=== PATIENT | male | born 1950 | race Caucasian/White ===

== ENCOUNTER 2016-07-11 05:14 | Inpatient (IN) | payer OTHER ==
[2016-07-05 10:48] LABS: INR 4.2; PROTIME 44.1 Seconds (9.3-11.4)
[2016-07-11] VITALS (9 sets, daily range): BP systolic 114–150; BP diastolic 65–96
[~2016-07-11] VITALS: Ht 175.3 cm; Wt 126.6 kg
--- NOTE | ~2016-07-11 | O ---
[facility] [place] [address] OPERATIVE REPORT Name: CHUCKIE CONTRERAS Room #: 426-P [facility] IN .R.#: [id number] Admission: 07/11/16 Attend Phys: Dell Pearce MD Discharge: Date of : 48 Report #: [id number] THIS REPORT FOR: //name// CC: Dell Paul DATE OF SERVICE: 07/11/2016 PREOPERATIVE DIAGNOSES: 1. Left hindfoot osteoarthritis. 2. Left foot flat foot. POSTOPERATIVE DIAGNOSES: 1. Left hindfoot osteoarthritis. 2. Left foot flat foot. PROCEDURE: Left foot triple arthrodesis. SURGEON: Dell Paerce M.D. ANESTHESIA: General. ESTIMATED BLOOD LOSS: Minimal. TOURNIQUET TIME: 90 minutes. DESCRIPTION OF PROCEDURE: The patient brought to the operating room where he is placed under general anesthesia. Once under adequate general anesthesia, his left lower extremity was prepped and draped in sterile manner. The extremity was elevated, exsanguinated, tourniquet placed to 300 mmHg. A lateral incision based over the sinus tarsi was then made to dissect down through the soft tissue to the extensor digitorum brevis and the fat pad overlying the sinus tarsi. This was then elevated off of the joint and subsequent exposure of the calcaneocuboid and subtalar joints was achieved. These were then subsequently prepared utilizing osteotomes, curettes and a erwin to good bleeding subchondral bone. A dorsal incision approximately 3 cm in length was made over the talonavicular joint, this was dissected down through soft tissue to the talonavicular joint, which was then exposed with a 15 blade and subsequently prepared in a similar manner as the subtalar and calcaneocuboid joints. Once prepared, a demineralized bone matrix allograft was placed into each of the joints and subsequent fixation across the subtalar joint was achieved with two 7.3 mm cannulated screws for fixation. Excellent fixation across this was achieved in excellent position. Two 4.5 mm cannulated screws were placed across the calcaneocuboid joint and three were placed across the talonavicular joint utilizing fluoroscopy for guidance. Once complete, excellent fixation and alignment was achieved, the wounds were irrigated copiously and closed with 2-[address] [address] OPERATIVE REPORT Name: DIANECHUCKIE L Room #: 426-P [facility] IN [facility].#: [id number] Admission: 07/11/16 Attend Phys: Dell Pearce MD Discharge: Date of : 48 Report #: [id number] Vicryl in deep and subcutaneous tissues and ania were used for the skin. The wounds were dressed with Xeroform, 4 x 4s and sterile soft compressive dressing and a short leg cast was then placed. Tourniquet was let down at 90 minutes. Toes were pink and warm with good capillary refill. There were no complications from the procedure. The patient tolerated the procedure well and went to recovery room without incident. <ELECTRONICALLY SIGNED> By: Dlel Pearce MD 07/13/16 0831 1101 1122 Dell Pearce MD /nt
--- NOTE | ~2016-07-11 | H ---
[facility] [address] [address] HISTORY AND PHYSICAL Name: CHUCKIE CONTRERAS Helga Room #: 426-P ADM IN M.R.#: [id number] Admission: 07/11/16 Attend Phys: Dell Pearce MD Discharge: Date of : 48 Report #: [id number] THIS REPORT FOR: //name// For History and Physical, please see office documentation/handwritten note in the patient's medical record. <ELECTRONICALLY SIGNED> By: Dell Pearce MD 07/14/16 0742 1533 Dell Pearce MD /
--- NOTE | ~2016-07-11 | HC ---
[facility] [place] [address] CONSULTATION Name: CHUCKIE CONTRERAS Room #: 426-P ADM IN M.R.#: [id number] Admission: 07/11/16 Attend Phys: Dell Pearce MD Discharge: Date of : 48 Report #: [id number] THIS REPORT FOR: //name// CC: Dell Modien Humberto DATE OF SERVICE: 07/14/2016 The patient was seen for consultation on 07/14/2016. REQUESTING PHYSICIAN: Dr. Eddy. REASON FOR CONSULTATION: Medical management. HISTORY OF PRESENT ILLNESS: The patient is a 66-year-old man who was admitted to the hospital for further evaluation and treatment on left flatfoot and the patient developed bilateral septic arthritis, and he underwent procedure for this as well. The patient is currently treated with antibiotics. He is recovering well. He tolerates physical therapy. He is currently afebrile, and has no complaints. His pain is well controlled. The patient was diagnosed with diabetes mellitus type 2 about 10 years ago. He takes metformin and glipizide at home, and does not take insulin. He denies chronic complications of diabetes. Although his creatinine has been elevated for quite some time, he is unaware of this. The patient states that his blood sugars are well controlled at home, reports glucose levels between 90 and 120 most of the time. While here, his blood sugars have been in the 120s. The patient cannot recall his last hemoglobin A1c. The patient also has history of hypertension. He denies history of coronary artery disease or strokes. His blood pressure has been mostly well controlled while he is here. Today, his blood pressure was borderline low, so lisinopril was held. Currently, the patient feels well. As noted, his pain is well controlled. He feels well. He denies shortness of breath, chest pain, or other symptoms. PAST MEDICAL HISTORY: 1. Diabetes mellitus type 2, diagnosed about 10 years ago. 2. Chronic kidney disease stage 3. 3. Chronic back pain status post back surgery. 4. Morbid obesity. 5. Hypertension. 6. GERD. [facility] [address] [place] [address] CONSULTATION Name: CHUCKIE CONTRERAS Helga Room #: 426-P [facility] IN [facility].#: [id number] Admission: 07/11/16 Attend Phys: Dell Pearce MD Discharge: Date of : 48 Report #: [id number] 7. DVT and PE, history, on chronic anticoagulation with Coumadin. 8. History of ____. 9. Dyslipidemia. CURRENT MEDICATIONS: Reviewed and documented in the patient's chart. FAMILY HISTORY: Reviewed and ____ the patient's current condition. SOCIAL HISTORY: The patient lives with his . He smokes cigarettes. He does not drink alcohol. PHYSICAL EXAMINATION: GENERAL: The patient is a middle-aged man who is in no apparent distress. He is alert and oriented x 3. VITAL SIGNS: Blood pressure currently is 94/48, heart rate is 102, respiration is 18, temperature is 98.4. HEENT: Pupils are equal. Eye movements are normal. Sclerae are anicteric. NECK: Supple. The patient has no thyromegaly. He has no JVD or carotid bruits. RESPIRATORY: Chest moves symmetrically with breathing. LUNGS: Clear to auscultation bilaterally. CARDIOVASCULAR: The patient has regular rhythm and rate. He has no murmurs, gallops, or rubs. GASTROINTESTINAL: Abdomen is soft, nondistended, and nontender. Bowel sounds are present. MUSCULOSKELETAL: Left leg is in cast. Range of motion cannot be assessed due to recent surgery at knee joints. He has no edema, cyanosis, or clubbing. NEUROLOGIC: The patient is alert and oriented x 3. His examination is nonfocal. SKIN: The patient has no skin lesions. Skin is dry and warm. LABORATORY DATA: Basic metabolic profile was essentially normal, except with creatinine of 1.7, which has been chronically elevated for at least 2 years, per our records. Glucose is 262. GFR is 40. On CBC, white count is normal. Hemoglobin is 12.2, hematocrit is 37.8, and platelets 230. ASSESSMENT AND PLAN: A 66-year-old man status post orthopedic surgery as detailed above. As noted, the patient had bilateral arthroscopic surgery at the mid joint for septic joint. The patient is doing well, and currently he is afebrile. He tolerated physical therapy well. 1. Diabetes mellitus type 2. The patient has hyperglycemia while he is here. Overall glycemic control is unclear, so we are checking hemoglobin A1c. Given the patient's history of chronic kidney disease and low creatinine clearance, we [address] [address] CONSULTATION Name: CHUCKIE CONTRERAS Helga Room #: 426-P ADM IN M.R.#: [id number] Admission: 07/11/16 Attend Phys: Dell Pearce MD Discharge: Date of : 48 Report #: [id number] will stop metformin, which is relatively contraindicated. The patient will be continued on Januvia and glipizide. He is already on sliding scale insulin, which will be continued for now. We will add Levemir 10 units at night, which will be adjusted depending on the glycemic control. 2. Hypertension. Currently, blood pressure is borderline low. Lisinopril was held today. We will reduce dose from 40 mg once a day to 20 mg once a day, and we will monitor. 3. Chronic kidney disease stage 3. Creatinine is 1.7, that is at baseline. This will be monitored. 4. Deep vein thrombosis prophylaxis. The patient has history of DVT and PE, so he was resumed on Coumadin. Current INR is 1.6. He is on Coumadin 10 mg. INR will be followed, and Coumadin will be adjusted accordingly. Subcutaneous Lovenox will be discontinued once INR is therapeutic. 5. Morbid obesity. We will continue to follow the patient during the hospitalization, and we will provide further recommendations. Once again we appreciate the opportunity of participating in the care of your patient. <ELECTRONICALLY SIGNED> By: Ashlee Carballo MD 07/15/16 1349 1706 0018 Ashlee Carballo MD /nt
--- NOTE | ~2016-07-11 | EKG ---
[address] [place] [employer] [place] [address] ELECTROCARDIOGRAM REPORT Name: CHUCKIE CONTRERAS Room #: PRE IN [facility]#: [id number] Admission: Attend Phys: Dell Pearce MD Discharge: Date of : 48 Report #: [id number] THIS REPORT FOR: //name// [facility] Test Date: 2016-07-05 Test Time: 10:31:45 Pat Name: CHUCKIE CONTRERAS Department: Room: Gender: M [employer]door [employer] Director: kaur burgos : 1950 Requested By: Dell Pearce Order Number: [id number] MD: Hai Moran Measurements Intervals [place] Rate: 95 P: 51 NV: 160 QRS: 2 QRSD: 100 T: 26 QT: 335 QTc: 421 Interpretive Statements Sinus rhythm Low voltage, precordial leads Compared to ECG 11/25/2015 09:39:55 No significant changes Electronically Signed On 07-05-2016 14:58:59 KEY ACCOUNT COORDINATOR by Hai Moran [email or web address] <ELECTRONICALLY SIGNED> By: Hai Moran MD 07/05/16 1458 30 30 Hai Moran MD /ASAEL
--- NOTE | ~2016-07-11 | O ---
[facility] [place] [address] [address] [place] [address] OPERATIVE REPORT Name: CHUCKIE CONTRERAS Helga Room #: 426-P [facility] IN .R.#: [id number] Admission: 07/11/16 Attend Phys: Dell Pearce MD Discharge: 07/15/16 Date of : 48 Report #: [id number] THIS REPORT FOR: //name// CC: Dell Paul DATE OF SERVICE: 07/14/2016 SERVICE: Orthopedics. POSTOPERATIVE DIAGNOSES: 1. Left knee septic arthritis. 2. Painful acute right knee effusion. 3. Bilateral knee osteoarthritis. 4. Diabetes mellitus. 5. Status post left ankle, hindfoot triple arthrodesis. COMPLICATIONS: None. DRAINS: None. SPECIMENS: 1. Left knee aspirate sent for cytology and cultures. 2. Right knee aspirate sent for cytology and cultures. FINDINGS: 1. Cloudy burns-colored fluid obtained from the left knee. 2. Yellowish cloudy fluid obtained from the right knee with an overall healthier appearance. 3. Six liters irrigated through both knees. NAME OF THE PROCEDURE: 1. Left knee arthroscopy with irrigation and debridement. 2. Right knee percutaneous irrigation. 3. Left ankle cast change under anesthesia. HISTORY AND INDICATIONS: The patient is a 66-year-old male with extensive list of medical comorbidities including diabetes and pulmonary disease who is 2 days status post left hindfoot triple arthrodesis at this facility. He was admitted postoperatively and did well the first postoperative day. That evening, he began developing swelling in the knees. On the second postoperative day, he began developing significant pain and worsening effusions and by the evening of the second postoperative day he had severe left knee and significant right knee pain as well. Clinically, the left knee was highly concerning for septic arthritis on physical examination with an immobile left knee secondary to severe pain, significant erythema and tenderness to palpation and a very large [facility] [address] [place] [address] OPERATIVE REPORT Name: CHUCKIE CONTRERAS Room #: 426-P [facility] IN [facility].#: [id number] Admission: 07/11/16 Attend Phys: Dell Pearce MD Discharge: 07/15/16 Date of : 48 Report #: [id number] effusion. The fluid was aspirated from the knee and sent for studies which were negative for crystals and demonstrated 18,000 white blood cells and 94% polymorphonuclear cells which are suggestive of infection in regards to the PMNs. He also had a low-grade temperature, was mildly tachycardic and had an increase in his respiratory rate secondary to the knee symptoms. His exam worsened in terms of tenderness throughout the night, although the right knee was less painful with range of motion. The left knee remained concerning for significant septic arthritis. I was concerned with his medical comorbidities that he would not tolerate a condition of bacteremia or perhaps sepsis and was in favor of a more aggressive approach to prevent florid infectious condition in the knees. Therefore, based on the physical examination available and laboratory findings, I recommended arthroscopic surgical irrigation and debridement of the left knee with evaluation of the right knee for possible similar procedure. I was specifically concerned with the right knee that this was an arthritic effusion that was at risk of seating or was also on an earlier stage of septic joint. Risks, benefits, alternatives and indications for surgery were discussed with him in detail and he agreed and wished to proceed as he was concerned with severity of his pain as well. Risks include but are not limited to pain, bleeding, infection, injury to nerves or blood vessels, persistent pain despite surgical intervention, failure to eradicate the infection and need for further surgery as well as complications related to anesthesia. We also discussed that culture studies may turntable man negative for an identified species. PROCEDURE IN DETAIL: After bilateral lower extremities were identified as operative extremities, the patient was then taken to the operating room where general endotracheal anesthesia was induced without complication with the anesthesiologist utilizing Glidescope and rapid sequence intubation. Antibiotics were held until the specimens were obtained. Bilateral lower extremities were left out and were prepped and draped in a standard sterile fashion and timeout procedure was performed. Because the right knee was less severe than the left knee, we maintained 2 separate surgical meléndez within the operative theater to avoid cross contamination and the right knee procedures were performed first to avoid introduction of any pathology from the left knee to the right knee should the right knee still be aseptic. Under sterile conditions, the right knee was aspirated via a lateral parapatellar approach and 30 mL of yellow cloudy fluid was obtained and was sent for cytology in a purple top tube and aerobic and anaerobic and gram stain studies as well. Then, a similar technique was used to aspirate the left knee and this fluid was burns and cloudy in appearance and did not have notable significant amount of blood present. At this point, with the difference in the clinical exam as well as the fluid analysis, I felt that a more aggressive approach in terms of surgical arthroscopy and debridement would be less advantageous in the right knee as we would like for the patient to be able to weightbear as tolerated on the right knee to mobilize. Therefore, percutaneous technique with approximately 2.5 mm [facility] [address] [place] [address] OPERATIVE REPORT Name: CHUCKIE CONTRERAS Room #: 426-P [facility] IN [place]#: [id number] Admission: 07/11/16 Attend Phys: Dell Pearce MD Discharge: 07/15/16 Date of : 48 Report #: [id number] cannula was utilized to place a proximal medial parapatellar and distal lateral portal in the knee and a total of 6 L were irrigated throughout the knee during the procedure. Regarding the left knee, a tourniquet was applied to the thigh but was not inflated during the procedure and an anteromedial portal was established in a standard technique and then the scope was introduced into the knee. There was a significant amount of fluid return and an anterolateral working portal was established in the outside-in technique utilizing spinal needle localization. There was noted to be significant osteoarthritis of the knee consistent with the preoperative x-rays. There was intense erythematous proliferative synovitis throughout the knee which was very red and inflamed and apparent. There was also quite a bit of cloudy material that was circulating through the knee within the synovial fluid. A shaver was introduced and a thorough debridement was performed with care taken to avoid excessive synovectomy as I was trying to avoid a dramatic hemarthrosis. The cloudy fluid was all irrigated out of the knee and clear fluid was obtained through the irrigant. A total of 6 L were irrigated through the left knee as well. While maintaining the separate instruments and surgical meléndez, both knee portal sites were closed with a 3-0 nylon suture and then a sterile dressing with an VANCE wrap was applied. The left foot, which was evaluated at the beginning of the case after the cast was taken down after the timeout, was noted to have healthy-appearing wounds without any signs of infection. There was dark pink skin on the dorsum of the midfoot that was concerning for perhaps cellulitis beginning of the case, but by the end of the case it completely resolved and was presumably cast related. The wound was cleaned with ChloraPrep and then a sterile dressing was applied and a well-padded short leg splint was then applied to the left lower extremity as well. The patient was awakened from anesthesia and taken to recovery room in stable condition. There were no complications and all counts were recorded as correct. <ELECTRONICALLY SIGNED> By: Amari Eddy MD 07/18/16 1135 0657 0957 Amari Eddy MD /nt
[~2016-07-11 05:14] MED LIST: ANORO ELLIPTA1 EACH IH; ASPIR 8181 MG PO; CALCIUM 600 +1 EAC1 PO; CENTRUM SILVER1 EAC4 PO; COLACE100 MG PO; COUMADIN 10MG T10 M1 PO; COUMADIN 5 MG TA5 M1; COUMADIN7.5 MG PO; FLEXERIL PO; GLIPIZIDE 10 MG10 MG PO; GLUCOPHAGE1000 MG PO; HYDROCODONE-APA1 TA1 PO; JANUVIA100 MG PO; LISINOPRIL PO; LISINOPRIL20 MG PO; METFORMIN HCL500 MG PO; MIRAPEX0.5 MG PO; MOBIC7.5 MG PO; NEXIUM40 MG PO; NORCO 10-325 T1 EACH PO; OMEGA-31000 M1 PO; PERCOCET 5-3251 EACH PO; RANITIDINE HCL300 MG PO; ROPINIROLE HCL5 MG PO; SUPER B COMPLE150 MG PO; TYLENOL325 MG PO; VITAMIN E400 UNI4 PO; VITAMINC500 PO; ZANTAC 150MG T150 MG; ZOCOR20 MG PO
[2016-07-11 07:17] LABS: PROTIME 10.3 Seconds (9.3-11.4)
[2016-07-12 04:00] VITALS: BP 131/65
[2016-07-12 05:38] LABS: HEMATOCRIT 40.2 % (42.0-52.0); HEMOGLOBIN 12.9 gm/dL (14.0-18.0)
[2016-07-12 05:57] LABS: CALCIUM 8.5 mg/dL (8.5-10.1); CREATININE 1.5 mg/dL (0.6-1.3); MAGNESIUM 1.7 mg/dL (1.8-2.4); POTASSIUM 4.7 mmol/L (3.5-5.1)
[2016-07-12 07:32] VITALS: BP 132/67
[2016-07-12 16:30] VITALS: BP 123/44
[2016-07-12 20:30] VITALS: BP 155/47
[2016-07-13 04:30] VITALS: BP 123/77
[2016-07-13 08:28] VITALS: BP 138/111
[2016-07-13 16:58] VITALS: BP 125/64
[2016-07-13 19:51] LABS: TOTAL VOLUME 5
[2016-07-13 20:00] VITALS: BP 94/48
[2016-07-13 23:07] LABS: BF MACROPHAGE 5%
[2016-07-13 23:08] LABS: BF LINING CELLS 0%
[2016-07-13 23:09] LABS: BF NUCLEATED CELLS 17990/mm3; BF RBC 3000/uL
[2016-07-13 23:11] LABS: CLARITY Hazy (Clear); COLOR Yellow (())
[2016-07-14 00:26] LABS: HEMATOCRIT 37.8 % (42.0-52.0); HEMOGLOBIN 12.2 gm/dL (14.0-18.0); MCH 28.6 pg (26.0-34.0); MCHC 32.4 % (28.0-37.0); MCV 88.4 fL (80.0-100.0); PLATELET COUNT 230 thou/uL (150-400); RBC 4.28 mil/uL (4.50-6.00); RDW 15.2 % (10.5-14.5); WBC 8.5 thou/uL (4.0-11.0)
[2016-07-14 00:31] LABS: CALCIUM 8.4 mg/dL (8.5-10.1); CREATININE 1.7 mg/dL (0.6-1.3); POTASSIUM 4.8 mmol/L (3.5-5.1)
[2016-07-14 00:38] LABS: MANUAL DIFF YES
[2016-07-14 01:44] LABS: ABSOLUTE NEUTROPHILS 5.4 thou/uL (1.4-8.2); ANISOCYTOSIS SLIGHT; LARGE PLATELETS RARE; TOTAL CELL COUNT 100
[2016-07-14 07:12] LABS: BF MACROPHAGE 8 % (Not Estab.); BF NEUTROPHILS 90 % (0-24); BF NUCLEATED CELLS 9872 /mm3 (0-499); BF RBC 1000 /uL (Not Estab.); CLARITY CD (Clear); COLOR CL (())
[2016-07-14 07:12] LABS: BF MACROPHAGE 2 % (Not Estab.); BF NEUTROPHILS 95 % (0-24); BF NUCLEATED CELLS 17347 /mm3 (0-499); BF RBC 4000 /uL (Not Estab.); CLARITY CD (Clear); COLOR CL (())
[2016-07-14 08:44] LABS: TOTAL VOLUME 5
[2016-07-14 08:44] LABS: TOTAL VOLUME 5
[2016-07-14 09:25] LABS: INR 1.6; PROTIME 16.6 Seconds (9.3-11.4)
[2016-07-14 17:03] VITALS: BP 98/45
[2016-07-14 22:00] VITALS: BP 98/49
[2016-07-15 01:15] VITALS: BP 135/61
[2016-07-15 02:10] LABS: GLYCOHEMOGLOBIN (HGB A1C) 7.2 % (4.8-5.6)
[2016-07-15 04:09] VITALS: BP 119/62
[2016-07-15 06:29] LABS: HEMATOCRIT 34.2 % (42.0-52.0); HEMOGLOBIN 11.1 gm/dL (14.0-18.0); MANUAL DIFF YES; MCH 28.5 pg (26.0-34.0); MCHC 32.5 % (28.0-37.0); MCV 87.6 fL (80.0-100.0); PLATELET COUNT 243 thou/uL (150-400); RDW 14.7 % (10.5-14.5); WBC 9.9 thou/uL (4.0-11.0)
[2016-07-15 06:37] LABS: INR 1.9; PROTIME 19.4 Seconds (9.3-11.4)
[2016-07-15 06:42] LABS: CALCIUM 8.2 mg/dL (8.5-10.1); CREATININE 1.8 mg/dL (0.6-1.3); POTASSIUM 5.1 mmol/L (3.5-5.1)
[2016-07-15 07:40] VITALS: BP 105/54
[2016-07-15 08:15] LABS: ABSOLUTE NEUTROPHILS 7.1 thou/uL (1.4-8.2); ANISOCYTOSIS 1+; TOTAL CELL COUNT 100
[2016-07-15 09:25] VITALS: BP 105/54
[2016-07-15] MEDS ORDERED: LORTAB 7.5-3251 EACH PO (09:39)
[2016-07-15] MEDS ORDERED: HUMALOG100 UNIT/1 SUBQ (12:03)
== END 2016-07-15 13:10 | DRG 493 ==
LOC: 4E 05:14 → TBA 05:14 → 4E 12:32 → PRE 13:14 → 4E 07-15 13:10
PROVIDERS: Internal Medicine Endocrinology, Diabetes & Metabolism; Orthopaedic Surgery Foot and Ankle Surgery; Orthopaedic Surgery Sports Medicine
PROC: 0SGJ0KZ Fusion of Left Tarsal Joint with Nonautologous Tissue Substitute, Open Approach (ICD-10-PCS; principal; 2016-07-11)
PROC: 0SBG0ZZ Excision of Left Ankle Joint, Open Approach (ICD-10-PCS; 2016-07-14)
DX: M21.42 Flat foot [pes planus] (acquired), left foot (principal); M00.9 Pyogenic arthritis, unspecified; Z68.41 Body mass index [BMI] 40.0-44.9, adult; M19.072 Primary osteoarthritis, left ankle and foot; G25.81 Restless legs syndrome; E11.22 Type 2 diabetes mellitus with diabetic chronic kidney disease; I12.9 Hypertensive chronic kidney disease with stage 1 through stage 4 chronic kidney disease, or unspecified chronic kidney disease; N18.3 Chronic kidney disease, stage 3 (moderate); M48.06 Spinal stenosis, lumbar region; K21.9 Gastro-esophageal reflux disease without esophagitis; E78.5 Hyperlipidemia, unspecified; E11.65 Type 2 diabetes mellitus with hyperglycemia; E66.01 Morbid (severe) obesity due to excess calories; M25.461 Effusion, right knee; Z86.718 Personal history of other venous thrombosis and embolism; Z86.711 Personal history of pulmonary embolism; Z85.51 Personal history of malignant neoplasm of bladder; Z88.8 Allergy status to other drugs, medicaments and biological substances; Z28.21 Immunization not carried out because of patient refusal
CPT/HCPCS: 10783; 50010; 50101; 50386; 50405; 50612; 50679; 51014; 51038; 52120; 53023; 53347; 54170; 55430; 56524; 56527; 57091; 62110; 62900; 64031; 70005

== ENCOUNTER → 2016-10-07 | Outpatient (CLI) | payer OTHER ==
[~2016-10-07] MED LIST changes: +HUMALOG100 UNIT/1 SUBQ; +LORTAB 7.5-3251 EACH PO
== END ==
LOC: ULTRA 08:31
DX: N20.0 Calculus of kidney (principal); R10.9 Unspecified abdominal pain

== ENCOUNTER → 2016-10-18 | Outpatient (CLI) | payer OTHER | LOC: NUC 07:55 | DX: R10.9 Unspecified abdominal pain (principal) ==

== ENCOUNTER → 2017-02-15 | Outpatient (CLI) | payer OTHER ==
[~2017-02-15] VITALS: Ht 172.7 cm; Wt 127.0 kg
[~2017-02-15] MED LIST changes: +TOPROL XL25 MG
--- NOTE | ~2017-02-15 | CATHLAB ---
[facility] [place] [employer] [place] [address] INVASIVE PROCEDURE REPORT Name: CHUCKIE CONTRERAS Room #: REG [facility]#: [id number] Admission: 02/15/17 Attend Phys: Сергей Mariee MD Discharge: Date of : 48 Date of Service: 02/15/17 1701 Report #: [id number] THIS REPORT FOR: //name// APPROVED REPORT Patient Details Patient Status: Out-Patient Room #: The patient is a 66 year-old male Event Personnel Сергей Mariee Associate Drafter, Baldomero Georges El-Ghussein, Yasmeen RN Monitor, José Luis Laura RN Procedures Performed Left Heart Cath w/or w/o Coronaries [id number] [facility] Indication Dyspnea, Unstable angina Risk Factors Hypercholesterolemia, Hypertension, Tobacco History () Procedure Narrative The Right Groin^ was infiltrated with 1% Lidocaine subcutaneous anesthesia. A PINNACLE 6FR Sheath #[id number] sheath was inserted into the RFA^. Coronary angiography was performed using coronary diagnostic catheters. The right coronary system was accessed and visualized with a JR4 catheter. The left coronary system was accessed and visualized with a JL5 catheter. The left ventricle was accessed and visualized with a PIGTAIL catheter. Left ventricular/Aortic Valve gradient assessed via catheter pullback. Closure device was deployed with a 6 Fr MYNXGRIP 6/7F #[id number]. The patient tolerated the procedure well and there were no complications associated with the procedure. There was no hematoma. Intraoperative Conscious Sedation Sedation start time: 8:30 Case end Time: 8:57 Fentanyl 25 mcg Versed 1 mg Fluoro Time: 3.80 minutes Dose: DAP 51730.91 cGycm2 1367 mGy Contrast Type and Amount: Visipaque 120 ml Coronary Angiography [address] [address] INVASIVE PROCEDURE REPORT Name: CHUCKIE CONTRERAS Room #: REG [facility]#: [id number] Admission: 02/15/17 Attend Phys: Сергей Mariee MD Discharge: Date of : 48 Date of Service: 02/15/17 1701 Report #: [id number] The patient's coronary anatomy is co- dominant. Diagnostic Cath Left Main Large caliber vessel with mild disease at the ostium. LAD Moderate size caliber vessel, traveling down the anterior wall and wrapping around the apex. There may be some minimal luminal irregularities within the mid segment. Diagonal 1 No flow-limiting lesions. Diagonal 2 No flow-limiting lesions. Circumflex Codominant vessel with no flow-limiting lesions. OM1 No flow-limiting lesions. OM2 No flow-limiting lesions. OM3 No flow-limiting lesions. Right Coronary Supplies a PDA, no flow limiting lesions. Left Ventriculography Left Ventriculography was not performed. An LVEDP was measured and no evidence for a gradient across the LVOT. Conclusion 1. Minimal plaquing as described above. 2. Recommend medical therapy. Recommendations Aggressive Medical Therapy <ELECTRONICALLY SIGNED> By: Сергей Mariee MD 02/15/171700 00 00 Сергей Mariee MD /INF
[2017-02-15 07:20] VITALS: BP 114/60
[2017-02-15 07:49] LABS: HEMATOCRIT 40.3 % (42.0-52.0); HEMOGLOBIN 13.4 gm/dL (14.0-18.0); MCH 28.9 pg (26.0-34.0); MCHC 33.3 g/dL (28.0-37.0); RBC 4.63 mil/uL (4.50-6.00); WBC 9.3 thou/uL (4.0-11.0)
[2017-02-15 08:03] LABS: CALCIUM 8.6 mg/dL (8.5-10.1); CREATININE 1.5 mg/dL (0.7-1.3); POTASSIUM 4.5 mmol/L (3.5-5.1)
== END | disposition home or self-care (01) ==
LOC: CATH 06:32
PROVIDERS: Internal Medicine Cardiovascular Disease
DX: I25.10 Atherosclerotic heart disease of native coronary artery without angina pectoris (principal); I10 Essential (primary) hypertension; E78.00 Pure hypercholesterolemia, unspecified; E13.9 Other specified diabetes mellitus without complications; J44.9 Chronic obstructive pulmonary disease, unspecified; I25.2 Old myocardial infarction; I73.89 Other specified peripheral vascular diseases; K21.9 Gastro-esophageal reflux disease without esophagitis; M19.90 Unspecified osteoarthritis, unspecified site; Z85.51 Personal history of malignant neoplasm of bladder; Z98.890 Other specified postprocedural states; Z72.0 Tobacco use; Z79.82 Long term (current) use of aspirin; Z79.4 Long term (current) use of insulin; Z79.899 Other long term (current) drug therapy

== ENCOUNTER 2017-03-31 22:59 | Inpatient (IN) | payer OTHER ==
[~2017-03-31] VITALS: Ht 172.7 cm; Wt 126.1 kg
--- NOTE | ~2017-03-31 | HC ---
[facility] [place] [address] CONSULTATION Name: CHUCKIE CONTRERAS Room #: 402-P ADM IN M.R.#: [id number] Admission: 04/01/17 Attend Phys: Rufus Burch DO Discharge: Date of : 48 Report #: [id number] THIS REPORT FOR: //name// CC: Rufus Paul REASON FOR CONSULTATION: I was asked to evaluate concerning bilateral knee arthritis. HISTORY OF PRESENT ILLNESS: The patient was a 66-year-old who was admitted on 04/01/2017 with increased right knee pain and swelling. He does have an underlying history of degenerative arthritis. Last year, he underwent fusion of the left ankle. Postoperatively, he had bilateral knee arthritis that required drainage and surgical I and D. No crystals were seen. No infection was identified at that time. This was in 07/2016. He returns now with increased pain in the right knee. Subsequently, he has developed discomfort in the left knee with associated swelling. No fever, chills or sweats. He is on Coumadin. The right knee had bloody fluid aspirated. It did have elevated white blood cell count, but was in accordance with the amount of blood that was present. No steroid injection was performed. Subsequently, he developed increased pain and swelling in his left knee. Aspiration again performed today showed 19,000 cells, 75% neutrophils. No crystals were seen. Gram stain is pending. His sedimentation rate was 22. X-rays revealed degenerative arthritis changes. ALLERGIES: ADHESIVES TAPE, OTHERWISE NO KNOWN ALLERGIES. MEDICATIONS: No recent antibiotics. No corticosteroids. The patient was on Coumadin prior to admission. PAST MEDICAL HISTORY, FAMILY HISTORY, SOCIAL HISTORY: Unchanged from his history and physical, which was reviewed in detail. REVIEW OF SYSTEMS: No cough or sputum production. No nausea, vomiting or diarrhea. PHYSICAL EXAMINATION: VITAL SIGNS: Afebrile, hemodynamically stable. GENERAL: Alert and cooperative. Moderately obese. HEENT: Unremarkable. CHEST: Clear. HEART: Regular. ABDOMEN: Soft and nontender. EXTREMITIES: Bilateral knee effusions, 1+ on the right and 1+ on the left. No associated warmth or erythema. Reasonable range of motion. Postoperative changes involving the left ankle. The patient was able to ambulate reasonably well. No other areas of arthritis were identified. [address] [address] CONSULTATION Name: CHUCKIE CONTRERAS SELENA Room #: [address] [place] [address] IN M.R.#: [id number] Admission: 04/01/17 Attend Phys: Rufus Burch DO Discharge: Date of : 48 Report #: [id number] LABORATORY STUDIES: Body fluid analysis as noted. Sodium 133, potassium 5.5, bicarbonate 27, creatinine 1.6. Hemoglobin 12.4, WBC 9.2, platelet count 292,000. INR 1. Blood cultures and the aspirate cultures are pending. IMPRESSION: A 66-year-old with bilateral knee arthritis. This suggests noninfectious arthropathy. Degenerative arthritis would be most likely. We will also check autoimmune parameters. Multiple aspirations have failed to identify any crystals. We would observe off antibiotics at this point in time. I would consider oral corticosteroids versus waiting for final culture results and considering steroid injection. <ELECTRONICALLY SIGNED> By: Anand June MD 04/05/17 1304 1629 01 nAand June MD /nt
[2017-03-31 23:19] VITALS: BP 125/62
[2017-04-01 03:13] LABS: ABSOLUTE NEUTROPHILS 8.9 thou/uL (1.4-8.2); BASOPHILS 0.4 % (0.0-2.0); HEMATOCRIT 41.8 % (42.0-52.0); HEMOGLOBIN 13.7 gm/dL (14.0-18.0); MCH 28.7 pg (26.0-34.0); MCHC 32.7 g/dL (28.0-37.0); MCV 87.6 fL (80.0-100.0); MONOCYTES 10.2 % (1.0-8.0); PLATELET COUNT 296 thou/uL (150-400); POLYS 76.4 % (36.0-66.0); RBC 4.77 mil/uL (4.50-6.00); RDW 15.8 % (10.5-14.5); WBC 11.6 thou/uL (4.0-11.0)
[2017-04-01 03:15] LABS: MANUAL DIFF NO
[2017-04-01 03:21] LABS: CALCIUM 8.7 mg/dL (8.5-10.1); CREATININE 1.6 mg/dL (0.7-1.3); POTASSIUM 4.5 mmol/L (3.5-5.1)
[2017-04-01 03:51] LABS: CLARITY BLOODY; COLOR RED; MANUAL DIFF YES; TOTAL VOLUME 7 mL
[2017-04-01 04:06] LABS: BF NUCLEATED CELLS 37152; BF RBC 504868
[2017-04-01 04:41] LABS: BF CRYSTALS No Crystals seen
[2017-04-01 05:04] LABS: BF NEUTROPHILS 81
[2017-04-01 06:27] VITALS: BP 124/95
[2017-04-01 06:50] VITALS: BP 127/82
[2017-04-01 08:00] VITALS: BP 128/61
[2017-04-01 16:00] VITALS: BP 135/65
[2017-04-01 16:23] LABS: PROTIME 76.9 Seconds (9.3-11.4)
[2017-04-01 16:25] LABS: INR 7.8
[2017-04-01 19:03] VITALS: BP 115/62
[2017-04-02 03:19] VITALS: BP 121/55
[2017-04-02 04:33] LABS: HEMATOCRIT 38.6 % (42.0-52.0); HEMOGLOBIN 12.9 gm/dL (14.0-18.0); MCH 29.3 pg (26.0-34.0); MCHC 33.5 g/dL (28.0-37.0); MCV 87.6 fL (80.0-100.0); PLATELET COUNT 272 thou/uL (150-400); RDW 15.9 % (10.5-14.5); WBC 9.9 thou/uL (4.0-11.0)
[2017-04-02 04:36] LABS: MANUAL DIFF YES
[2017-04-02 04:43] LABS: CALCIUM 8.5 mg/dL (8.5-10.1); CREATININE 1.4 mg/dL (0.7-1.3); POTASSIUM 4.5 mmol/L (3.5-5.1)
[2017-04-02 04:44] LABS: PROTIME 46.2 Seconds (9.3-11.4)
[2017-04-02 04:53] LABS: INR 4.6
[2017-04-02 06:22] LABS: ABSOLUTE NEUTROPHILS 6.1 thou/uL (1.4-8.2); ANISOCYTOSIS SLIGHT; TOTAL CELL COUNT 100
[2017-04-02 08:00] VITALS: BP 130/73
[2017-04-02 16:00] VITALS: BP 118/56
[2017-04-02 19:14] VITALS: BP 114/62
[2017-04-03 06:19] LABS: HEMATOCRIT 37.1 % (42.0-52.0); HEMOGLOBIN 12.2 gm/dL (14.0-18.0); MCH 29.1 pg (26.0-34.0); MCHC 32.9 g/dL (28.0-37.0); MCV 88.2 fL (80.0-100.0); PLATELET COUNT 271 thou/uL (150-400); RBC 4.21 mil/uL (4.50-6.00); RDW 15.4 % (10.5-14.5); WBC 9.2 thou/uL (4.0-11.0)
[2017-04-03 06:30] LABS: CALCIUM 8.5 mg/dL (8.5-10.1); CREATININE 1.5 mg/dL (0.7-1.3); POTASSIUM 4.6 mmol/L (3.5-5.1)
[2017-04-03 06:32] LABS: PROTIME 14.1 Seconds (9.3-11.4)
[2017-04-03 06:37] LABS: MANUAL DIFF YES
[2017-04-03 06:49] LABS: INR 1.4
[2017-04-03 08:00] VITALS: BP 105/56
[2017-04-03 08:15] LABS: ABSOLUTE NEUTROPHILS 6.2 thou/uL (1.4-8.2); ANISOCYTOSIS SLIGHT; TOTAL CELL COUNT 100
[2017-04-03 20:00] VITALS: BP 112/57
[2017-04-04 04:07] VITALS: BP 112/52
[2017-04-04 06:32] LABS: PROTIME 10.6 Seconds (9.3-11.4)
[2017-04-04 08:52] VITALS: BP 112/47
[2017-04-04 09:43] LABS: HEMATOCRIT 37.9 % (42.0-52.0); HEMOGLOBIN 12.4 gm/dL (14.0-18.0); MCHC 32.8 g/dL (28.0-37.0); MCV 88.6 fL (80.0-100.0); RBC 4.28 mil/uL (4.50-6.00); RDW 15.5 % (10.5-14.5); WBC 9.2 thou/uL (4.0-11.0)
[2017-04-04 09:47] LABS: CALCIUM 8.5 mg/dL (8.5-10.1); CREATININE 1.6 mg/dL (0.7-1.3); POTASSIUM 5.5 mmol/L (3.5-5.1)
[2017-04-04 09:59] LABS: BF CRYSTALS No Crystals seen
[2017-04-04 09:59] LABS: CLARITY CLOUDY; COLOR YELLOW; MANUAL DIFF YES; TOTAL VOLUME 30 mL
[2017-04-04 10:48] LABS: BF NUCLEATED CELLS 19186; BF RBC 8514
[2017-04-04 13:09] LABS: BF NEUTROPHILS 75
[2017-04-04 15:30] VITALS: BP 110/54
[2017-04-04 22:04] VITALS: BP 105/51
[2017-04-05 04:14] VITALS: BP 116/51
[2017-04-05 07:20] VITALS: BP 106/47
[2017-04-05 09:44] LABS: HEMATOCRIT 36.7 % (42.0-52.0); HEMOGLOBIN 11.9 gm/dL (14.0-18.0); MCH 28.8 pg (26.0-34.0); MCHC 32.5 g/dL (28.0-37.0); MCV 88.8 fL (80.0-100.0); RBC 4.13 mil/uL (4.50-6.00); RDW 15.2 % (10.5-14.5); WBC 7.1 thou/uL (4.0-11.0)
[2017-04-05 09:54] LABS: CALCIUM 9.1 mg/dL (8.5-10.1); CREATININE 1.6 mg/dL (0.7-1.3); POTASSIUM 5.8 mmol/L (3.5-5.1)
[2017-04-05 13:37] VITALS: BP 106/47
[2017-04-05] MEDS ORDERED: COUMADIN7.5 MG PO (14:35)
[2017-04-05] MEDS ORDERED: PERCOCET 10-321 EACH PO (14:37)
[2017-04-05 15:06] VITALS: BP 106/47
== END 2017-04-05 15:28 | disposition home health service (06) | DRG 554 ==
LOC: ER 22:59 → 4N 04-01 04:59 → EROBS 04-01 04:59 → 4N 04-01 06:53 → ENTRNSPT 04-05 15:15 → EDTRNSPTSTS 04-05 15:21 → 4N 04-05 15:28
PROVIDERS: Emergency Medicine; Internal Medicine; Internal Medicine Endocrinology, Diabetes & Metabolism; Orthopaedic Surgery Sports Medicine; Specialist
PROC: 0S9D3ZX Drainage of Left Knee Joint, Percutaneous Approach, Diagnostic (ICD-10-PCS; principal; 2017-04-04)
DX: M17.0 Bilateral primary osteoarthritis of knee (principal); M25.0 Hemarthrosis; M02.30 Reiter's disease, unspecified site; E78.00 Pure hypercholesterolemia, unspecified; K21.9 Gastro-esophageal reflux disease without esophagitis; E11.51 Type 2 diabetes mellitus with diabetic peripheral angiopathy without gangrene; F17.210 Nicotine dependence, cigarettes, uncomplicated; M25.461 Effusion, right knee; G25.81 Restless legs syndrome; E78.5 Hyperlipidemia, unspecified; I12.9 Hypertensive chronic kidney disease with stage 1 through stage 4 chronic kidney disease, or unspecified chronic kidney disease; E11.22 Type 2 diabetes mellitus with diabetic chronic kidney disease; N18.3 Chronic kidney disease, stage 3 (moderate); Z79.4 Long term (current) use of insulin; Z86.711 Personal history of pulmonary embolism; Z86.718 Personal history of other venous thrombosis and embolism; Z82.49 Family history of ischemic heart disease and other diseases of the circulatory system; Z83.3 Family history of diabetes mellitus; Z82.5 Family history of asthma and other chronic lower respiratory diseases; Z91.09 Other allergy status, other than to drugs and biological substances; Z85.51 Personal history of malignant neoplasm of bladder
CPT/HCPCS: 10091

== ENCOUNTER 2017-06-23 01:18 | Inpatient (IN) | payer OTHER ==
[2017-06-23] VITALS (7 sets, daily range): BP systolic 97–134; BP diastolic 46–77
[~2017-06-23] VITALS: Ht 175.3 cm; Wt 122.9 kg
--- NOTE | ~2017-06-23 | EKG ---
[address] [place] [address] ELECTROCARDIOGRAM REPORT Name: CHUCKIE CONTRERAS Room #: 359-P ADM IN M.R.#: [id number] Admission: 06/23/17 Attend Phys: Rufus Burch DO Discharge: Date of : 48 Report #: [id number] THIS REPORT FOR: //name// [facility] ED Test Date: 2017-06-23 Test Time: 01:56:00 Pat Name: CHUCKIE CONTRERAS Department: Room: 359 Gender: M Coding Specialist Home Health: BUD : 1950 Requested By: Seun Ceballos Order Number: [id number] MD: Mario Alberto Diaz Measurements Intervals [place]man Rate: 105 P: 38 HI: 151 QRS: -20 QRSD: 103 T: 29 QT: 322 QTc: 426 Interpretive Statements Sinus tachycardia Borderline left axis deviation Low voltage, precordial leads Baseline wander in lead(s) V4 Compared to ECG 12/31/2016 15:30:54 No significant change was found Electronically Signed On 06-23-2017 9:18:15 PASTE UP ARTIST APPRENTICE by Mario Alberto Daiz [email or web address] <ELECTRONICALLY SIGNED> By: Mario Alberto Diaz MD, FACC 06/23/17 0918 0156 0156 Mario Alberto Diaz MD, [facility] /EPI
[~2017-06-23 01:18] MED LIST changes: +MOBIC15 MG PO; +NORCO 5-325 TA1 EACH PO; +PERCOCET 10-321 EACH PO; +VALIUM5 MG PO
[2017-06-23 01:59] LABS: HEMATOCRIT 39.2 % (42.0-52.0); HEMOGLOBIN 12.8 gm/dL (14.0-18.0); MCH 28.1 pg (26.0-34.0); MCHC 32.8 g/dL (28.0-37.0); MCV 85.6 fL (80.0-100.0); RBC 4.58 mil/uL (4.50-6.00); RDW 15.4 % (10.5-14.5); WBC 13.9 thou/uL (4.0-11.0)
[2017-06-23 02:03] LABS: ANION GAP 14 mmol/L (7-16); BUN 33 mg/dL (7-18); CALCIUM 8.3 mg/dL (8.5-10.1); CHLORIDE 103 mmol/L (98-107); CO2 21 mmol/L (21-32); CREATININE 2.1 mg/dL (0.7-1.3); GLUCOSE 120 mg/dL (74-106); POTASSIUM 4.3 mmol/L (3.5-5.1); SODIUM 138 mmol/L (136-145)
[2017-06-23 02:11] LABS: TROPONIN-I < 0.04 ng/mL (<0.06)
[2017-06-23 02:28] LABS: BE(vivo) -4.5 mmol/L (-2 to +3); HCO3 19.4 mmol/L (22.0-26.0); PCO2 32.5 mmHg (35.0-45.0); PO2 57.8 mmHg (80.0-100.0); pH 7.394 (7.360-7.450); sO2 90.3 % (92.0-98.0)
[2017-06-23 04:58] LABS: INR 2.4; PROTIME 24.5 Seconds (9.3-11.4)
[2017-06-24 03:10] LABS: HEMATOCRIT 38.4 % (42.0-52.0); HEMOGLOBIN 12.3 gm/dL (14.0-18.0); MCH 27.7 pg (26.0-34.0); MCV 86.6 fL (80.0-100.0); RBC 4.44 mil/uL (4.50-6.00); RDW 15.3 % (10.5-14.5); WBC 12.3 thou/uL (4.0-11.0)
[2017-06-24 03:26] LABS: CALCIUM 8.2 mg/dL (8.5-10.1); CREATININE 1.9 mg/dL (0.7-1.3); POTASSIUM 4.2 mmol/L (3.5-5.1)
[2017-06-24 03:57] VITALS: BP 114/58
[2017-06-24 08:00] VITALS: BP 108/56
[2017-06-24 12:00] VITALS: BP 111/49
[2017-06-24 16:00] VITALS: BP 105/51
[2017-06-24 20:10] VITALS: BP 115/49
[2017-06-25 05:05] VITALS: BP 116/45
[2017-06-25 07:35] LABS: HEMATOCRIT 39.1 % (42.0-52.0); HEMOGLOBIN 12.9 gm/dL (14.0-18.0); MCHC 32.9 g/dL (28.0-37.0); MCV 85.1 fL (80.0-100.0); RBC 4.59 mil/uL (4.50-6.00); RDW 15.7 % (10.5-14.5); WBC 13.3 thou/uL (4.0-11.0)
[2017-06-25 07:37] VITALS: BP 114/59
[2017-06-25 07:44] LABS: CALCIUM 8.6 mg/dL (8.5-10.1); CREATININE 1.4 mg/dL (0.7-1.3); POTASSIUM 4.6 mmol/L (3.5-5.1)
[2017-06-25 07:47] LABS: INR 1.2
[2017-06-25 11:29] VITALS: BP 104/66
[2017-06-25 15:29] VITALS: BP 112/57
[2017-06-25 19:07] VITALS: BP 129/52
[2017-06-26 03:25] VITALS: BP 129/51
[2017-06-26 04:29] LABS: INR 1.4; PROTIME 14.1 Seconds (9.3-11.4)
[2017-06-26 08:25] VITALS: BP 113/53
[2017-06-26] MEDS ORDERED: LEVAQUIN 500 M500 M2 PO (09:33)
[2017-06-26] MEDS ORDERED: PREDNISONE 10 M10 MG PO (09:34)
[2017-06-26 12:02] VITALS: BP 113/53
[2017-06-27 22:07] LABS: ADENOVIRUS Negative (Negative); INFLUENZA A Positive (Negative); INFLUENZA B Negative (Negative); METAPNEUMOVIRUS Negative (Negative); PARAINFLUENZA 1 Negative (Negative); PARAINFLUENZA 2 Negative (Negative); PARAINFLUENZA 3 Negative (Negative); RHINOVIRUS Negative (Negative); RSV A Negative (Negative); RSV B Negative (Negative)
[2017-06-29 00:07] LABS: ADENOVIRUS Negative (Negative); INFLUENZA A Negative (Negative); INFLUENZA B Negative (Negative); METAPNEUMOVIRUS Negative (Negative); PARAINFLUENZA 1 Negative (Negative); PARAINFLUENZA 2 Negative (Negative); PARAINFLUENZA 3 Negative (Negative); RHINOVIRUS Negative (Negative); RSV A Negative (Negative); RSV B Negative (Negative)
[2017-08-18] MEDS ORDERED: PRAMIPEXOLE DI0.5 MG PO (08:38)
[2017-08-18] MEDS ORDERED: PRINIVIL40 MG PO (08:40)
[2017-08-18] MEDS ORDERED: MOBIC7.5 MG PO (08:40)
[2017-08-18] MEDS ORDERED: TOPROL XL50 MG PO (08:41)
[2017-08-18] MEDS ORDERED: ENOXAPARIN40 MG/0.1 SUBQ (08:45)
[2017-08-18] MEDS ORDERED: COUMADIN 1MG TAB1 M1 PO (08:46)
[2017-08-18] MEDS ORDERED: VITAMIN E400 UNIT PO (08:47)
[2017-08-18] MEDS ORDERED: CALCIUM 600 +1 EAC1 PO (08:47)
[2017-08-18] MEDS ORDERED: VITAMINC500 PO (08:47)
[2017-08-18] MEDS ORDERED: SUPER B COMPLE150 MG PO (08:47)
[2017-08-18] MEDS ORDERED: FISH OIL 1,2001 EAC3 PO (08:48)
[2017-08-18] MEDS ORDERED: PERCOCET PO (08:51)
== END 2017-06-26 12:39 | disposition home or self-care (01) | DRG 871 ==
LOC: ER 01:18 → EROBS 02:31 → 3W 02:31
PROVIDERS: Emergency Medicine; Family Medicine; Internal Medicine Pulmonary Disease; Nurse Practitioner Family
DX: A41.9 Sepsis, unspecified organism (principal); J18.9 Pneumonia, unspecified organism; J96.21 Acute and chronic respiratory failure with hypoxia; N17.9 Acute kidney failure, unspecified; J44.1 Chronic obstructive pulmonary disease with (acute) exacerbation; J44.0 Chronic obstructive pulmonary disease with (acute) lower respiratory infection; I12.0 Hypertensive chronic kidney disease with stage 5 chronic kidney disease or end stage renal disease; E78.00 Pure hypercholesterolemia, unspecified; K21.9 Gastro-esophageal reflux disease without esophagitis; M19.90 Unspecified osteoarthritis, unspecified site; E11.51 Type 2 diabetes mellitus with diabetic peripheral angiopathy without gangrene; E11.22 Type 2 diabetes mellitus with diabetic chronic kidney disease; G25.81 Restless legs syndrome; D72.829 Elevated white blood cell count, unspecified; G47.33 Obstructive sleep apnea (adult) (pediatric); F17.210 Nicotine dependence, cigarettes, uncomplicated; N18.9 Chronic kidney disease, unspecified; Z86.718 Personal history of other venous thrombosis and embolism; Z79.82 Long term (current) use of aspirin; Z79.899 Other long term (current) drug therapy; Z85.51 Personal history of malignant neoplasm of bladder; Z88.8 Allergy status to other drugs, medicaments and biological substances; Z83.3 Family history of diabetes mellitus; Z82.49 Family history of ischemic heart disease and other diseases of the circulatory system; Z83.6 Family history of other diseases of the respiratory system; Z86.711 Personal history of pulmonary embolism; Z79.01 Long term (current) use of anticoagulants
CPT/HCPCS: 10879

== ENCOUNTER 2017-07-26 11:28 | Emergency (ER) | payer OTHER ==
[~2017-07-26] VITALS: Ht 175.3 cm; Wt 127.0 kg
[~2017-07-26 11:28] MED LIST changes: +LEVAQUIN 500 M500 M2 PO; +PREDNISONE 10 M10 MG PO
[2017-07-26] MEDS ORDERED: HYDROCODONE-AP1 EAC6 PO (12:46)
[2017-07-26 13:07] VITALS: BP 122/74
[2017-08-18] MEDS ORDERED: PRAMIPEXOLE DI0.5 MG PO (08:38)
[2017-08-18] MEDS ORDERED: MOBIC7.5 MG PO (08:40)
[2017-08-18] MEDS ORDERED: PRINIVIL40 MG PO (08:40)
[2017-08-18] MEDS ORDERED: TOPROL XL50 MG PO (08:41)
[2017-08-18] MEDS ORDERED: ENOXAPARIN40 MG/0.1 SUBQ (08:45)
[2017-08-18] MEDS ORDERED: COUMADIN 1MG TAB1 M1 PO (08:46)
[2017-08-18] MEDS ORDERED: CALCIUM 600 +1 EAC1 PO (08:47)
[2017-08-18] MEDS ORDERED: VITAMIN E400 UNIT PO (08:47)
[2017-08-18] MEDS ORDERED: SUPER B COMPLE150 MG PO (08:47)
[2017-08-18] MEDS ORDERED: VITAMINC500 PO (08:47)
[2017-08-18] MEDS ORDERED: FISH OIL 1,2001 EAC3 PO (08:48)
[2017-08-18] MEDS ORDERED: PERCOCET PO (08:51)
== END 2017-07-26 13:12 | disposition home or self-care (01) ==
LOC: ER 11:28
DX: M25.462 Effusion, left knee (principal); M19.90 Unspecified osteoarthritis, unspecified site; M25.552 Pain in left hip; I10 Essential (primary) hypertension; E11.9 Type 2 diabetes mellitus without complications; E78.00 Pure hypercholesterolemia, unspecified; Z86.14 Personal history of Methicillin resistant Staphylococcus aureus infection; Z87.898 Personal history of other specified conditions; Z85.51 Personal history of malignant neoplasm of bladder; Z91.048 Other nonmedicinal substance allergy status; Z87.891 Personal history of nicotine dependence

== ENCOUNTER 2017-08-23 05:19 | Observation (INO) | payer OTHER ==
[~2017-08-23] VITALS: Ht 175.3 cm; Wt 124.7 kg
--- NOTE | ~2017-08-23 | HC ---
[facility] [place] [address] CONSULTATION Name: CHUCKIE CONTRERAS Room #: 401-I [facility] Lucius Herman#: [id number] Admission: 08/23/17 Attend Phys: Dell Pearce MD Discharge: 08/28/17 Date of : 48 Report #: [id number] THIS REPORT FOR: //name// CC: Dell Paul DATE OF SERVICE: 08/24/2017 HISTORY OF PRESENT ILLNESS: The patient is a 67-year-old male, who had a prior left foot triple arthrodesis on 07/19/2017. He said that he went home and did very well at a wheelchair level. He was advanced to weightbearing. He apparently tripped and was readmitted with a nonunion. He has now undergone left foot revision triple arthrodesis with hardware removal on 07/23/2017. He was casted and is nonweightbearing. We are seeing him in rehabilitation medicine consultation. PAST MEDICAL HISTORY: Includes hypertension, hyperlipidemia, history of MRSA, history of bladder cancer, COPD, obstructive sleep apnea, and exogenous obesity. MEDICATIONS: Please see the full medication listing. ALLERGIES: ADHESIVE. FAMILY HISTORY: COPD, diabetes, and hypertension. HABITS: A 50-year history of smoking, quit greater than a year ago. No history of alcohol abuse. SOCIAL HISTORY: Lives with his son. Ramp into the house. He has a wheelchair, knee scooter, and walker. He has been using the wheelchair and getting around in his house at a wheelchair level prior with his prior surgery. REVIEW OF SYSTEMS: Did not offer any current complaints of chest pain, shortness of breath, or abdominal discomfort. Some left leg discomfort as expected, but no other focal complaints. PHYSICAL EXAMINATION: GENERAL: He is a pleasant, overweight 67-year-old white male, in no obvious distress. Alert and oriented. VITAL SIGNS: Last recorded temperature is 98.5, pulse 91, respirations 16, and blood pressure 172/90. HEENT: Appeared to be benign. NEUROLOGIC: Cranial nerves are grossly intact. Nasal prong O2 is in place. He has functional range of motion of both upper extremities without obvious focal weakness. DTRs are trace to 1. He does have significant exogenous obesity. Functional range of motion of the right lower extremity without focal weakness. [address] [address] CONSULTATION Name: CHUCKIE CONTRERAS Room #: 401-I [facility] Lucius Herman#: [id number] Admission: 08/23/17 Attend Phys: Dell Pearce MD Discharge: 08/28/17 Date of : 49 Report #: [id number] No distal extremity edema. Tone is intact. Left lower extremity reveals the large cast in place. Toes appear neurovascularly intact. This is a short-leg cast. Functionally, he was only standby assistance with transfers and physical therapy. ASSESSMENT: A 67-year-old white male with the following problem list: 1. 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 2. Chronic obstructive pulmonary disease. 3. Diabetes mellitus. 4. Obesity. 5. History of methicillin-resistant Staphylococcus aureus. 6. Obstructive sleep apnea. 7. Hyperlipidemia. 8. Tobacco abuse. PLAN: Discussed with the patient's physical therapist. He did very well with transfers and appears to be doing well at a wheelchair level. The patient desires to return directly back to his home at a wheelchair level, nonweightbearing and this appears to be a good plan as discussed with physical therapy. Do not anticipate that the patient will need an acute inpatient rehabilitation stay and the plan would be for him to return directly home tomorrow at a wheelchair level. Thank you for asking us to assist in this patient's care. We will follow from the periphery if warranted, but again would anticipate that he will be going directly home. <ELECTRONICALLY SIGNED> By: Baldomero Bruno MD 09/26/17 1030 1026 1754 Baldomero Bruno MD /nt
--- NOTE | ~2017-08-23 | O ---
[facility] [place] [address] OPERATIVE REPORT Name: CHUCKIE CONTRERAS Room #: 401-I [facility] Batsheva#: [id number] Admission: 08/23/17 Attend Phys: Dell Pearce MD Discharge: Date of : 49 Report #: [id number] THIS REPORT FOR: //name// CC: Dell Paul DATE OF SERVICE: 08/23/2017 PREOPERATIVE DIAGNOSES: 1. Left foot triple arthrodesis nonunion. 2. Left foot retained hardware. POSTOPERATIVE DIAGNOSES: 1. Left foot triple arthrodesis nonunion. 2. Left foot retained hardware. PROCEDURE: 1. Left foot revision triple arthrodesis. 2. Left foot hardware removal. SURGEON: Dell Pearce M.D. FISHER: Rita Zurita. ANESTHESIA: General. ESTIMATED BLOOD LOSS: Minimal. DRAINS: No drains. TOURNIQUET TIME: 120 minutes. DESCRIPTION OF PROCEDURE: The patient brought to the operating room where he was placed under general anesthesia. Once under adequate general anesthesia, his left lower extremity was then prepped and draped in a sterile manner. The extremity was elevated, exsanguinated, tourniquet placed to 300 mmHg. A lateral incision on the patient's previous scar was then made. This was extended proximally and distally [address] Exposure of the lateral hindfoot was achieved elevating the extensor digitorum off of the calcaneocuboid joint and exposing the two 4.5 mm cannulated screws that were there. These were then subsequently removed with the 4.5 mm cannulated screwdriver. The patient's previous dorsal incision was then utilized as well and in between the anterior tibial tendon and the extensor hallucis tendon exposure was made of the dorsum of the talus. Once exposed, the 7.3 mm cannulated screws were removed from the talus with the cannulated screwdriver. Utilizing fluoroscopy for guidance, the three screws for the talonavicular joint were then removed as well with the [address] [place] [address] OPERATIVE REPORT Name: CHUCKIE CONTRERAS SELENA Room #: 401-I [facility] [place]#: [id number] Admission: 08/23/17 Attend Phys: Dell Pearce MD Discharge: Date of : 48 Report #: [id number] mm cannulated screwdriver. Once removed, each of the joints of the talonavicular, the calcaneocuboid and the subtalar joint were then prepared in a similar fashion as to the first surgery, i.e. any soft tissue intervening was removed from the joints. Good bleeding subchondral bone was achieved. The joints were fenestrated with K-wires and then subsequently demineralized bone matrix allograft as well as Infuse bone morphogenic protein was placed into each of the joints. Subsequent fixation across the subtalar joint with three 7.3 mm cannulated screws was then achieved. Excellent fixation and alignment was achieved as verified under fluoroscopy. Fixation across the talonavicular and the calcaneocuboid joint was then achieved as well utilizing the 4.5 mm cannulated screws. Three screws were placed across the talonavicular joint and 3 screws across the calcaneocuboid joint. Excellent fixation was achieved with good alignment. The wounds were irrigated copiously and closed with 2-0 Vicryl in the deep and subcutaneous tissues. [place] were used for the skin. The wounds were dressed with Xeroform, 4 x 4s, and a sterile soft compressive dressing with a short leg cast was placed. Tourniquet was let down at approximately 120 minutes. Toes were pink and warm with good capillary refill. There were no complications from the procedure. The patient tolerated the procedure well and went to the recovery room without incident. <ELECTRONICALLY SIGNED> By: Dell Pearce MD 08/24/17 0806 0958 1015 Dell Pearce MD /nt
[~2017-08-23 05:19] MED LIST changes: +COUMADIN 1MG TAB1 M1 PO; +ENOXAPARIN40 MG/0.1 SUBQ; +FISH OIL 1,2001 EAC3 PO; +HYDROCODONE-AP1 EAC6 PO; +PERCOCET PO; +PRAMIPEXOLE DI0.5 MG PO; +PRINIVIL40 MG PO; +TOPROL XL50 MG PO; +VITAMIN E400 UNIT PO
[2017-08-23 07:00] VITALS: BP 140/69
[2017-08-23 11:54] VITALS: BP 142/76
[2017-08-23 12:31] LABS: CALCIUM 9.3 mg/dL (8.5-10.1); CREATININE 1.3 mg/dL (0.7-1.3); POTASSIUM 4.5 mmol/L (3.5-5.1)
[2017-08-23 14:18] VITALS: BP 158/71
[2017-08-23 15:22] VITALS: BP 158/80
[2017-08-23 20:00] VITALS: BP 128/62
[2017-08-24 04:00] VITALS: BP 139/59
[2017-08-24 04:48] LABS: HEMATOCRIT 33.6 % (42.0-52.0); HEMOGLOBIN 11.1 gm/dL (14.0-18.0); MCHC 33.1 g/dL (28.0-37.0); MCV 87.6 fL (80.0-100.0); PLATELET COUNT 334 thou/uL (150-400); RBC 3.83 mil/uL (4.50-6.00); RDW 15.4 % (10.5-14.5); WBC 10.1 thou/uL (4.0-11.0)
[2017-08-24 04:57] LABS: CALCIUM 8.7 mg/dL (8.5-10.1); CREATININE 1.5 mg/dL (0.7-1.3); MAGNESIUM 1.8 mg/dL (1.8-2.4); POTASSIUM 4.1 mmol/L (3.5-5.1)
[2017-08-24 06:49] LABS: ABSOLUTE NEUTROPHILS 7.5 thou/uL (1.4-8.2)
[2017-08-24 07:07] VITALS: BP 172/90
[2017-08-24 16:19] VITALS: BP 158/37
[2017-08-24 20:00] VITALS: BP 153/68
[2017-08-25 04:00] VITALS: BP 154/62
[2017-08-25 07:08] VITALS: BP 153/61
[2017-08-25 12:40] LABS: INR 1.1; PROTIME 11.6 Seconds (9.3-11.4)
[2017-08-25 15:35] VITALS: BP 147/65
[2017-08-25 18:05] LABS: SOURCE KNEE JOINT
[2017-08-25 18:16] LABS: BF CRYSTALS No Crystals seen
[2017-08-25 20:00] VITALS: BP 117/49
[2017-08-26 04:00] VITALS: BP 130/58
[2017-08-26 09:37] VITALS: BP 99/69
[2017-08-26 16:55] VITALS: BP 127/58
[2017-08-26 19:13] VITALS: BP 130/54
[2017-08-27 04:10] VITALS: BP 138/57
[2017-08-27 09:08] VITALS: BP 123/66
[2017-08-27 16:00] VITALS: BP 131/63
[2017-08-27 20:33] VITALS: BP 128/53
[2017-08-28 05:09] VITALS: BP 149/62
[2017-08-28 07:00] VITALS: BP 132/58
[2017-08-28 15:19] VITALS: BP 132/58
[2017-08-28 15:24] VITALS: BP 132/58
== END 2017-08-28 16:45 | disposition home or self-care (01) ==
LOC: 4N 05:19 → TBA 05:19 → 4N 11:56 → PRE 13:45 → 4N 08-25 08:20 → ENTRNSPT 08-28 16:11 → 4N 08-28 16:45
PROVIDERS: Hospitalist; Nurse Practitioner; Orthopaedic Surgery Foot and Ankle Surgery; Student in an Organized Health Care Education/Training Program
DX: M96.0 Pseudarthrosis after fusion or arthrodesis (principal); T84.89XA Other specified complication of internal orthopedic prosthetic devices, implants and grafts, initial encounter; M17.11 Unilateral primary osteoarthritis, right knee; I10 Essential (primary) hypertension; E78.5 Hyperlipidemia, unspecified; J44.9 Chronic obstructive pulmonary disease, unspecified; G47.33 Obstructive sleep apnea (adult) (pediatric); E66.09 Other obesity due to excess calories; E11.51 Type 2 diabetes mellitus with diabetic peripheral angiopathy without gangrene; G25.81 Restless legs syndrome; K59.00 Constipation, unspecified; Z68.41 Body mass index [BMI] 40.0-44.9, adult; Z86.14 Personal history of Methicillin resistant Staphylococcus aureus infection; Z85.51 Personal history of malignant neoplasm of bladder; Z87.891 Personal history of nicotine dependence; Z99.89 Dependence on other enabling machines and devices; Y83.8 Other surgical procedures as the cause of abnormal reaction of the patient, or of later complication, without mention of misadventure at the time of the procedure; Y92.89 Other specified places as the place of occurrence of the external cause; Z79.4 Long term (current) use of insulin

== ENCOUNTER 2018-04-22 09:36 | Emergency (ER) | payer OTHER ==
[~2018-04-22] VITALS: Ht 175.3 cm; Wt 131.5 kg
[2018-04-22] MEDS ORDERED: NORCO 5-325 TA1 EACH PO (11:20)
[2018-04-22 12:15] VITALS: BP 167/91
== END 2018-04-22 15:25 | disposition home or self-care (01) ==
LOC: ER 09:36
DX: M25.532 Pain in left wrist (principal); E11.9 Type 2 diabetes mellitus without complications; I10 Essential (primary) hypertension; E78.00 Pure hypercholesterolemia, unspecified; K21.9 Gastro-esophageal reflux disease without esophagitis; M19.90 Unspecified osteoarthritis, unspecified site; Z85.51 Personal history of malignant neoplasm of bladder; J44.9 Chronic obstructive pulmonary disease, unspecified; G47.30 Sleep apnea, unspecified; Z87.891 Personal history of nicotine dependence

== ENCOUNTER 2018-04-25 08:52 | Emergency (ER) | payer OTHER ==
[~2018-04-25] VITALS: Ht 175.3 cm; Wt 131.5 kg
[2018-04-25 09:38] LABS: ABSOLUTE NEUTROPHILS 5.6 thou/uL (1.4-8.2); BASOPHILS 0.3 % (0.0-2.0); EOSINOPHILS 2.1 % (0.0-3.0); HEMATOCRIT 33.3 % (42.0-52.0); LYMPHOCYTES 14.5 % (24.0-44.0); MCHC 32.9 g/dL (28.0-37.0); MCV 84.9 fL (80.0-100.0); MONOCYTES 11.8 % (1.0-8.0); PLATELET COUNT 282 thou/uL (150-400); POLYS 71.3 % (36.0-66.0); RBC 3.92 mil/uL (4.50-6.00); RDW 15.4 % (10.5-14.5); WBC 7.8 thou/uL (4.0-11.0)
[2018-04-25 09:45] LABS: CALCIUM 9.1 mg/dL (8.5-10.1); CREATININE 2.2 mg/dL (0.7-1.3); POTASSIUM 4.4 mmol/L (3.5-5.1)
[2018-04-25 09:47] LABS: INR 2.9; PROTIME 29.2 Seconds (9.3-11.4)
[2018-04-25] MEDS ORDERED: KEFLEX500 M1 PO (11:01)
[2018-04-25 11:04] VITALS: BP 118/73
== END 2018-04-25 11:00 | disposition home or self-care (01) ==
LOC: ER 08:52
PROVIDERS: Student in an Organized Health Care Education/Training Program
DX: L03.114 Cellulitis of left upper limb (principal); R50.9 Fever, unspecified; J02.9 Acute pharyngitis, unspecified; E11.9 Type 2 diabetes mellitus without complications; I10 Essential (primary) hypertension; E78.00 Pure hypercholesterolemia, unspecified; K21.9 Gastro-esophageal reflux disease without esophagitis; M19.90 Unspecified osteoarthritis, unspecified site; I73.9 Peripheral vascular disease, unspecified; G25.81 Restless legs syndrome; J44.9 Chronic obstructive pulmonary disease, unspecified; G47.30 Sleep apnea, unspecified; Z87.891 Personal history of nicotine dependence; Z86.14 Personal history of Methicillin resistant Staphylococcus aureus infection; Z85.51 Personal history of malignant neoplasm of bladder; Z86.718 Personal history of other venous thrombosis and embolism; Z88.8 Allergy status to other drugs, medicaments and biological substances

== ENCOUNTER → 2018-05-10 | Outpatient (CLI) | payer OTHER ==
[~2018-05-10] MED LIST changes: +KEFLEX500 M1 PO
== END ==
LOC: MRI 09:18
DX: I67.82 Cerebral ischemia (principal); G45.9 Transient cerebral ischemic attack, unspecified

== ENCOUNTER → 2018-05-16 | Outpatient (CLI) | payer OTHER | LOC: MRI 09:28 | DX: J44.9 Chronic obstructive pulmonary disease, unspecified (principal); M50.33 Other cervical disc degeneration, cervicothoracic region; M50.223 Other cervical disc displacement at C6-C7 level; M12.88 Other specific arthropathies, not elsewhere classified, other specified site; M48.02 Spinal stenosis, cervical region; Z87.891 Personal history of nicotine dependence ==

== ENCOUNTER 2018-06-21 10:53 | Emergency (ER) | payer OTHER ==
[~2018-06-21] VITALS: Ht 175.3 cm; Wt 127.0 kg
[2018-06-21 11:52] LABS: HEMATOCRIT 37.9 % (42.0-52.0); HEMOGLOBIN 12.1 gm/dL (14.0-18.0); MCH 26.2 pg (26.0-34.0); MCHC 31.9 g/dL (28.0-37.0); PLATELET COUNT 280 thou/uL (150-400); RBC 4.62 mil/uL (4.50-6.00); WBC 10.1 thou/uL (4.0-11.0)
[2018-06-21 11:59] LABS: CREATININE 1.4 mg/dL (0.7-1.3); POTASSIUM 4.1 mmol/L (3.5-5.1)
[2018-06-21 12:03] LABS: URIC ACID* 5.7 mg/dL (2.6-7.2)
[2018-06-21 12:07] LABS: PROTIME 68.5 Seconds (9.3-11.4)
[2018-06-21 12:11] LABS: INR 6.7
[2018-06-21 12:24] LABS: ANISOCYTOSIS SLIGHT
[2018-06-21] MEDS ORDERED: COLCHICINE0.6 MG PO (14:28)
[2018-06-21] MEDS ORDERED: PREDNISONE 20 M20 MG PO (14:28)
[2018-06-21] MEDS ORDERED: NORCO 5-325 TA1 EACH PO (14:28)
[2018-06-21 15:00] VITALS: BP 130/64
== END 2018-06-21 15:15 | disposition home or self-care (01) ==
LOC: ER 10:53
PROVIDERS: Physician Assistant
DX: M10.041 Idiopathic gout, right hand (principal); R79.1 Abnormal coagulation profile; E11.9 Type 2 diabetes mellitus without complications; I10 Essential (primary) hypertension; E78.00 Pure hypercholesterolemia, unspecified; K21.9 Gastro-esophageal reflux disease without esophagitis; M19.90 Unspecified osteoarthritis, unspecified site; I73.9 Peripheral vascular disease, unspecified; G25.81 Restless legs syndrome; J44.9 Chronic obstructive pulmonary disease, unspecified; G47.30 Sleep apnea, unspecified; Z87.891 Personal history of nicotine dependence; Z98.890 Other specified postprocedural states; Z91.048 Other nonmedicinal substance allergy status; Z85.51 Personal history of malignant neoplasm of bladder

== ENCOUNTER 2018-07-18 05:30 | Inpatient (IN) | payer OTHER ==
[2018-07-04 11:36] LABS: HEMOGLOBIN 12.2 gm/dL (14.0-18.0); MCH 26.4 pg (26.0-34.0); MCV 82.4 fL (80.0-100.0); RBC 4.61 mil/uL (4.50-6.00); RDW 16.2 % (10.5-14.5); WBC 9.6 thou/uL (4.0-11.0)
[2018-07-04 11:51] LABS: ALBUMIN 3.3 g/dL (3.4-5.0); CALCIUM 8.8 mg/dL (8.5-10.1); CREATININE 1.4 mg/dL (0.7-1.3); POTASSIUM 4.9 mmol/L (3.5-5.1)
[2018-07-04 11:53] LABS: INR 4.1; PROTIME 42.2 Seconds (9.3-11.4)
[2018-07-04 12:24] LABS: URINE CLARITY CLEAR; URINE COLOR YELLOW; URINE PROTEIN (DIPSTICK) NEGATIVE (Negative)
[2018-07-04 12:25] LABS: URINE BILIRUBIN NEGATIVE (Negative); URINE BLOOD NEGATIVE (Negative); URINE GLUCOSE-RANDOM* NEGATIVE (Negative); URINE KETONES NEGATIVE (Negative); URINE LEUKOCYTES-REFLEX NEGATIVE (Negative); URINE NITRITE-REFLEX NEGATIVE (Negative); URINE UROBILINOGEN 0.2 E.U./dl (0.2-1.0)
[2018-07-04 23:09] LABS: GLYCOHEMOGLOBIN (HGB A1C) 7.2 % (4.8-5.6)
[~2018-07-18] VITALS: Ht 170.2 cm; Wt 128.8 kg
[~2018-07-18 05:30] MED LIST changes: +COLCHICINE0.6 MG PO; +PREDNISONE 20 M20 MG PO; +SUPER B COMPLE1 EAC2 PO
[2018-07-18 11:28] VITALS: BP 105/55
[2018-07-18 11:38] LABS: PROTIME 10.7 Seconds (9.3-11.4)
[2018-07-18 16:58] VITALS: BP 141/65
--- NOTE | 2018-07-18 18:15 | NUR ---
ASSESMENT COMPLETED. VSS. A/O. DENIES PAIN. NO NOTED SOA. NO NV. O2 IN PLACE. LEFT KNEE DRESSING CDI. ICE PACK IN PLACE. WILL CONT. TO MONITOR.
--- NOTE | 2018-07-18 19:04 | O ---
[facility] [place] [address] OPERATIVE REPORT Name: CHUCKIE CONTRERAS Room #: 428-P [facility] IN M.R.#: [id number] Admission: 07/18/18 Attend Phys: Todd Mai MD Discharge: Date of : 49 Report #: [id number] THIS REPORT FOR: //name// CC: Todd Paul DATE OF SERVICE: 07/18/2018 PREOPERATIVE DIAGNOSIS: Right knee osteoarthritis. POSTOPERATIVE DIAGNOSIS: Right knee osteoarthritis. PROCEDURE: Right total knee arthroplasty with Navio robotic research lab assistant. SURGEON: Todd Mai MD. AXMINSTER RUG SETTER: Cass Mayfield PA-C ANESTHESIA: LMA with an adductor canal block. INDICATION FOR AXMINSTER RUG SETTER: Throughout the case, extensive retraction and manipulation of knee was required. This was afforded to me by my research lab assistant. IMPLANTS: Slater and Nephew size 6 Legion cobalt chrome posterior stabilized femur, size 6 tibia, size 9 polyethylene and size 35 patella. TOURNIQUET TIME: 72 minutes. ESTIMATED BLOOD LOSS: 25 mL. COMPLICATIONS: None. SPECIMENS: None. CONDITION UPON LEAVING THE OPERATING ROOM: Stable. INDICATIONS FOR PROCEDURE: The patient is a 68-year-old gentleman with severe right knee osteoarthritis. He had failed conservative measures for this and after discussion with him, he elected for right total knee arthroplasty. DESCRIPTION OF PROCEDURE: Risks, benefits, alternatives, complications were discussed in detail with the patient including but not limited to risk of anesthesia, risk of damage to nerves, arteries, blood vessels, risk for infection, bleeding, risk for continued knee pain and need for reoperation. Informed consent was obtained from the patient. Right knee was appropriately marked in the preoperative holding area. IV Ancef was given for preoperative [facility] [address] [place] [address] OPERATIVE REPORT Name: CHUCKIE CONTRERAS Room #: 428-P [facility] IN M.R.#: [id number] Admission: 07/18/18 Attend Phys: Todd Mai MD Discharge: Date of : 49 Report #: [id number]. Adductor canal block was placed by anesthesia. He was brought to the operating room and placed in supine position on the OR table. LMA anesthesia was induced without complication. Tourniquet was placed on the right thigh. Right lower extremity was prepped and draped in normal sterile fashion. Timeout was performed properly identifying the patient and procedure as well as the instrumentation and implants. All in the operating room were in agreement. Right lower extremity was exsanguinated, tourniquet was inflated. Tourniquet time was 72 minutes. Standard midline approach to knee was made with 10 blade through the skin. Dissection was taken down sharply to the fascia and deep flaps were developed medially and laterally. Fresh 10 blade was used to make a medial parapatellar arthrotomy and the knee was inspected. There was severe tricompartmental osteoarthritic change. Reference pins were placed in the femur and the tibia and the knee was visually mapped using the [employer]ential [employer] robotic system. Intraoperative plan was made. We sized the size 6 femur and a size 6 tibia. After the intraoperative plan, the distal femoral cut was made with the Navio robotic bur. The 4-in-1 cutting block for a size 6 femur was then placed on the femur and the anterior, posterior and chamfer cuts were made. Attention was turned to the tibia. The menisci removed with Bovie cautery. The tibial resection was then made. The tibial resection guide was pinned in place using Essential Testing robotic system for placement of the resection guide. After this, flexion and extension gaps were checked and found to be tight medially in flexion and extension. Medial osteophytes were removed and a limited medial release was performed using the pie crust technique. This balanced the knee well. The tibia was sized, found to be a size 6. A size 6 tibial trial was pinned and punched. A size 6 femoral trial was placed, box cut was made, post was placed and this was trialed with size 9 polyethylene. Knee was taken through range of motion, found to be stable, found to have good balance in flexion and extension with a mm of laxity both medially and laterally throughout range of motion of both manually as well as digitally. A 9 mm was taken off the posterior surface of the patella and a size 35 patellar trial was placed. Knee was taken through range of motion, found to have good patellar tracking. After this, trial components were removed. Bony ends were thoroughly irrigated with normal saline. Final size 6 tibia, size 6 Legion cobalt chrome posterior stabilized femur and a size 35 patella were cemented in place using standard cementation techniques. While the cement cured, a periarticular injection consisting of morphine, ropivacaine, epinephrine and Toradol was placed in the knee joint capsule. After the cement cured, the tourniquet was deflated. Hemostasis was obtained with Bovie cautery. A final size 9 polyethylene was placed. A gram of vancomycin was placed deep in the joint. The fascia was closed with 0 Vicryl, skin was closed with 2-0 Vicryl, 3-0 Monocryl. Dermabond and a KRISTA dressing was applied. The patient tolerated this procedure well and went to recovery room under care of anesthesia postoperatively. <ELECTRONICALLY SIGNED> By: Todd Mai MD 07/18/18 1904 1449 1519 Todd Mai MD /rocio
[2018-07-18 19:56] VITALS: BP 130/65
--- NOTE | 2018-07-19 02:46 | NUR ---
PT C/O PAIN ON HIS R KNEE,MANAGED WITH SCHEDULED PAIN MED.PT ON 2L/NC.PT USES CPAP AT HS.URINAL AT BEDSIDE.PT ABLE TO MAKE HIS NEEDS KNOWN.CALL LIGHT WITHIN REACH.
[2018-07-19 03:30] VITALS: BP 131/55
[2018-07-19 06:12] LABS: HEMOGLOBIN 10.3 gm/dL (14.0-18.0); MCH 26.3 pg (26.0-34.0); MCHC 31.3 g/dL (28.0-37.0); PLATELET COUNT 257 thou/uL (150-400); RBC 3.93 mil/uL (4.50-6.00); RDW 17.3 % (10.5-14.5); WBC 6.9 thou/uL (4.0-11.0)
[2018-07-19 06:32] LABS: CALCIUM 8.3 mg/dL (8.5-10.1); CREATININE 1.9 mg/dL (0.7-1.3); MAGNESIUM 1.5 mg/dL (1.8-2.4); POTASSIUM 4.1 mmol/L (3.5-5.1)
[2018-07-19 08:07] VITALS: BP 127/55
[2018-07-19 08:30] LABS: INR 1.1
[2018-07-19 08:37] LABS: ABSOLUTE NEUTROPHILS 5.1 thou/uL (1.4-8.2); PLATELET ESTIMATE NORMAL
[2018-07-19 12:25] VITALS: BP 137/53
--- NOTE | 2018-07-19 12:26 | NUR ---
PT ADMITTED RELATED TO RIGHT TKR. CM REVIEWED CHART AND SPOKE WITH CARE TEAM. CM MET WITH PT AT BEDSIDE THIS DAY. PT IS A&O X4. CM ROLE INTRODUCED. PT INDICATED HE LIVES IN A HOUSE WITH HIS SON WITH A RAMP TO ENTER AND NO STEPS THAT HE USES INSIDE. PT INDICATED HE HAS A FWW, CANE, WHEELCHAIR, AND CRUTCHES FOR HOME USE. PT INDICATED HE HAS A CPAP THROUGH [facility]. PT INDICATED HE HAS DONE OP PT AT [facility] IN THE PAST AND THAT HE ANTICIPATES USING THEM AGAIN UPON DC. CM TO FOLLOW INDICATED WITH DC PLANNING.
--- NOTE | 2018-07-19 16:09 | NUR ---
ASSUMED CARE AT 0700, SHIFT ASSESSMENT DONE, MEDS GIVEN, VSS. REPORTED PAIN, PRN PAIN MEDS GIVEN PER eMAR. KRISTA DRESSING RIGHT KNEE C/D/I. WORKED WITH PHYSICAL THERAPHY. ORDERS RECEIVED TO TRANSFER PATIENT DOWN TO [facility]ENIOR SUITES ROOM 224. REPORT GIVEN TO NURSE CAZARES. WILL CONTINUE TO ASSESS AND ASSIST WITH ADLs NEEDED.
--- NOTE | 2018-07-19 17:37 | NUR ---
RECEIVED PT FROM . PT VERY SHAKY AND HEART RATE 132, REGULAR. ALL OTHER VITALS ARE STABLE. PT STATES THE SHAKINESS IS NEW THIS HOSPITAL VISIT. DENIES DIZZINESS/LIGHTHEADEDNESS. REPORTS PAIN IN KNEE 03/12. PAIN MEDICATION GIVEN. WILL CONTINUE TO MONITOR PT AT THIS TIME.
--- NOTE | 2018-07-19 18:10 | NUR ---
PT CONTINUES TO BE SHAKY. HEART RATE 134 MANUAL RADIAL. PHYSICIAN PAGED.
[2018-07-19 18:11] VITALS: BP 152/74
[2018-07-19 20:57] VITALS: BP 152/74
[2018-07-19 21:13] VITALS: BP 129/67
--- NOTE | 2018-07-20 00:29 | NUR ---
Assumed pt care at 1915,A/OX4. Pt's HR at beginning of shift in the 130's and Metoprolol 5mg IV already ordered,medication administered and HR 111,BP 129/57 pain at 11/09. Medicated with pain med per EMAR with relief reported. KRISTA dsg on Right knee C/D/I,extremity swollen and warm to touch,ice pack applied and elevated on a pillow.Pt voiding yellow urine per urinal. Resting quietly eyes closed no distress noted CPAP in place. Will continue to monitor pt.
[2018-07-20 06:53] LABS: HEMATOCRIT 29.8 % (42.0-52.0); HEMOGLOBIN 9.8 gm/dL (14.0-18.0); MCH 27.1 pg (26.0-34.0); MCHC 32.8 g/dL (28.0-37.0); MCV 82.8 fL (80.0-100.0); PLATELET COUNT 210 thou/uL (150-400); WBC 5.6 thou/uL (4.0-11.0)
[2018-07-20 07:02] LABS: CALCIUM 8.2 mg/dL (8.5-10.1); CREATININE 1.9 mg/dL (0.7-1.3); INR 1.3; POTASSIUM 4.5 mmol/L (3.5-5.1); PROTIME 13.8 Seconds (9.3-11.4)
[2018-07-20 08:20] VITALS: BP 136/64
[2018-07-20 08:46] LABS: ABSOLUTE NEUTROPHILS 3.3 thou/uL (1.4-8.2); ANISOCYTOSIS 1+; METAMYELOCYTES 1 %
--- NOTE | 2018-07-20 08:50 | EKG ---
[address] [place] [address] ELECTROCARDIOGRAM REPORT Name: CHUCKIE CONTRERAS Room #: 220-P ADM IN M.R.#: [id number] Admission: 07/18/18 Attend Phys: Todd Mai MD Discharge: Date of : 48 Report #: [id number] THIS REPORT FOR: //name// [facility] Test Date: 2018-07-19 Test Time: 18:41:42 Pat Name: CHUCKIE CONTRERAS Department: Room: 220 P Gender: M Machine Stuffer Automatic: Nicolás JORDAN : 1950 Requested By: Walt Wong Order Number: [id number] MD: Mario Alberto Diaz Measurements Intervals Hay Rate: 121 P: 62 NJ: 153 QRS: -2 QRSD: 99 T: 22 QT: 316 QTc: 449 Interpretive Statements Sinus tachycardia Low voltage, precordial leads Compared to ECG 06/23/2017 01:56:00 No significant changes Electronically Signed On 07-20-2018 8:50:27 LINER INSTALLER by Mario Alberto Diaz [email or web address] <ELECTRONICALLY SIGNED> By: Mario Alberto Diaz MD, [facility] 07/20/18 0850 40 40 Mario Alberto Diaz MD, [facility] /EPI
--- NOTE | 2018-07-20 12:34 | NUR ---
SW reviewed chart and spoke with nursing and attending physician. [facility] from and is progressing towards goals for discharge. Discharge home is anticipated over the weekend. Pt will do outpatient therapy at [facility]. HERLINDA is following to assist as needed with discharge planning.
--- NOTE | 2018-07-20 16:37 | NUR ---
ASSUMED CARE OF PATIENT AT 0715, PATIENT ALERT AND ORIENTED X 4. PATIENT UP WITH ASSIST X 1 WITH WALKER. PATIENT C/O PAIN WITH RIGHT KNEE, RIGHT TKR POST OP DAY 2, PATIENT HAS KRISTA DRESSING IN PLACE, WITH KNEE HIGH REYNA HOSE BILATERAL IN PLACE, PATIENT REFUSED SCD'S. PATIENT HAS RIGHT HAND IV IN PLACE, FLUSHED WITH NS AND REMAINS PATENT. PATIENT HAS WORKED WITH PT X 2 TODAY. PATIENT HAS HAD OXYCODONE 1 TABLET X 2 TODAY, SO FAR. PATIENT HAS SLIGHTLY ELEVATED HEART RATE 110, METOPROLOL ORDERED LAST NIGHT DUE TO ELEVATED HEART RATE, RECEIVED 50 MG THIS AM. BLOOD SUGAR MONITORING ORDERED. PATIENT HAS O2 AT 2 LITERS/NC IN PLACE, DUE TO SATS AT 90% AND SATS DROP WITH ACTIVITY PER PHYSICAL THERAPY. WILL CONTINUE TO MONITOR.
[2018-07-20 17:34] VITALS: BP 158/114
[2018-07-20 19:00] VITALS: BP 102/55
--- NOTE | 2018-07-21 03:30 | NUR ---
PATIENT ALERT AND ORIENTED X4. COOPERATIVE AND PLEASANT. CPAP AT NOC. 02SATS DROPPED DURING THE NIGHT, RT REFIT CPAP AND 02SAT WAS 92-94% WITH HR OF 75-78. BEGAN SHIFT WITH TEMP OF 100.0, DOWN TO 98.5. VOIDING PER URINAL. DENIES PAIN. BS MONITORED PER ORDER. RESTING QUIETLY AT TIME OF NOTE. WILL MONITOR.
[2018-07-21 07:55] LABS: HEMATOCRIT 29.7 % (42.0-52.0); HEMOGLOBIN 9.7 gm/dL (14.0-18.0); MCHC 32.6 g/dL (28.0-37.0); MCV 82.9 fL (80.0-100.0); RBC 3.58 mil/uL (4.50-6.00); RDW 17.3 % (10.5-14.5); WBC 6.8 thou/uL (4.0-11.0)
[2018-07-21 08:00] VITALS: BP 126/57
--- NOTE | 2018-07-21 15:09 | NUR ---
AAOX4. CALM, COOPERATIVE. SURGICAL WOUND RT KNEECAP WELL APPROXIMATED, KRISTA IN PLACE, BUT LOCALIZED ERYTHEMA PERSISTS. PREMEDICATED TWICE TO WORK WITH PT. BECOMES SOB WITH THAT EXERTION. FREQUENT CHECKS; WILL CONTINUE TO MONITOR.
[2018-07-21 19:20] VITALS: BP 105/45
--- NOTE | 2018-07-22 03:09 | NUR ---
PATIENT ALERT AND ORIENTED X4. VOIDING PER URINAL. NO BM AT TIME OF NOTE. PATIENT WAS MEDICATED FOR A HEADACHE BEFORE THIS NURSE STARTED THIS SHIFT AND HAS REPORTED THAT HIS HEADACHE HAS GONE. BS MONITORED PER ORDER. 4LNC. CPAP AT NIGHT. NO TEMP (98.4) 93% 02SAT 77HR. RESTING QUIETLY W/O C/O PAIN. PATIENT ACCIDENTALLY PULLED OUT IV IN HIS RIGHT HAND. NO NEW IV STARTED. WILL MONITOR.
[2018-07-22 06:41] LABS: HEMATOCRIT 28.5 % (42.0-52.0); HEMOGLOBIN 9.3 gm/dL (14.0-18.0); MCHC 32.5 g/dL (28.0-37.0); MCV 83.2 fL (80.0-100.0); PLATELET COUNT 215 thou/uL (150-400); RBC 3.43 mil/uL (4.50-6.00); RDW 17.3 % (10.5-14.5)
[2018-07-22 06:52] LABS: INR 1.5; PROTIME 15.4 Seconds (9.3-11.4)
[2018-07-22 08:17] LABS: ABSOLUTE NEUTROPHILS 4.1 thou/uL (1.4-8.2)
[2018-07-22 08:18] LABS: ANISOCYTOSIS 1+; BURR CELLS OCCASIONAL; OVALOCYTES OCCASIONAL
--- NOTE | 2018-07-22 16:17 | NUR ---
ASSUMED CARE AT 0700, SHIFT ASSESSMENT DONE, MEDS GIVEN, VSS. REPORTED PAIN, PRN PAIN MEDS GIVEN. WALKED WITH PHYSICAL THERAPHY. STILL REMAINS SHORT OF AIR AND HAS A HARD TIME WITH LONGER DISTANCE WALK. HAD A BM TODAY THIS AFTERNOON. WILL CONTINUE TO ASSESS AND ASSIST WITH ADLs NEEDED.
--- NOTE | 2018-07-23 04:29 | NUR ---
PATIENT ALERT AND ORIENTED X4. C/O PAIN TO RIGHT KNEE AND MEDICATED WITH GOOD RESULTS. CPAP WORN AT NIGHT AND THEN SWITCHED OVER TO NC. TEMP AT SHIFT CHANGE WAS 99.3 DOWN TO 98.4 AFTER TYLENOL. DRESSING TO RIGHT KNEE DRY AND INTACT - PATIENT LIKES TO USE ICE PACK FOR COMFORT. BS MONITORED PER ORDER. VOIDING KIP URINE PER URINAL. WILL MONITOR.
[2018-07-23 06:54] LABS: INR 1.8; PROTIME 18.3 Seconds (9.3-11.4)
[2018-07-23 12:41] VITALS: BP 120/59
--- NOTE | 2018-07-23 12:42 | NUR ---
DISCHARGE NOTE: HERLINDA reviewed chart and spoke with nursing and attending physician. Pt is medically stable for discharge home today. Pt will need roller walker and possible home O@. Rest/exercise oximetry is pending. HERLINDA met with pt at bedside to discuss discharge plan. Pt is aware and agreeable with plan. Pt states he will do outpatient therapy at [facility]. Pt has his cpap through [facility] and would prefer to use [facility] for home O2 if needed. Pt's new roller walker at bedside, which was provided by [facility]. SW gave script for walker to [facility] liaison. Pt's family will provide transportation home. Awaiting results of rest/ex oximetry for possible need for home O2. Contact info for [facility] and [facility] placed in pt's discharge summary. HERLINDA is following to finalize discharge.
--- NOTE | 2018-07-23 14:47 | NUR ---
PATIENT NEEDS HOME OXYGEN, DP SENT REFERRAL TO [facility] [place]. DP WILL CALL [facility] [place] TO ENSURE DELIVERY OF FAX. PATIENT WILL NEED PORTABLE OXYGEN TANK BROUGHT TO PATIENT'S ROOM (BY [facility]).
[2018-07-23] MEDS ORDERED: NEURONTIN 300300 M1 PO (14:56)
[2018-07-23] MEDS ORDERED: ENOXAPARIN40 MG/0.1 SUBQ (14:56)
[2018-07-23] MEDS ORDERED: HOME OXYGEN (15:17)
== END 2018-07-23 17:56 | disposition home or self-care (01) | DRG 469 ==
LOC: 4E 05:30 → TBA 05:30 → PRE 05:37 → 4E 16:36 → ENTRNSPT 07-19 16:18 → SICU 07-19 17:19
PROVIDERS: Hospitalist; Nurse Practitioner; Nurse Practitioner Family; ADMIT Orthopaedic Surgery
DX: M17.11 Unilateral primary osteoarthritis, right knee (principal); J96.01 Acute respiratory failure with hypoxia; E43 Unspecified severe protein-calorie malnutrition; I10 Essential (primary) hypertension; K59.00 Constipation, unspecified; G47.33 Obstructive sleep apnea (adult) (pediatric); E11.51 Type 2 diabetes mellitus with diabetic peripheral angiopathy without gangrene; J44.9 Chronic obstructive pulmonary disease, unspecified; R00.0 Tachycardia, unspecified; E78.5 Hyperlipidemia, unspecified; G25.81 Restless legs syndrome; Z79.82 Long term (current) use of aspirin; Z79.899 Other long term (current) drug therapy; Z85.51 Personal history of malignant neoplasm of bladder; Z86.711 Personal history of pulmonary embolism; Z83.3 Family history of diabetes mellitus; Z83.6 Family history of other diseases of the respiratory system; Z82.49 Family history of ischemic heart disease and other diseases of the circulatory system; Z87.891 Personal history of nicotine dependence
CPT/HCPCS: 10783; 15002; 50010; 50101; 50415; 50954; 51130; 51225; 53000; 53078; 53364; 54118; 56527; 56528; 57095; 57103; 57109; 57110; 57113; 57127; 62110; 62900; 70005

== ENCOUNTER → 2018-09-06 | Outpatient (CLI) | payer OTHER ==
[~2018-09-06] MED LIST changes: +HOME OXYGEN; +NEURONTIN 300300 M1 PO
== END ==
LOC: RAD 09:17
DX: R06.00 Dyspnea, unspecified (principal); E11.9 Type 2 diabetes mellitus without complications; I10 Essential (primary) hypertension; E78.5 Hyperlipidemia, unspecified; M19.90 Unspecified osteoarthritis, unspecified site; J44.9 Chronic obstructive pulmonary disease, unspecified

== ENCOUNTER 2019-01-28 05:27 | Inpatient (IN) | payer OTHER ==
[2019-01-21 08:25] LABS: HEMATOCRIT 37.1 % (42.0-52.0); MCH 25.8 pg (26.0-34.0); MCHC 32.3 g/dL (28.0-37.0); MCV 79.9 fL (80.0-100.0); RBC 4.65 mil/uL (4.50-6.00); RDW 17.5 % (10.5-14.5); WBC 6.9 thou/uL (4.0-11.0)
[2019-01-21 08:37] LABS: INR 1.4; PROTIME 14.8 Seconds (9.3-11.4)
[2019-01-21 08:38] LABS: CALCIUM 9.1 mg/dL (8.5-10.1); CREATININE 1.7 mg/dL (0.7-1.3); POTASSIUM 4.5 mmol/L (3.5-5.1)
[2019-01-21 09:16] LABS: URINE BILIRUBIN NEGATIVE (Negative); URINE BLOOD NEGATIVE (Negative); URINE CLARITY CLEAR; URINE COLOR YELLOW; URINE GLUCOSE-RANDOM* NEGATIVE (Negative); URINE KETONES NEGATIVE (Negative); URINE LEUKOCYTES-REFLEX NEGATIVE (Negative); URINE NITRITE-REFLEX NEGATIVE (Negative); URINE PROTEIN (DIPSTICK) 1+ (Negative); URINE UROBILINOGEN 0.2 E.U./dl (0.2-1.0)
[2019-01-21 09:27] LABS: BACTERIA-REFLEX 1-9 Few /HPF (None Seen); CRYSTALS None Seen /LPF (None Seen); HYALINE CASTS 0-3 Few /LPF (None Seen); SQUAMOUS 4-10 Moderate /LPF (0-3); URINE RBC 0-2 Rare /HPF (0-2); URINE WBC-REFLEX 0-5 Rare /HPF (0-5)
[~2019-01-28] VITALS: Ht 175.3 cm; Wt 137.2 kg
[2019-01-28] VITALS (8 sets, daily range): BP systolic 131–161; BP diastolic 53–77
--- NOTE | ~2019-01-28 | O ---
[facility] [place] [address] OPERATIVE REPORT Name: CHUCKIE CONTRERAS Room #: 150-5 ADM IN M.R.#: [id number] Admission: 01/28/19 ������������������ Attend Phys: Todd Mai MD Discharge: ������������������ Date of : 48 Report #: [id number] THIS REPORT FOR: //name// CC: Todd Paul DATE OF SERVICE: 01/28/2019 PREOPERATIVE DIAGNOSIS: Left knee osteoarthritis. POSTOPERATIVE DIAGNOSIS: Left knee osteoarthritis. PROCEDURE: Left total knee arthroplasty using Navio robotic assistance. SURGEON: Todd Mai MD. BROWNFIELD REDEVELOPMENT SPECIALIST: Marlys Hamm. ANESTHESIA: LMA with an adductor canal block. IMPLANTS: [employer] size 5 Legion cobalt chrome posterior stabilized femur, a size 6 tibia, size 11 polyethylene and size 35 patella. TOURNIQUET TIME: 66 minutes. ESTIMATED BLOOD LOSS: 25 mL. COMPLICATIONS: None. SPECIMENS: None. CONDITION UPON LEAVING THE OPERATING ROOM: Stable. INDICATIONS FOR PROCEDURE: The patient is a 68-year-old gentleman with severe left knee osteoarthritis. He had failed conservative measures for this and after discussion with him, he elected for left total knee arthroplasty. DESCRIPTION OF PROCEDURE: Risks, benefits, alternatives and complications were discussed in detail with the patient including but not limited to risk of anesthesia, risk of damage to nerves, arteries, blood vessels, risk for infection, bleeding, risk for continued knee pain and need for reoperation. Informed consent was obtained from the patient. Left knee was appropriately marked in the preoperative holding area. IV Ancef was given for preoperative antibiotics. Adductor canal block was placed by anesthesia. He was brought to the operating room and placed in supine position on operating room table. LMA anesthesia was induced without complication. Tourniquet was placed on the left [address] [address] OPERATIVE REPORT Name: CHUCKIE CONTRERAS Room #: 150-5 [facility] IN M.R.#: [id number] Admission: 01/28/19 ������������������ Attend Phys: Todd Mai MD Discharge: ������������������ Date of : 48 Report #: [id number] thigh. Left lower extremity was prepped and draped in normal sterile fashion. Timeout was performed properly identifying the patient and procedure as well as the instrumentation and implants. All in the operating room were in agreement. Left lower extremity was exsanguinated, tourniquet was inflated. Tourniquet time was 66 minutes. Standard midline approach to knee was made with 10 blade through the skin. Dissection was taken down sharply to the fascia. Deep flaps were developed medially and laterally. A fresh 10-blade was used to make a medial parapatellar arthrotomy and the knee was inspected. There were severe osteoarthritic changes in the knee. ACL and PCL were removed sharply. Reference pins were placed in the femur and the tibia and the knee was digitally mapped using the [employer] robotic system. We sized a size 5 femur, size 5 tibia, and an 11 spacer. After acceptance of the intraoperative plan, the distal femoral cut was made with a Navio bur. The size 5 cutting block was then placed and the anterior, posterior and chamfer cuts were made. Attention was then turned to the tibia. The menisci removed with Bovie cautery. Tibial resection guide was pinned in place using the Navio system for placement and the tibial resection was made. Flexion and extension gaps were checked and found to have good balance in flexion and extension. Tibia was then sized, found to be a size 6. A size 6 tibial trial and was placed, pinned and punched and a size 5 femoral trial was placed and the box cut was made. This was then trialed with a size 11 polyethylene. Knee was taken through range of motion, found to be stable, found to have a millimeter to millimeter and a half laxity medially and laterally throughout range of motion both digitally as well as manually. A 9 mm was taken off the posterior surface of the patella and a size 35 patellar trial button was placed. Knee was taken through range of motion, found to be stable, found to have good patellar tracking. After this, trial components were removed. Bony ends were thoroughly irrigated with normal saline. A final size 6 tibia, size 5 Legion cobalt chrome posterior stabilized femur and a size 35 patella were cemented in place using standard cementation techniques. While the cement cured, a periarticular injection consisting of morphine, ropivacaine, epinephrine and Toradol was placed around the knee joint capsule. After the cement cured, the tourniquet was deflated. Hemostasis was obtained with Bovie cautery. A final size 11 polyethylene was placed. A gram of vancomycin was placed deep in the joint. The fascia was closed with 0 Vicryl, skin was closed with 2-0 Vicryl and 3-0 Monocryl. Dermabond and a KRISTA dressing was applied. The patient tolerated this procedure well and went to the recovery room under care of Anesthesia postoperatively. ��������������������������������������������� ���������������������������������������� By: ��������������������������������������������� 1655 [id number] Todd Mai MD /rocio
[~2019-01-28 05:27] MED LIST changes: +ACETAMINOPHEN325 M1 PO; +AUGMENTIN 875-1 EACH PO; +METOPROLOL SUCC50 MG PO; +NORCO 5-325 TA1 EAC1 PO
[2019-01-28 11:47] LABS: PROTIME 10.1 Seconds (9.3-11.4)
--- NOTE | 2019-01-28 19:34 | NUR ---
PT ARRIVED TO ROOM FROM PACU S/P LEFT TOTAL KNEE AT 18:00. POSTOP VITALS IN PROGRESS, VSS ON 3 L NC. PT DOES NOT NORMALLY WEAR O2 AT HOME, BUT USES CPAP AT NIGHT. PT SON TO BRING HOME CPAP TONIGHT. C/O LEFT KNEE PAIN 6/10, PO PAIN MEDS GIVEN ORDERED. TOLERATING CLEARS DIET, WILL ADVANCE ORDERED. NO N/V. ADMISSION ASSESSMENT COMPLETED. END OF SHIFT.
[2019-01-29 04:50] VITALS: BP 134/73
--- NOTE | 2019-01-29 05:21 | NUR ---
A/O, calm amd cooperative; vss; patient used CPAP until about 2am and changed it to nasal cannula. wound dressing dry and intact.
[2019-01-29 06:07] LABS: HEMATOCRIT 35.1 % (42.0-52.0); HEMOGLOBIN 11.2 gm/dL (14.0-18.0); MCH 26.4 pg (26.0-34.0); MCHC 31.9 g/dL (28.0-37.0); MCV 82.8 fL (80.0-100.0); RBC 4.25 mil/uL (4.50-6.00); RDW 17.6 % (10.5-14.5); WBC 10.1 thou/uL (4.0-11.0)
[2019-01-29 08:00] VITALS: BP 118/65
--- NOTE | 2019-01-29 17:32 | NUR ---
PT ADMITTED RELATED TO L TKA. CM REVIEWED CHART AND SPOKE WITH CARE TEAM. CM MET WITH PT AT BEDSIDE THIS DAY. PT IS A&O X4. CM ROLE INTRODUCED. PT INDICATED HE LIVES IN A HOUSE WITH HIS SON, ADOPTED SON, GRANDSON, AND GDTR. PT INDICATED HE HAS A RAMP TO ENTER AND LIVES ON THE LOWER LEVEL WITH NO STEPS. 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 PT INDICATED HE HAS A FWW, CANE, WC, COMMODE, SWIVEL BOARD, CPAP AND O2 THROUGH [facility]. PT INDICATED HE PLANS TO DO OP PT AT [facility]. PT PLANS TO RETURN HOME ONCE MEDICALLY STABLE. CM TO FOLLOW INDICATED WITH DC PLANNING.
--- NOTE | 2019-01-29 18:32 | NUR ---
PT'S BLOOD SUGAR THIS AM AT 447, PT WAS A&OX4 THUOGH PT WAS HAVING DOUBLE VISION. PT STATED HE HAD NOT HAD ANTIGLYCEMIC SINCE 01/25 AND JUST RESTARTED LAST NOC/ DR. GUERRA CALLED FOR HIMS CONSULT. DR. BERMUDEZ CONSULTED AND PLACED NEW ORDERS. PT'S BLOOD SUGAR FOR DINNER WAS 210 INPROVING SEE FLOW. DRSG TO L KNEE C/D/I WITH KRISTA DRSG INTACT. ICE BAG APPLIED. WILL CONT POC.
[2019-01-29 19:46] VITALS: BP 100/57
[2019-01-30 03:40] VITALS: BP 111/54
--- NOTE | 2019-01-30 04:55 | NUR ---
ASSUMED CARE OF PT @1900 PT ASSESED AT START OF SHIFT. PT A&OX4 AT THIS SHIFT. WITH C/O LFT KNEE PAIN. KRISTA DRESSING IN LEFT KNEE INTACT, ICE PACK IN PLACE AND PAIN MEDS GIVEN FOR MANAGEMENT SEE EMAR. POC DONE AND WILL CONTINUE TO MONITOR TILL EOS
[2019-01-30 05:42] LABS: HEMATOCRIT 31.2 % (42.0-52.0); HEMOGLOBIN 10.1 gm/dL (14.0-18.0); MCH 26.8 pg (26.0-34.0); MCHC 32.3 g/dL (28.0-37.0); MCV 82.8 fL (80.0-100.0); RBC 3.77 mil/uL (4.50-6.00); RDW 17.7 % (10.5-14.5); WBC 7.9 thou/uL (4.0-11.0)
[2019-01-30 07:59] VITALS: BP 126/59
--- NOTE | 2019-01-30 11:50 | NUR ---
PT A&OX4, IV INTACT IN R FA. AMBULATES WITH STAND BY ASSIST/ WALKER AND GAIT BELT. KRISTA DRSG TO L KNEE C/D/I. BLOOD SUGARS BEING MONITORED. BED /CHAIR FISH HOUSEKEEPER LIGHT W/I REACH. WILL CONT TO MONITOR.
[2019-01-30] MEDS ORDERED: NEURONTIN 300300 M1 PO (13:42)
[2019-01-30 16:24] VITALS: BP 114/63
[2019-01-30 21:16] VITALS: BP 122/60
--- NOTE | 2019-01-31 04:32 | NUR ---
ASSUMED CARE OF PT @1900 PT A7OX4 AT THIS SHIFT. KRISTA DRESSING ON LFT KNEE INTACT. C/O LFT KNEE PAIN. PAIN MEDS GIVEN FOR MANAGEMENT SEE EMAR. BLOOD SUGAR MONITORED AND POC DONE. USES CPAP AT NIGHT AND URINAL AT BEDSIDE. WILL CONTINUE TO MONITOR TILL EOS.
[2019-01-31 06:24] LABS: HEMATOCRIT 30.8 % (42.0-52.0); MCH 26.6 pg (26.0-34.0); MCHC 32.3 g/dL (28.0-37.0); MCV 82.2 fL (80.0-100.0); RBC 3.75 mil/uL (4.50-6.00); RDW 17.5 % (10.5-14.5); WBC 8.9 thou/uL (4.0-11.0)
[2019-01-31 07:14] VITALS: BP 91/44
--- NOTE | 2019-01-31 10:04 | NUR ---
Assumed pt care at 7am.Pt in bed for breakfast.Assessment completed.vss. Insulin given ac breakfast.Pt tolerated meds and meal.Pt was soa with ambulation sound wet.Dr Polanco rounded on pt and order noted.Lasix ivp will be given prior to pt dc home later today.Pt up in chair at present with o2 at 4lnc.Will continue to monitor.
[2019-01-31 12:15] VITALS: BP 91/44
--- NOTE | 2019-01-31 17:31 | NUR ---
CARE TEAM INDICATED PT IS MEDICALLY STABLE TO DC HOME THIS DAY. PT HAS ALL RECOMMENDED DME. PT IS ESTABLISHED WITH OP THERAPY. NO OTHER CM INTERVENTION INDICATED. CASE CLOSED.
== END 2019-01-31 14:40 | disposition home or self-care (01) | DRG 470 ==
LOC: PRE 05:27 → TBA 05:56 → 4E 05:56 → PRE 07:40 → 4E 17:28 → ENTRNSPT 01-31 14:27 → 4E 01-31 14:40
PROVIDERS: ADMIT Orthopaedic Surgery
PROC: 0SRD0J9 Replacement of Left Knee Joint with Synthetic Substitute, Cemented, Open Approach (ICD-10-PCS; principal; 2019-01-28)
PROC: 8E0Y0CZ Robotic Assisted Procedure of Lower Extremity, Open Approach (ICD-10-PCS; principal; 2019-01-28)
DX: M17.12 Unilateral primary osteoarthritis, left knee (principal); Z68.41 Body mass index [BMI] 40.0-44.9, adult; E11.9 Type 2 diabetes mellitus without complications; E66.9 Obesity, unspecified; J44.9 Chronic obstructive pulmonary disease, unspecified; Z79.82 Long term (current) use of aspirin; Z79.899 Other long term (current) drug therapy; Z83.6 Family history of other diseases of the respiratory system; Z83.3 Family history of diabetes mellitus; Z82.49 Family history of ischemic heart disease and other diseases of the circulatory system; Z85.51 Personal history of malignant neoplasm of bladder; M10.9 Gout, unspecified; E78.5 Hyperlipidemia, unspecified; Z91.09 Other allergy status, other than to drugs and biological substances
CPT/HCPCS: 10783; 50010; 50101; 50415; 50954; 51130; 51225; 51771; 53000; 53364; 54118; 56524; 56527; 56528; 57095; 57103; 57110; 57127; 57180; 62110; 62900; 70005

== ENCOUNTER → 2019-02-26 | Outpatient (CLI) | payer OTHER | LOC: ULTRA 12:36 | DX: M79.89 Other specified soft tissue disorders (principal); M79.662 Pain in left lower leg; Z96.652 Presence of left artificial knee joint ==

== ENCOUNTER 2019-06-04 13:04 | Inpatient (IN) | payer OTHER ==
[~2019-06-04] VITALS: Ht 175.3 cm; Wt 131.5 kg
--- NOTE | ~2019-06-04 | O ---
[facility] [place] [address] OPERATIVE REPORT Name: CHUCKIE CONTRERAS Room #: 463-P ADM IN M.R.#: [id number] Admission: 06/04/19 Attend Phys: Amrik Sy MD Discharge: Date of : 48 Report #: [id number] THIS REPORT FOR: //name// CC: Amrik Paul MD DATE OF SERVICE: 06/05/2019 PREOPERATIVE DIAGNOSIS: Posterior neck mass/abscess. POSTOPERATIVE DIAGNOSIS: Left posterior neck mass. PROCEDURES PERFORMED: Excision left posterior neck mass. ANESTHESIA: General. SURGEON: Amrik Sy MD COMPLICATIONS: None. ESTIMATED BLOOD LOSS: 10 mL. INDICATIONS: The patient has a nodular mass in the posterior part of the neck. His son had MRSA. There is a necrotic tissue. There is necrotic skin over this mass, which measures about 2.5 cm diameter. It is not adhesed to the fascia. The patient had a nodule on the left chin, which he expressed and it has decreased in size. It is about a cm. I thought about removing that. Initially, I thought about the drainage of the posterior neck mass, but it did not feel very fluctuant and the patient was going to have to go back on an anticoagulant. His CPAP strap runs across this area that I thought the better approach would be to go ahead and remove the entire area and close it rather than leave an open wound. The left chin area has decreased in size and ____ its own. I do not see any necrotic skin in this area. FINDINGS: The mass was excised and opened off the field and it contained a cm necrotic tissue, but not any fluid. Culture was swabbed from this area and sent anyway. Specimen sent to pathology. PROCEDURE NOTE: With the patient in the lateral position with the left side down, the posterior neck was prepped and draped in sterile fashion. The lesion was slightly to the right of the midline. After prepping with Betadine, timeout was performed. Local anesthetic of 0.5% Marcaine with ____ was used to anesthetize the skin and subcutaneous tissue. An ellipse was drawn around this. The entire mass was excised. The deeper tissue was cauterized. Hemostasis was obtained with cautery. The mass was taken off the field and then incised into [address] [address] OPERATIVE REPORT Name: CHUCKIE CONTRERAS [place] Room #: 463-P [facility] IN .R.#: [id number] Admission: 06/04/19 Attend Phys: Amrik Sy MD Discharge: Date of : 48 Report #: [id number] and did not contain any cavity. There is a subcutaneous necrosis of tissue, but no purulent fluid found. Culture was performed of this area and the specimen will be sent to pathology. The surgical site was irrigated. Hemostasis obtained. The deeper subcutaneous tissue was closed with 3-0 Vicryl in interrupted fashion. Skin was closed with 4-0 nylon and 3-0 nylon in interrupted fashion. Antibiotic ointment, 4 x 4 tape was applied. The patient was awakened and taken to recovery room. By: [id number] Amrik Sy MD /nt
[2019-06-04] MEDS ORDERED: COUMADIN 5 MG TA5 M1 PO (14:18)
[2019-06-04 15:45] VITALS: BP 135/68
[2019-06-04 17:12] LABS: HEMATOCRIT 35.7 % (42.0-52.0); HEMOGLOBIN 11.3 gm/dL (14.0-18.0); MCHC 31.7 g/dL (28.0-37.0); RBC 4.35 mil/uL (4.50-6.00); RDW 17.1 % (10.5-14.5); WBC 7.2 thou/uL (4.0-11.0)
[2019-06-04 17:31] LABS: CALCIUM 8.7 mg/dL (8.5-10.1); CREATININE 1.3 mg/dL (0.7-1.3); INR 1.8; POTASSIUM 4.8 mmol/L (3.5-5.1); PROTIME 18.8 Seconds (9.3-11.4)
--- NOTE | 2019-06-04 19:45 | NUR ---
A/O, calm and pleasant; compains pain in head, pain medicattion given and worked, stating that the pain is caused by absess in neck. Consent for tomorrow's surgery signed. vss. lab reviewed.
[2019-06-04 19:49] VITALS: BP 128/73
--- NOTE | 2019-06-05 04:02 | NUR ---
Pt. rested quietly at intervals during the night when checked on during frequent rounds. He did c/o pain to his head and po pain med given (see emar) with relief voiced.
[2019-06-05 08:00] VITALS: BP 138/73
[2019-06-05 10:17] LABS: INR 1.3; PROTIME 13.6 Seconds (9.3-11.4)
--- NOTE | 2019-06-05 12:00 | NUR ---
PT ADMITTED RELATED TO NECK ABCESS. CM REVIEWED CHART AND SPOKE WITH CARE TEAM. CM MET WITH PT AT BEDSIDE THIS DAY. PT IS A&O X4. CM ROLE INTRODUCED. PT INDICATED HE LIVES IN A HOUSE WITH HIS SON AND GRANDSON WITH A RAMP TO ENTER AND NO STEPS HE USES INSIDE. 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 PT INDICATED HE HAD HH AND OP THERAPY IN THE PAST AND THAT HE WOULD BE RECEPTIVE TO SERVICES IF HE NEEDS THEM UPON DC. HE INDICATED THAT HIS SON IS A FORMER [employer] MED TECH SO HE CAN ASSIST HIM WITH WOUND CARE. PT INDICATED HE PLANS TO RETURN HOME ONCE MEDICALLY STABLE. PT IS TO HAVE AN I&D THIS DAY. CM TO FOLLOW INDICATED WITH DC PLANNING.
[2019-06-05 15:00] VITALS: BP 116/57
--- NOTE | 2019-06-05 16:47 | NUR ---
Assumed pt care this am, ordered early breakfast as per the warehouse worker 2nd shift since pt is having the I and D done today. kept NPO til now as per OR they are projecting they will take the pt around 6 pm as per line up. VS have been stable, POC followed, no signs or verbalizations of distress have been noted.
--- NOTE | 2019-06-06 03:41 | NUR ---
PT WAS OUT FOR ABCESS EXCISON WHEN NURSE ARRIVED.PT RETURNED AT 2235 AND BED SIDE REPORT GIVEN.PT A/O X4.PT C/O OF HUNGER AND SANDWICH PACKS GIVEN.PT REFUSED ANY PAIN AND N/V.PT MEDICATION CONTINUED ORDERED.WILL CONTINUE TO MONITOR
[2019-06-06 04:01] VITALS: BP 112/47
[2019-06-06 07:31] VITALS: BP 106/46
--- NOTE | 2019-06-06 10:26 | NUR ---
Nutrition: Assessed d/t BMI > 40 (42.8 kg/m2), high risk class III obesity. Here for neck abscess and s/p excision of neck abscess on 06/05 w/ findings of central necrosis. Hx: DM, HTN, COPD, anemia, PVD. Per EMR, pt gained +22# in 6 mo between 06/2018 - 12/2017, since losing 12# in the last 5 mo for a healthy 7.3% wt change. He weighed 302# per 12/31/18, now down to 290#. Regularly takes his DM meds. RD discussed importance of balanced food groups, encouraging fruits/vegetables w/ lean protein at meals. BG well controlled yesterday, high of only 124 mg/dl (but pt also not eating for surgery). He declined further nutrition ed needs, but allowed vitamin K education for warfarin interaction as he was on warfarin prior to surgery. Low nutrition risk otherwise.
--- NOTE | 2019-06-06 11:57 | NUR ---
Assumed pt care at 7am.Pt in bed resting without any c/o.Assessment completed. Vss.Blood sugar at breakfast was 122.Insulin given as ordered with breakfast. Bp and hr was low.med held till noon.Will recheck and give med if bp elevated. Dr June and Yossi here and order noted.Will replace neck drsg later today.No verbal c/o.Will continue to monitor.
[2019-06-06 15:10] VITALS: BP 135/56
[2019-06-06 15:59] LABS: HEMATOCRIT 35.6 % (42.0-52.0); HEMOGLOBIN 11.2 gm/dL (14.0-18.0); MCH 26.1 pg (26.0-34.0); MCHC 31.5 g/dL (28.0-37.0); MCV 82.9 fL (80.0-100.0); RBC 4.3 mil/uL (4.50-6.00); RDW 17.1 % (10.5-14.5); WBC 6.3 thou/uL (4.0-11.0)
[2019-06-06 16:08] LABS: CALCIUM 9.1 mg/dL (8.5-10.1); CREATININE 2.2 mg/dL (0.7-1.3)
--- NOTE | 2019-06-06 16:45 | NUR ---
PT HAD I&D YESTERDAY. AWAITING ID RECS. CM TO FOLLOW INDICATED WITH DC PLANNING.
[2019-06-06 19:30] VITALS: BP 140/66
--- NOTE | 2019-06-07 01:45 | NUR ---
PT IS A/O X4.PT DENIED PAIN ,NAUSEA AND VOMITING.PT IS ACCUCHECK ACHS.PT IV ANTIBIOTICS SWITCHED TO ORAL.PT IS AWAITING RESULTS OF CULTURES FOR REEVALUATION AND POSSIBLE D/C TOMORROW.PT USES CPAP AT NIGHT AND RA DURING THE DAY.CONTINUE TO MONITOR
[2019-06-07 08:06] VITALS: BP 108/46
--- NOTE | 2019-06-07 15:16 | NUR ---
PATIENT WITH NEED FOR ZYVOX. CALLED [facility] ON FILE THEY RAN SCRIPT WITH INSURANCE. $12.23 COPAY BUT HIS PHARMACY DOES NOT HAVE IN STOCK. CANNOT GET UNTIL MONDAY.
[2019-06-07 15:56] VITALS: BP 143/75
--- NOTE | 2019-06-07 16:08 | HC ---
[facility] [place] [address] CONSULTATION Name: CHUCKIE CONTRERAS Room #: 463-P ADM IN M.R.#: [id number] Admission: 06/04/19 Attend Phys: Amrik Sy MD Discharge: Date of : 48 Report #: [id number] THIS REPORT FOR: //name// CC: Amrki Paul DATE OF SERVICE: 06/06/2019 INFECTIOUS DISEASE CONSULTATION REASON FOR CONSULTATION: I was asked to evaluate concerning neck soft tissue abscess. HISTORY OF PRESENT ILLNESS: The patient is a 69-year-old anticoagulated with underlying diabetes and obesity. Developed a tender, swollen area to his left face, then followed by his posterior neck. The facial lesion drained on its own, the neck did not. Has a moderate amount of tenderness to it. Was given doxycycline without benefit. Taken to surgery yesterday evening for debridement. Cultures are pending. His son had MRSA soft tissue abscess several weeks ago. The patient has had previous MRSA soft tissue infection involving his hand. No fever, chills or sweats. No nausea, vomiting or diarrhea. Otherwise, feels well. Denies any cardiopulmonary or GI or symptoms. REVIEW OF SYSTEMS: A 10-point review of system was negative other than what has been described above. ALLERGIES: ADHESIVE TAPE. MEDICATIONS: Included aspirin, Anoro Ellipta inhaler, vitamin E, vitamin B complex, calcium, vitamin D, vitamin C, fish oil, Glucophage, metoprolol, Coumadin, simvastatin, Januvia, Glucotrol, pramipexole, Prinivil, now on vancomycin. PAST MEDICAL HISTORY: Diabetes, hypertension, hyperlipidemia, gastroesophageal reflux, MRSA soft tissue infection of his hand, bladder cancer, oral surgery with full mouth extraction, right hip fracture fixation, restless leg syndrome, lumbar laminectomy, left foot arthrodesis, right total knee arthroplasty, COPD, obstructive sleep apnea, cholecystectomy. FAMILY HISTORY: Diabetes, COPD, hypertension. SOCIAL HISTORY: Past smoker, no significant alcohol intake. PHYSICAL EXAMINATION: [facility] [address] [place] [address] CONSULTATION Name: CHUCKIE CONTRERAS [place] Room #: [address] [place] [address] IN M.R.#: [id number] Admission: 06/04/19 Attend Phys: Amrik Sy MD Discharge: Date of : 48 Report #: [id number] VITAL SIGNS: He is afebrile and hemodynamically stable. GENERAL: Alert and cooperative and pleasant, in no acute distress. NECK: Posterior neck incision dressed with serosanguineous drainage. No other skin lesions noted. No adenopathy. EYES: Without scleral icterus. MOUTH: Without mucositis. LUNGS: Clear. HEART: Regular. ABDOMEN: Soft, obese, and nontender with no hepatosplenomegaly or mass. EXTREMITIES: Without clubbing, cyanosis or edema. LABORATORY STUDIES: Reviewed. Hemoglobin 11, WBC 7, creatinine 1.3. Cultures pending. Path pending. IMPRESSION: 1. A 69-year-old with soft tissue abscess, posterior neck, suspecting methicillin-resistant Staphylococcus aureus. 2. Diabetes. 3. Anticoagulated. 4. Obesity. 5. Obstructive sleep apnea. RECOMMENDATIONS: We will continue with Zyvox, pending final culture results. Outpatient care when Surgery Service feels reasonable. <ELECTRONICALLY SIGNED> By: Anand June MD 06/07/19 1608 [id number] 1252 Anand June MD /nt
--- NOTE | 2019-06-07 20:15 | NUR ---
Assumed pt care this am, pt is up at marlene and has had no difficulty through out the day. Wound dressing change done, POC followed no signs or verbalizations of distress have been noted. Blood sugar checks done with appropriate medication given as per the emar. Son was at the bedside this pm, awaiting dc. Endorsed to the night nurse.
[2019-06-07 20:30] VITALS: BP 146/79
--- NOTE | 2019-06-08 04:05 | NUR ---
ASSUMED CARE AROUND 191. AXOX4. POSTERIOR NECT DRESSING CDI. VSS. NO S/S ACUTE DISTRESS NOTED OR REPORTED AT THIS TIME. WILL CONT TO MONITOR FOR ANY CHANGES IN CONDITION.
[2019-06-08 05:58] LABS: CALCIUM 8.9 mg/dL (8.5-10.1); CREATININE 1.5 mg/dL (0.7-1.3); MAGNESIUM 1.7 mg/dL (1.8-2.4); POTASSIUM 4.4 mmol/L (3.5-5.1)
[2019-06-08 08:06] VITALS: BP 116/58
[2019-06-08] MEDS ORDERED: LINEZOLID600 MG PO (11:58)
[2019-06-08 12:08] VITALS: BP 116/58
--- NOTE | 2019-06-08 12:35 | NUR ---
Assumed pt care this am, dressing at the nape of the neck clean dry and intacty, dressing change done this am. No signs or verbalizations of distress have been noted. VS stable. POC followed, medictions and diet is well tolerated. DC intructions given to the pt and the son. Pt is now dc and was taken home by the son.
--- NOTE | 2019-06-08 16:06 | PATH ---
[facility] [address] [place] [address] PATHOLOGY RPT PROCEDURE Name: LUIS FERNANDO CONTRERAS Room #: 463-P DIS IN M.R.#: [id number] Admission: 06/04/19 Date of : 48 Discharge: 06/08/19 Report #: [id number] Path Case #: [id number] [facility] Accession Number: [id number] . 01 Material submitted: . neck - POSTERIOR NECK MASS. Modifiers: posterior . 01 Clinical history: . Neck abscess . 02 Diagnosis: Posterior neck mass, excision: - Marked acute inflammation associated with abscess formation. - Squamous epithelium showing reactive changes. (IUV:taco; 06/07/2019) QMS 06/08/2019 1510 Local . 02 Electronically signed: . Faith Dominguez MD, Pathologist NPI- [id number] . 01 Gross description: . The specimen is received in formalin, labeled "Luis Fernando Contreras, posterior neck mass" and consists of a previously cut skin ellipse measuring 4.9 x 2.3 x 1.8 cm. Present on the surface is an ulcerated abscess lesion measuring 1.0 x 1.0 cm. Sectioning reveals the abscess extends to a depth of approximately 1 cm. Crutcher Helper sections are submitted in A1-A2. (SDY; 06/06/2019) SYU/SYU 06/06/2019 1725 Local . 02 Pathologist provided ICD-10: L72.0 . 02 CPT . 565947 Specimen Comment: A courtesy copy of this report has been sent to [phone] Specimen Comment: Report sent to Performed at: [address], [place] [id number] MD Dmitry Glass MD Phone: [phone] Performed at: [address] [id number] MD Faith Dominguez MD Phone: [phone]
== END 2019-06-08 12:46 | disposition home or self-care (01) | DRG 570 ==
LOC: 4W 13:04
PROVIDERS: Internal Medicine; ADMIT Surgery
PROC: 0JB50ZZ Excision of Left Neck Subcutaneous Tissue and Fascia, Open Approach (ICD-10-PCS; principal; 2019-06-05)
PROC: 5A09457 Assistance with Respiratory Ventilation, 24-96 Consecutive Hours, Continuous Positive Airway Pressure (ICD-10-PCS; 2019-06-06)
DX: L02.11 Cutaneous abscess of neck (principal); J96.21 Acute and chronic respiratory failure with hypoxia; J96.22 Acute and chronic respiratory failure with hypercapnia; N17.9 Acute kidney failure, unspecified; Z68.41 Body mass index [BMI] 40.0-44.9, adult; G25.81 Restless legs syndrome; E66.01 Morbid (severe) obesity due to excess calories; E78.00 Pure hypercholesterolemia, unspecified; M19.90 Unspecified osteoarthritis, unspecified site; K21.9 Gastro-esophageal reflux disease without esophagitis; E11.51 Type 2 diabetes mellitus with diabetic peripheral angiopathy without gangrene; Z96.651 Presence of right artificial knee joint; J44.9 Chronic obstructive pulmonary disease, unspecified; G47.33 Obstructive sleep apnea (adult) (pediatric); D63.8 Anemia in other chronic diseases classified elsewhere; B95.62 Methicillin resistant Staphylococcus aureus infection as the cause of diseases classified elsewhere; Z79.01 Long term (current) use of anticoagulants; Z88.8 Allergy status to other drugs, medicaments and biological substances; Z86.14 Personal history of Methicillin resistant Staphylococcus aureus infection; Z85.51 Personal history of malignant neoplasm of bladder; Z86.711 Personal history of pulmonary embolism; Z86.718 Personal history of other venous thrombosis and embolism; Z90.49 Acquired absence of other specified parts of digestive tract; Z83.6 Family history of other diseases of the respiratory system; Z82.49 Family history of ischemic heart disease and other diseases of the circulatory system; Z83.3 Family history of diabetes mellitus; Z87.891 Personal history of nicotine dependence; Z79.82 Long term (current) use of aspirin; Z79.899 Other long term (current) drug therapy
CPT/HCPCS: 10047; 50010; 50101; 50386; 50403; 50445; 56524; 56526; 56527; 62110; 62900; 70005

== ENCOUNTER → 2019-08-19 | Outpatient (CLI) | payer OTHER ==
[~2019-08-19] MED LIST changes: +COUMADIN 5 MG TA5 M1 PO; +LINEZOLID600 MG PO
== END ==
LOC: CAT 07:51
DX: Z12.2 Encounter for screening for malignant neoplasm of respiratory organs (principal); I70.0 Atherosclerosis of aorta; J43.9 Emphysema, unspecified; Z87.891 Personal history of nicotine dependence

== ENCOUNTER → 2020-01-09 | Outpatient (CLI) | payer OTHER | LOC: RAD 09:55 | PROVIDERS: ATTEND Neuromusculoskeletal Medicine & OMM | DX: M47.816 Spondylosis without myelopathy or radiculopathy, lumbar region (principal); M54.5 Low back pain; M41.56 Other secondary scoliosis, lumbar region; M48.05 Spinal stenosis, thoracolumbar region; G95.19 Other vascular myelopathies; M48.061 Spinal stenosis, lumbar region without neurogenic claudication; E11.22 Type 2 diabetes mellitus with diabetic chronic kidney disease; I12.9 Hypertensive chronic kidney disease with stage 1 through stage 4 chronic kidney disease, or unspecified chronic kidney disease; N18.3 Chronic kidney disease, stage 3 (moderate); E11.29 Type 2 diabetes mellitus with other diabetic kidney complication; E78.00 Pure hypercholesterolemia, unspecified; R80.9 Proteinuria, unspecified; Z79.4 Long term (current) use of insulin ==

== ENCOUNTER → 2020-01-28 | Outpatient (CLI) | payer OTHER | LOC: MRI 09:13 | PROVIDERS: ATTEND Neuromusculoskeletal Medicine & OMM | DX: M51.17 Intervertebral disc disorders with radiculopathy, lumbosacral region (principal); M48.07 Spinal stenosis, lumbosacral region; M47.27 Other spondylosis with radiculopathy, lumbosacral region ==

== ENCOUNTER → 2020-02-12 | Outpatient (CLI) | payer OTHER | LOC: RAD 07:58 | DX: M47.816 Spondylosis without myelopathy or radiculopathy, lumbar region (principal); M41.86 Other forms of scoliosis, lumbar region ==

== ENCOUNTER → 2020-03-03 | Outpatient (CLI) | payer OTHER ==
[~2020-03-03] VITALS: Ht 175.3 cm; Wt 142.9 kg
[~2020-03-03] MED LIST changes: +LISINOPRIL10 MG PO
--- NOTE | ~2020-03-03 | HPC ---
[facility] [place] [address] PAIN MANAGEMENT CONSULTATION Name: CHUCKIE CONTRERAS Room #: REG JOHNNIE Batsheva#: [id number] Admission: 03/03/20 Attend Phys: Rufus Merino DO Discharge: Date of : 48 Report #: [id number] THIS REPORT FOR: cc: Estuardo Paul,Rufus Medeiros DO ~ CC: Osei Paul DATE OF SERVICE: 03/03/2020 CHIEF COMPLAINT: Low back pain, bilateral buttock and posterolateral thigh pain. HISTORY OF PRESENT ILLNESS: As you know, the patient is a class 3, morbidly obese male who reports acute onset of low back pain, bilateral lower extremity pain that began 12/2019. The patient states no history of injury or trauma that may have led to symptom development. He indicates that he has difficulty walking greater than 50 feet before he has to sit down or rest. He sought initially conservative treatment with rxne-toh-pveiacl medications, rest, relaxation. He then contacted his primary care physician who provided a referral to Orthopedic Surgery to discuss treatment options. The patient was seen by Dr. Patel at the visit of 02/12/2020 where he was diagnosed with severe neural foraminal and central canal stenosis. They discussed surgical options at that time, but determined that possibly trying conservative treatment in the form of epidurals would be beneficial. The patient was subsequently referred to our clinic. The patient reports today his pain is continuous. Describes the pain as cramping and aching. Places current pain score at 8/10. Daily average at 8/10, worst pain has been is 10/10. The patient states the pain is exacerbated with "sitting for long periods of time." The patient states his pain is improved with lying down in bed. He has been referred to our service to discuss interventional treatments, specifically to address lumbar radiculopathy secondary to severe central canal stenosis and neural foraminal stenosis. PAST MEDICAL HISTORY: 1. Diabetes mellitus type 2. 2. Chronic obstructive pulmonary disease. 3. Degenerative joint disease of the bilateral lower extremities. 4. Chronic edema. 5. Hypercholesterolemia. 6. Hypertension. 7. Morbid obesity. 8. Obstructive sleep apnea. [address] [address] PAIN MANAGEMENT CONSULTATION Name: CHUCKIE CONTRERAS SELENA Room #: REG [facility] Batsheva#: [id number] Admission: 03/03/20 Attend Phys: Rufus Merino DO Discharge: Date of : 48 Report #: [id number] 9. Restless leg syndrome. 10. Rheumatoid arthritis. 11. Spinal stenosis of lumbar spine. PAST SURGICAL HISTORY: 1. Bladder surgery. 2. Cholecystectomy. 3. Foot surgery. 4. Repeat foot surgery. 5. Hip surgery. 6. Knee surgery. 7. Lumbar laminectomy. 8. Neck surgery. 9. Total knee arthroplasty. 10. Replacement of total knee arthroplasty. SOCIAL HISTORY: The patient is a reformed smoker. He smoked 1 pack a day and did that for 50 years, he quit in 06/2017. He denies IV or illicit drug use. Denies any chronic alcohol use. He reports himself as retired. He is not receiving workmen's compensation nor is he trying to obtain discrete benefits. He is not in litigation in regards to pain. He is unaccompanied at today's visit. REVIEW OF SYSTEMS: Positive for weight gain, fatigue and weakness, wearing corrective eyewear, shortness of breath with walking or lying flat, non-insulin dependent diabetes, chronic low back pain, bilateral lower extremity pain. All other review of systems negative per 12-point review of systems other than those listed in history of present illness. Pain impact score 9/70 indicating mild interference of daily activities secondary to pain. ALLERGIES: ADHESIVE TAPES. CURRENT MEDICATIONS: Lisinopril 10 mg once a day, metoprolol 50 mg once a day, metformin 1000 mg twice a day, Tylenol regular strength 325 mg every 6 hours p.r.n. pain. Home oxygen 2 liters at night, omega-3 fish oil 1 tab per day, ascorbic acid 500 mg per day, vitamin B complex 1 tab per day, vitamin E 400 units per day, pramipexole 0.5 mg once a day, Anoro Ellipta 62.5/25 mcg inhaled 2 puffs as needed, glipizide 10 mg per day, aspirin 81 mg per day, Januvia 100 mg once a day, simvastatin 20 mg once a day. IMAGING: MRI lumbar spine obtained 01/28/2020 shows diffuse disk bulge at L1-L2, mild thecal sac effacement, moderate to severe facet arthrosis with thickening of ligamentum flavum, mild neural foraminal stenosis. L2-L3 prominent posterior disk bulge with osteophyte ridging, severe bilateral facet [facility] [address] [place] [address] PAIN MANAGEMENT CONSULTATION Name: CHUCKIE CONTRERAS Room #: REG JOHNNIE Herman#: [id number] Admission: 03/03/20 Attend Phys: Rufus Merino DO Discharge: Date of : 48 Report #: [id number] arthrosis, severe central canal stenosis. L3-L4 broad-based posterior disk bulge with osteophytic ridging, thickening of ligamentum flavum, severe bilateral facet arthrosis, severe central canal stenosis. L4-L5 synovial cyst arising from the left facet joint measuring 11 x 9 x 6 mm, impingement upon the descending left L5 nerve root. Severe subarticular stenosis. Severe central canal stenosis, moderate right neural foraminal stenosis and severe left neural foraminal stenosis. L5-S1 diffuse disk bulge, mild thecal sac stenosis, severe bilateral facet arthropathy, right neural foraminal stenosis. PQRS: The patient has arthritic changes of the lumbar spine, bilateral hips and bilateral knees, status post surgeries. He reports rheumatoid arthritis. Pain intensity is 8/10. He is a fall risk, but has not had a fall in last 3 months. He utilizes a cane for ambulation. He is not on blood thinners, but is treated for hypertension. He is not on chronic opioids. He has a low opioid addiction potential based on our assessment tool. Pain impact is 9/70, mild interference of daily activities secondary to pain. PHYSICAL EXAMINATION: VITAL SIGNS: Blood pressure 118/74, pulse is 60, respiratory rate 20 and unlabored. The patient is 96% on room air. Height 5 feet 9 inches tall, weight 315 pounds, BMI calculated 46.5. GENERAL: Well-developed, well-nourished, well-hydrated, class 3+, morbidly obese male, appears stated age. He is in no acute distress, awake, alert and oriented x 3, pain is rated today at 8/10. HEENT: Normocephalic, atraumatic. Pupils equal, round and reactive. NEUROLOGIC: Speech is fluent. The patient deemed a good historian. He is wearing a mask in compliance with COVID-19 restrictions. LUNGS: Decreased breath sounds bilaterally, prolonged expiratory phase. No wheezes, rhonchi or rales noted. CARDIOVASCULAR: Regular. No appreciable gallop, no rub. ABDOMEN: Soft. Severely obese, normoactive bowel sounds. EXTREMITIES: Show no clubbing, no cyanosis. Mild nonpitting lower extremity edema. MUSCULOSKELETAL: The patient is able to ambulate, but is unsteady in gait. He can perform heel and toe walk, but again unstable. Reflexes appear equal and symmetrical at patella and Achilles. Lower extremity strength is 5/5. Decreased tactile sensation on the plantar surface of the foot. Seated straight leg raising negative. Supine straight leg raising negative. ASSESSMENT: 1. Lumbar radiculopathy. 2. Severe central canal stenosis of lumbar spine. 3. Displacement of lumbar intervertebral disk with radiculopathy. 4. Lateral recess stenosis. 5. Neural foraminal stenosis. 6. [place] [address] PAIN MANAGEMENT CONSULTATION Name: CHUCKIE CONTRERAS [facility] [id number] Admission: 03/03/20 Attend Phys: Rufus Merino DO Discharge: Date of : 48 Report #: [id number] 7. Chronic intractable pain. 8. Morbid obesity. PLAN: 1. The patient has been referred to our service to discuss treatment options from an interventional standpoint to address lumbar radicular symptoms secondary to severe central canal stenosis. We did discuss with the patient in entirety the options for treatment that are available including the options of treatment that we could provide through our services. The following was discussed with the patient today. We discussed physical therapy, stretching exercises and a concerted effort at weight loss, whether this would require bariatric surgery would remain to be seen, but alleviating some of the patient's weight would significantly improve overall pain. We discussed suggestions in medication management such as neuropathic pain medication such as amitriptyline, nortriptyline, Cymbalta, Lyrica or gabapentin in conjunction with an anti-inflammatory medication if at all possible. We discussed interventional treatments, which the patient was referred to our clinic including a lumbar epidural injection. We also discussed the surgical options with the patient given the severity of his stenosis at multiple levels, which will likely be necessary. After reviewing the risks and benefits of all proposed treatment options, the patient chose to move forward with a lumbar epidural injection. 2. We spent with the patient over 20 minutes of time reviewing the patient's MRI and how it correlates to his current symptoms. The patient reports that he has a good understanding of the findings of the MRI after we presented the information along with plastic modeling and digital imaging. 3. No medication changes made at today's visit. The patient will continue current medical therapy as previously prescribed. 4. We will plan to see the patient back in followup visit in 30 days. At that time, review the efficacy of today's lumbar epidural injection to determine if next in the series might be necessary. We are hopeful the patient will see good and prolonged benefit with today's procedure. 5. We wish to thank Dr. Patel for the referral of the patient to our clinic to undergo interventional treatments. We will keep you apprised of his response to treatment. Again, we wish to thank you for the opportunity to see the patient to undergo injection therapies. DESCRIPTION OF PROCEDURE: L5-S1 intralaminar epidural steroid injection under fluoroscopic guidance. This is the first procedure of the first series that the patient is undergoing. After obtaining written consent, the patient was taken back to the fluoroscopy suite, placed in a prone position with pillow under the abdomen to decrease lumbar lordosis. The skin overlying the lumbosacral area was then prepped and [address] [address] PAIN MANAGEMENT CONSULTATION Name: CHUCKIE CONTRERAS Room #: REG [facility].#: [id number] Admission: 03/03/20 Attend Phys: Rufus Merino DO Discharge: Date of : 48 Report #: [id number] draped in aseptic fashion. The L5-S1 vertebral interspace was then identified by AP fluoroscopy. The skin and subcutaneous tissue overlying the target site of injection was anesthetized with 3 mL 1% lidocaine. A 20-gauge 4.5 inch Tuohy needle was then advanced under fluoroscopic guidance towards the epidural space using a parasagittal approach. The epidural space was identified using loss of resistance to air technique. After negative aspiration for heme or cerebrospinal fluid, a total of 1 mL of Omnipaque was injected. A lumbar epidurogram was confirmed using both AP and lateral fluoroscopy. After negative aspiration for heme or cerebrospinal fluid, 5 mL of a solution containing 2 mL 40 mg/mL 80 mg total triamcinolone along with 3 mL of lidocaine 1% was injected in increments. Contrast spread was noted in post epidural space. The needle was then retracted approximately half way and needle tract flushed with 1 mL of 1% lidocaine. Needle was then removed. There were no apparent sensory or motor deficits in the lower extremity following the procedure. A sterile bandage was placed over the injection site. The heart rate, pulse, oximetry and blood pressure were continuously monitored after the procedure. There were no apparent complications. The patient tolerated the procedure well and was carefully escorted to the recovery room in stable condition. There were no apparent complications. After meeting discharge criteria, the patient was then discharged home. By: [id number] Rufus Merino DO /nt
[2020-03-03 08:52] VITALS: BP 118/74
--- NOTE | 2020-03-03 08:52 | NUR ---
Pain Clinic Assessment: 1. History of Osteoarthritis: BACK Left Lower Extremity Right Lower Extremity History of Rheumatoid Arthritis: Not Applicable 2. Height: 5 ft. 9 in. 175.3 cm. Weight: 315.0 lb. oz. 142.884 kg. Patient's BMI: 3. Vital Signs: BP: Pulse: Resp: Temp: 02 Sat: ECG Mon: 4. Pain Intensity: 8 5. Fall Risk: Dizziness: Needs help standing or walking: Fallen in the last 3 months: Fall risk comments: 6. Patient on Blood Thinner: None 7. History of Hypertension: Y 8. Opioid Therapy greater than 6 weeks: N Opiate Contract Signed: 9. Risk Assessment Tool Provided: LOW 10. Functional Assessment Tool: 11. Recreational Drug Use: Never Drug Type: Tobacco Use: Never Smoker Tobacco Type: Amount or Packs/day: How Many Years: Alcohol Use: No Frequency: Quant:
--- NOTE | 2020-03-03 08:53 | NUR ---
Pain Clinic Assessment: 1. History of Osteoarthritis: BACK Left Lower Extremity Right Lower Extremity History of Rheumatoid Arthritis: Not Applicable 2. Height: 5 ft. 9 in. 175.3 cm. Weight: 315.0 lb. oz. 142.884 kg. Patient's BMI: 46.5 3. Vital Signs: BP: 118/74 Pulse: 60 Resp: 20 Temp: 02 Sat: 96 ECG Mon: 4. Pain Intensity: 8 5. Fall Risk: Dizziness: Needs help standing or walking: Fallen in the last 3 months: Fall risk comments: 6. Patient on Blood Thinner: None 7. History of Hypertension: Y 8. Opioid Therapy greater than 6 weeks: N Opiate Contract Signed: 9. Risk Assessment Tool Provided: LOW 10. Functional Assessment Tool: 11. Recreational Drug Use: Never Drug Type: Tobacco Use: Never Smoker Tobacco Type: Amount or Packs/day: How Many Years: Alcohol Use: No Frequency: Quant:
== END | disposition home or self-care (01) ==
LOC: PAIN 06:50
PROVIDERS: ATTEND Anesthesiology Pain Medicine
DX: M51.16 Intervertebral disc disorders with radiculopathy, lumbar region (principal); M48.061 Spinal stenosis, lumbar region without neurogenic claudication; G89.29 Other chronic pain; I10 Essential (primary) hypertension; J44.9 Chronic obstructive pulmonary disease, unspecified; E11.9 Type 2 diabetes mellitus without complications; M19.90 Unspecified osteoarthritis, unspecified site; E78.00 Pure hypercholesterolemia, unspecified; G47.33 Obstructive sleep apnea (adult) (pediatric); M06.9 Rheumatoid arthritis, unspecified; E66.01 Morbid (severe) obesity due to excess calories; Z98.890 Other specified postprocedural states; Z79.899 Other long term (current) drug therapy; Z90.49 Acquired absence of other specified parts of digestive tract; Z96.653 Presence of artificial knee joint, bilateral; Z85.51 Personal history of malignant neoplasm of bladder

== ENCOUNTER → 2020-03-30 | Outpatient (CLI) | payer OTHER ==
[~2020-03-30] MED LIST changes: +BASAGLAR K100 UNIT/1 SUBQ; +PROAIR HFA8.5 GM INH
== END ==
LOC: RAD 10:44
PROVIDERS: ATTEND Internal Medicine
DX: J44.9 Chronic obstructive pulmonary disease, unspecified (principal)

== ENCOUNTER → 2020-04-02 | Outpatient (CLI) | payer OTHER | LOC: LAB 08:29 | DX: Z01.812 Encounter for preprocedural laboratory examination (principal); Z20.828 Contact with and (suspected) exposure to other viral communicable diseases ==

== ENCOUNTER → 2020-04-03 | Outpatient (CLI) | payer OTHER ==
[~2020-04-03] MED LIST changes: +MIRALAX119 GM PO; +ROBAXIN 750 MG750 MG PO
== END ==
LOC: SJCVC 10:06
PROVIDERS: ATTEND Internal Medicine Cardiovascular Disease
DX: Z01.810 Encounter for preprocedural cardiovascular examination (principal); R06.00 Dyspnea, unspecified; I25.10 Atherosclerotic heart disease of native coronary artery without angina pectoris; I10 Essential (primary) hypertension; E78.00 Pure hypercholesterolemia, unspecified; Z79.899 Other long term (current) drug therapy; Z87.891 Personal history of nicotine dependence

== ENCOUNTER 2020-04-07 07:47 | Inpatient (IN) | payer OTHER ==
[2020-04-02 09:25] LABS: ABSOLUTE NEUTROPHILS 7.3 thou/uL (1.4-8.2); BASOPHILS 0.4 % (0.0-2.0); EOSINOPHILS 3.6 % (0.0-3.0); HEMATOCRIT 39.7 % (42.0-52.0); HEMOGLOBIN 12.9 gm/dL (14.0-18.0); MCH 27.3 pg (26.0-34.0); MCHC 32.4 g/dL (28.0-37.0); MCV 84.2 fL (80.0-100.0); MONOCYTES 10.2 % (1.0-8.0); PLATELET COUNT 312 thou/uL (150-400); POLYS 71.8 % (36.0-66.0); RBC 4.71 mil/uL (4.50-6.00); RDW 15.5 % (10.5-14.5); WBC 10.2 thou/uL (4.0-11.0)
[2020-04-02 09:41] LABS: APTT 26.3 Seconds (24.5-32.8); PROTIME 9.9 Seconds (9.3-11.4)
[2020-04-02 09:50] LABS: ALBUMIN 3.4 g/dL (3.4-5.0); CREATININE 1.8 mg/dL (0.7-1.3); MAGNESIUM 1.6 mg/dL (1.8-2.4); POTASSIUM 5.5 mmol/L (3.5-5.1); TOTAL BILIRUBIN 0.3 mg/dL (0.2-1.0); TOTAL PROTEIN 7.1 g/dL (6.4-8.2)
[2020-04-02 09:51] LABS: URINE BILIRUBIN NEGATIVE (Negative); URINE BLOOD TRACE (Negative); URINE CLARITY CLEAR; URINE COLOR YELLOW; URINE GLUCOSE-RANDOM* NEGATIVE (Negative); URINE KETONES NEGATIVE (Negative); URINE NITRITE-REFLEX NEGATIVE (Negative); URINE PROTEIN (DIPSTICK) TRACE (Negative); URINE UROBILINOGEN 0.2 E.U./dl (0.2-1.0)
[2020-04-02 09:53] LABS: URINE LEUKOCYTES-REFLEX 1+ (Negative)
[2020-04-02 10:33] LABS: BACTERIA-REFLEX 1-9 Few /HPF (None Seen); CASTS None Seen /LPF (None Seen); CRYSTALS None Seen /LPF (None Seen); SQUAMOUS 0-3 Few /LPF (0-3); URINE RBC 0-2 Rare /HPF (0-2); URINE WBC-REFLEX 6-15 Few /HPF (0-5)
--- NOTE | 2020-04-02 11:14 | EKG ---
[facility] [address] ELECTROCARDIOGRAM REPORT Name: CHUCKIE CONTRERAS Room #: PRE IN M.R.#: [id number] Admission: Attend Phys: Osei Patel MD Discharge: Date of : 48 Report #: [id number] THIS REPORT FOR: cc: Estuardo Paul,Oscar Juarez MD [facility] THIS REPORT FOR: //name// [facility] Test Date: 2020-04-02 Test Time: 08:59:31 Pat Name: CHUCKIE CONTRERAS Department: Room: Gender: Cobbler Upper: DREAD : 1950 Requested By: Osei Patel Order Number: [id number] MD: Oscar Brennan Measurements Intervals [place] Rate: 66 P: 37 UT: 165 QRS: -38 QRSD: 106 T: 12 QT: 379 QTc: 398 Interpretive Statements Sinus rhythm Left axis deviation Low voltage, precordial leads Compared to ECG 12/31/2018 01:37:10 No significant changes Electronically Signed On 04-02-2020 11:14:42 CDT by Oscar Brennan [email or web address] <ELECTRONICALLY SIGNED> By: Oscar Bernnan MD, FACC 04/02/20 [id number] Oscar Brennan MD, [facility] /EPI
[2020-04-03 00:06] LABS: GLYCOHEMOGLOBIN (HGB A1C) 8.1 % (4.8-5.6)
[~2020-04-07] VITALS: Ht 175.3 cm; Wt 148.8 kg
[~2020-04-07 07:47] MED LIST changes: -MIRALAX119 GM PO; -ROBAXIN 750 MG750 MG PO
[2020-04-07 11:37] VITALS: BP 136/69
[2020-04-07 18:24] VITALS: BP 104/49
[2020-04-07 19:13] LABS: ABSOLUTE NEUTROPHILS 9.9 thou/uL (1.4-8.2); BASOPHILS 0.2 % (0.0-2.0); EOSINOPHILS 0.1 % (0.0-3.0); HEMATOCRIT 37.8 % (42.0-52.0); HEMOGLOBIN 12.2 gm/dL (14.0-18.0); LYMPHOCYTES 3.7 % (24.0-44.0); MCH 27.4 pg (26.0-34.0); MCHC 32.3 g/dL (28.0-37.0); MCV 84.5 fL (80.0-100.0); MONOCYTES 2.4 % (1.0-8.0); PLATELET COUNT 234 thou/uL (150-400); POLYS 93.6 % (36.0-66.0); RBC 4.47 mil/uL (4.50-6.00); RDW 15.8 % (10.5-14.5); WBC 10.6 thou/uL (4.0-11.0)
[2020-04-07 19:27] LABS: CALCIUM 8.5 mg/dL (8.5-10.1); CREATININE 1.5 mg/dL (0.7-1.3); POTASSIUM 5.1 mmol/L (3.5-5.1)
[2020-04-07 21:30] VITALS: BP 112/52
[2020-04-07 22:30] VITALS: BP 100/39
[2020-04-08 00:15] VITALS: BP 115/76
--- NOTE | 2020-04-08 02:01 | NUR ---
ASSESSED AT START OF SHIFT. POST OP PT. REPORT RECEIVED FROM DAY NURSE. ADMISSION DONE AND PT ORIENTED TO THE UNIT. IV INTACT WITH IVF AND GEOPHYSICS SCIENTIST PUMP. PT RATES PAIN 3/10. ON A [place] MONITOR AND 4L OF 02. SCD'S IN PLACE. BSG CHECKED WITH COVERAGE. EVENING MEDS GIVEN AND PT AZUL IT WELL. FOLLEY INTACT. PT DENIES N/V. NIGHT TIME SNACK PROVIDED. FALL PREC IN PLACE AND CALL LIGHT IN REACH WILL CONT WITH POC.
[2020-04-08 03:11] VITALS: BP 133/68
[2020-04-08 06:31] LABS: ABSOLUTE NEUTROPHILS 8.4 thou/uL (1.4-8.2); BASOPHILS 0.1 % (0.0-2.0); HEMATOCRIT 34.8 % (42.0-52.0); HEMOGLOBIN 11.2 gm/dL (14.0-18.0); MCH 27.6 pg (26.0-34.0); MCHC 32.3 g/dL (28.0-37.0); MCV 85.4 fL (80.0-100.0); MONOCYTES 9.4 % (1.0-8.0); PLATELET COUNT 215 thou/uL (150-400); POLYS 82.5 % (36.0-66.0); RBC 4.07 mil/uL (4.50-6.00); RDW 15.9 % (10.5-14.5); WBC 10.2 thou/uL (4.0-11.0)
[2020-04-08 06:32] LABS: CALCIUM 7.9 mg/dL (8.5-10.1); CREATININE 1.8 mg/dL (0.7-1.3)
[2020-04-08 08:30] VITALS: BP 138/59
--- NOTE | 2020-04-08 10:26 | NUR ---
Case opened to follow for dc planning s/p lumbar lami. Pt is a&ox4 and indicates that he lives with his son and grandson. He has a ramp to enter the home and he stays on the main level. He has home o2/cpap per rené and uses it prn. He walks with a cane but has a rwalker and w/c if needed. His son has taken him to outpt therapy at [facility] in the past and he is hoping to do this again at [facility]. He is open to HH if therapy deems more appropriate and he has had [facility] in 2017. He anticipates dc in a couple of days. Cm role introduced. No dc planning needs anticipated at this time. Will follow along should HH referral be indicated.
[2020-04-08 19:27] VITALS: BP 118/39
--- NOTE | 2020-04-08 20:04 | NUR ---
PT CARE ASSUMED AT 0700. A&Ox4. UP TO THE BEDSIDE FOR ALL MEALS. MINIMAL COMPLAINTS OF PAIN, WELL TOLERATED WITH PAINMEDICATION ON BOARS. AYAD QUEVEDO'D. URINATED 200CC. ACHS WITH LOW SLIDING SCALE. 4L O2 WITH 2-4 AT HOME. CPAP IN ROOM. IV PATENT WITH NO REDNESS OR EDEMA, FLUIDS INFUSING. NO COMPLAINTS OF N/V. FALL PROTOCOL IN PLACE. CALL LIGHT IN REACH. WILL CONTINUE TO MONITOR.
--- NOTE | 2020-04-09 03:32 | NUR ---
ASSESSED AT START OF SHIFT. OXYCODONE GIVEN FOR PAIN CONTROL. DENIES N/V. IV INTACT WITH IVF. URINAL AT BEDSIDE. BSG CHECKED WITH INSULIN COVERAGE. PT ON CPAP AT NIGHT.SCD'S INTACT, FALL PRECAUTIONS MAINTAINED AND CALL LIGHT IN REACH. WILL CONT WITH POC TILL EOS.
[2020-04-09 06:02] LABS: HEMATOCRIT 31.7 % (42.0-52.0); HEMOGLOBIN 10.3 gm/dL (14.0-18.0); MCHC 32.5 g/dL (28.0-37.0); PLATELET COUNT 195 thou/uL (150-400); RBC 3.68 mil/uL (4.50-6.00); RDW 15.8 % (10.5-14.5); WBC 8.2 thou/uL (4.0-11.0)
[2020-04-09 06:22] LABS: CALCIUM 7.9 mg/dL (8.5-10.1); CREATININE 1.6 mg/dL (0.7-1.3); POTASSIUM 4.6 mmol/L (3.5-5.1)
[2020-04-09 07:42] LABS: ANISOCYTOSIS SLIGHT; PLATELET ESTIMATE NORMAL
[2020-04-09] MEDS ORDERED: ROBAXIN 750 MG750 MG PO (11:18)
[2020-04-09] MEDS ORDERED: MIRALAX119 GM PO (11:18)
[2020-04-09] MEDS ORDERED: COLACE100 MG PO (11:18)
[2020-04-09] MEDS ORDERED: PERCOCET 10-321 EACH PO (11:19)
[2020-04-09 12:14] VITALS: BP 123/66
[2020-04-09 12:37] VITALS: BP 123/66
--- NOTE | 2020-04-09 13:07 | NUR ---
ON-GOING ASSESSMENT: CM REVIEWED CHART AND SPOKE WITH PATIENT. PT HAS ORDERS TO DISCHARGE HOME TODAY WITH HOME HEALTH. PT HAD [facility] IN THE PAST AND AGREEABLE TO USE [facility]. CM FAXED REFERRAL AND SPOKE WITH INTAKE WHO REPORTS THEY CAN ACCEPT PATIENT FOR HOME HEALTH. CM FAXED DISCHARGE ORDERS TO [facility] AND CONFIRMED THEY RECEIVED THEM. PT REPORTS HE HAS OXYGEN AT HOME AND HIS WALKER AND REPORTS NO FURTHER NEEDS FROM CM. PT WILL DISCHARGE HOME TODAY WITH [facility].
--- NOTE | 2020-04-09 15:20 | NUR ---
Assumed care of pt. at 0700. Pt. is calm and cooperative. Pt. was able to walk with walker with PT. Pt. experienced minor dizziness after walk, problem was resolved in a matter of minutes. Pt. received discharge clearance from PT/OT and physician. Discharge teaching performed. Discharge orders received, pt. discharged with homehealth and left with son and all belongings.
--- NOTE | 2020-04-10 11:50 | O ---
[facility] [place] [address] OPERATIVE REPORT Name: CHUCKIE CONTRERAS Room #: 435-P [facility] M.R.#: [id number] Admission: 04/07/20 Attend Phys: Osei Patel MD Discharge: 04/09/20 Date of : 48 Report #: [id number] THIS REPORT FOR: cc: Estuardo Paul,Osei Rosas MD ~ CC: Osei Paul DATE OF SERVICE: 04/07/2020 PREOPERATIVE DIAGNOSES: L2-S1 degenerative disk disease, recurrent spinal stenosis, foraminal stenosis, radiculopathy, neurogenic claudication of the spinal nerve roots and low back pain. The patient was bilateral laminectomy, partial facetectomy and neural foraminotomy of L2, bilateral laminectomy with partial facetectomy and neural foraminotomy of L3, bilateral laminectomy with partial facetectomy and neural foraminotomy of L4, bilateral laminectomy with partial facetectomy and neural foraminotomy of L5 bilateral laminectomy with partial facetectomy and neural foraminotomy of S1, levels L2, L3 and L4 were redo. The patient also had a large ganglion cyst densely adherent to the dural sac at the left L4-L5 level that required considerable additional dissection to free and resected. Finally, a complex multiple layer would be appropriate as the patient weighed 325 pounds, which presented problems with fluoroscopic visualization for localization of the incision. It doubled and tripled the exposure time and the time to close. POSTOPERATIVE DIAGNOSES: L2-S1 degenerative disk disease, recurrent spinal stenosis, foraminal stenosis, radiculopathy, neurogenic claudication of the spinal nerve roots and low back pain. The patient was bilateral laminectomy, partial facetectomy and neural foraminotomy of L2, bilateral laminectomy with partial facetectomy and neural foraminotomy of L3, bilateral laminectomy with partial facetectomy and neural foraminotomy of L4, bilateral laminectomy with partial facetectomy and neural foraminotomy of L5 bilateral laminectomy with partial facetectomy and neural foraminotomy of S1, levels L2, L3 and L4 were redo. The patient also had a large ganglion cyst densely adherent to the dural sac at the left L4-L5 level that required considerable additional dissection to free and resected. Finally, a complex multiple layer would be appropriate as the patient weighed 325 pounds, which presented problems with fluoroscopic visualization for localization of the incision. It doubled and tripled the exposure time and the time to close. SURGEON: Osei Patel MD. NEUROLOGY SPECIALIST SURGEON: KEHINDE Villagomez. ANESTHESIA: General via endotracheal tube. [address] [address] OPERATIVE REPORT Name: DIANECHUCKIE LEROY Room #: 435-P [facility] M.R.#: [id number] Admission: 04/07/20 Attend Phys: Osei Patel MD Discharge: 04/09/20 Date of : 48 Report #: [id number] INDICATIONS: The patient has had intractable back and bilateral leg pain in both radicular and neurogenic claudicant pattern. He had fatigability of the legs, inability to stand, walk and perform activities of daily living. The patient had proved refractory to multimodality conservative management. He had undergone previous surgery for decompression that did not last. The patient understood the risks of surgery to be , DVT, pulmonary embolism, paraplegia, loss of bowel and bladder function, loss of sexual function, possibility of bleeding, bleeding requiring transfusion, transfusion attendant risks of AIDS and hepatitis infection, instability, the need for revision, prolonged hospital stay, dural leak, spinal headache, infection and again he requested we proceed. DESCRIPTION OF PROCEDURE: The patient was brought to the operating room, administered general anesthesia via endotracheal tube. The patient was positioned on the Marcel table in the prone position with all bony prominences padded appropriately. Care was taken to ensure the shoulder is not abducted more than 90 degrees. The elbow is flexed more than 90 degrees. There was no undue pressure on the cubital or carpal canals. The area of the anterior superior iliac spine was well padded to protect the lateral femoral cutaneous nerve. Hips and knees were well padded. There was no pressure on the dorsum of the feet. The patient's low back was defatted with alcohol, visualized under fluoroscopy and we attempted to harish the pedicles, but they just could not be visualized. We could see the pelvic inlet and at one point, thought we could see the iliac crest, but the patient's panniculus was approximately 2 feet, 3 feet in and prevented visualization in the AP plane. We made our best estimate for an incision. Actually, I made a smaller incision than normal, carried it down and then exposed the spinous processes and got a lateral view with clamps affixed to the spinous process and that eventually gave us our level and then I exposed from a mid level vertebrae until we had a subperiosteal dissection of L2 to the sacrum being careful not to inadvertently penetrate where he had been previously decompressed at the L2-L3 and L3-L4 levels. When complete, we had the spine completely exposed. We cleaned the inner laminar spaces, with heavy bowl curette and a Leksell rongeur, we removed the spinous processes of L2 through S1 were present. Facet capsules were maintained at all levels at all times. We continued the dissection by removal of the spinous processes from L2-S1 and then we used a high speed drill to thin the lamina of L2 through S1 to the anterior cortex, being careful again to not inadvertently penetrate where there was unprotected scarred dura. Eventually, we had the entire aspect thinned and the anticipated width and length necessary for a wide decompressive laminectomy redo at L2, redo L3, redo L4 and then L5 and S1. We started with a micro curette under loupe magnification headlight illumination and dissected the scared dura or the ligamentum were present from the undersurface of the lamina and then the lamina was resected. We then resected as much intervening ligamentum flavum as possible and then the subsequent lamina until we had a wide central laminectomy redo L2, redo L3, redo L4, L5 and S1. [address] [address] OPERATIVE REPORT Name: CHUCKIE CONTRERAS SELENA Room #: 435-P [facility] M.R.#: [id number] Admission: 04/07/20 Attend Phys: Osie Patel MD Discharge: 04/09/20 Date of : 48 Report #: [id number] We then started cephalad on the right and began widening, on the right side in particular scarred dura from the undersurface of the lamina or ligament before resection until we had a wide decompressive laminectomy to the lateral border of the spinal sac and this was accomplished on the right at L2, L3, L4, L5 and S1. We then performed neural foraminal decompressions of the L2, L3, L4, L5 and S1 nerve roots. We then moved to the left side, which was significantly more scar at the L4-L5 level and the location of a ganglion that was densely adherent to the dural sac just above the level of the disk. This was dissected free and then resected. It was densely adherent and scarred to the dural sac and takeoff of the nerve root. When complete, we could see the lateral border of the spinal sac and then we performed the neural foraminal decompressions redo at L2, L3 and L4 and virgin at L4 and L5. When complete, all nerve roots egressed without any encumbrance whatsoever. Spinal sac was completely decompressed. We copiously irrigated with a liter of antibiotic-containing solution. We placed pledgets of thrombin-soaked Gelfoam over the spinal canal. We placed a gram of vancomycin in the wound. We closed the deep fascial layer with 0 Ethibond in [id number] interrupted fashion, deep subcutaneous with 0 Vicryl and the skin with stainless steel ania, dressed with Xeroform, sterile dressing, sponges and a bioclusive. The patient tolerated the procedure well. He was physiologically stable throughout. Final blood loss was 100 mL and his decompression actually went technically very well considering the size of the patient and the amount of redoing scar. The patient was being transported to recovery room for closer neurovascular observation, continue prophylactic antibiotics, serial neurovascular exams and discharge to the floor when stable. <ELECTRONICALLY SIGNED> By: Osei Patel MD 04/10/20 1150 [id number] Osei Patel MD /nt
== END 2020-04-09 13:50 | disposition home health service (06) | DRG 518 ==
LOC: ADMC 07:47 → TBA 10:15 → 4S 10:15 → ADMC 10:39 → 4S 17:35
PROVIDERS: Hospitalist
PROC: 5A09357 Assistance with Respiratory Ventilation, Less than 24 Consecutive Hours, Continuous Positive Airway Pressure (ICD-10-PCS; principal; 2020-04-07)
PROC: 01NB0ZZ Release Lumbar Nerve, Open Approach (ICD-10-PCS; 2020-04-07)
PROC: 00NY0ZZ Release Lumbar Spinal Cord, Open Approach (ICD-10-PCS; 2020-04-07)
PROC: 01NR0ZZ Release Sacral Nerve, Open Approach (ICD-10-PCS; 2020-04-07)
PROC: 5A09357 Assistance with Respiratory Ventilation, Less than 24 Consecutive Hours, Continuous Positive Airway Pressure (ICD-10-PCS; 2020-04-08)
DX: M48.062 Spinal stenosis, lumbar region with neurogenic claudication (principal); J96.01 Acute respiratory failure with hypoxia; J96.11 Chronic respiratory failure with hypoxia; M54.16 Radiculopathy, lumbar region; E78.5 Hyperlipidemia, unspecified; N18.30 Chronic kidney disease, stage 3 unspecified; G47.33 Obstructive sleep apnea (adult) (pediatric); E11.22 Type 2 diabetes mellitus with diabetic chronic kidney disease; Z96.653 Presence of artificial knee joint, bilateral; E11.51 Type 2 diabetes mellitus with diabetic peripheral angiopathy without gangrene; G25.81 Restless legs syndrome; I12.9 Hypertensive chronic kidney disease with stage 1 through stage 4 chronic kidney disease, or unspecified chronic kidney disease; J44.9 Chronic obstructive pulmonary disease, unspecified; Z83.3 Family history of diabetes mellitus; Z83.6 Family history of other diseases of the respiratory system; Z88.8 Allergy status to other drugs, medicaments and biological substances; Z90.49 Acquired absence of other specified parts of digestive tract; Z86.711 Personal history of pulmonary embolism; Z85.51 Personal history of malignant neoplasm of bladder; Z87.891 Personal history of nicotine dependence
CPT/HCPCS: 10195; 50010; 50101; 50402; 50850; 51412; 51878; 56524; 56529; 62110; 62900; 70005

== ENCOUNTER → 2020-05-11 | Outpatient (CLI) | payer OTHER ==
[~2020-05-11] MED LIST changes: +MIRALAX119 GM PO; +ROBAXIN 750 MG750 MG PO
== END ==
LOC: SJCVC 13:56
PROVIDERS: ATTEND Internal Medicine Cardiovascular Disease
DX: R94.31 Abnormal electrocardiogram [ECG] [EKG] (principal); R00.1 Bradycardia, unspecified; I10 Essential (primary) hypertension; I25.10 Atherosclerotic heart disease of native coronary artery without angina pectoris; E78.00 Pure hypercholesterolemia, unspecified; Z79.899 Other long term (current) drug therapy; Z87.891 Personal history of nicotine dependence

== ENCOUNTER → 2020-05-26 | Outpatient (CLI) | payer OTHER | LOC: SJCVCIMAG 07:31 | PROVIDERS: ATTEND Internal Medicine Cardiovascular Disease | DX: R00.0 Tachycardia, unspecified (principal); I49.3 Ventricular premature depolarization; I10 Essential (primary) hypertension; I25.10 Atherosclerotic heart disease of native coronary artery without angina pectoris; E78.00 Pure hypercholesterolemia, unspecified; Z79.899 Other long term (current) drug therapy; Z87.891 Personal history of nicotine dependence ==

== ENCOUNTER 2020-08-20 10:22 | Inpatient (IN) | payer OTHER ==
[~2020-08-20] VITALS: Ht 175.3 cm; Wt 140.6 kg
[2020-08-20 10:31] VITALS: BP 142/62
[2020-08-20 15:26] LABS: ABSOLUTE NEUTROPHILS 4.3 thou/uL (1.4-8.2); BASOPHILS 0.5 % (0.0-2.0); HEMATOCRIT 35.8 % (42.0-52.0); HEMOGLOBIN 11.5 gm/dL (14.0-18.0); LYMPHOCYTES 23.7 % (24.0-44.0); MCHC 32.1 g/dL (28.0-37.0); MCV 80.9 fL (80.0-100.0); MONOCYTES 12.8 % (1.0-8.0); PLATELET COUNT 278 thou/uL (150-400); RBC 4.42 mil/uL (4.50-6.00); RDW 16.3 % (10.5-14.5); WBC 7.1 thou/uL (4.0-11.0)
[2020-08-20 15:34] LABS: ANION GAP 11 mmol/L (7-16); BUN 22 mg/dL (7-18); CALCIUM 8.9 mg/dL (8.5-10.1); CHLORIDE 106 mmol/L (98-107); CO2 25 mmol/L (21-32); CREATININE 1.4 mg/dL (0.7-1.3); GLUCOSE 91 mg/dL (74-106); POTASSIUM 4.4 mmol/L (3.5-5.1); SODIUM 142 mmol/L (136-145)
[2020-08-20 15:44] LABS: ALBUMIN 3.4 g/dL (3.4-5.0); APTT 22.7 Seconds (24.5-32.8); DIRECT BILIRUBIN 0.1 mg/dL (<0.1-0.2); PROTIME 10.9 Seconds (9.3-11.4); SGOT 20 U/L (15-37); SGPT 22 U/L (16-63); TOTAL BILIRUBIN 0.5 mg/dL (0.2-1.0); TROPONIN-I <0.06 ng/mL (<0.06)
[2020-08-20 17:58] VITALS: BP 126/53
[2020-08-20 17:59] VITALS: BP 117/48
[2020-08-20 19:00] VITALS: BP 157/80
[2020-08-21 04:16] VITALS: BP 147/63
[2020-08-21 05:24] LABS: CALCIUM 8.7 mg/dL (8.5-10.1); CREATININE 1.6 mg/dL (0.7-1.3); POTASSIUM 4.4 mmol/L (3.5-5.1)
[2020-08-21 05:36] LABS: HEMATOCRIT 35.1 % (42.0-52.0); HEMOGLOBIN 11.2 gm/dL (14.0-18.0); MCHC 31.8 g/dL (28.0-37.0); MCV 81.6 fL (80.0-100.0); RBC 4.3 mil/uL (4.50-6.00); RDW 16.5 % (10.5-14.5); WBC 7.2 thou/uL (4.0-11.0)
[2020-08-21 07:34] VITALS: BP 158/89
[2020-08-21] MEDS ORDERED: CALCIUM500 MG PO (10:23)
[2020-08-21] MEDS ORDERED: VITAMIN E1000 UNIT PO (10:24)
[2020-08-21 12:06] VITALS: BP 158/89
[2020-08-21 13:10] VITALS: BP 158/89
== END 2020-08-21 13:31 | disposition home health service (06) | DRG 914 ==
LOC: ER 10:22 → EROBS 16:07 → 4S 16:07
PROVIDERS: Emergency Medicine; ADMIT Hospitalist; ATTEND Hospitalist
DX: S79.912A Unspecified injury of left hip, initial encounter (principal); Z68.42 Body mass index [BMI] 45.0-49.9, adult; Z96.653 Presence of artificial knee joint, bilateral; I10 Essential (primary) hypertension; E78.5 Hyperlipidemia, unspecified; G25.81 Restless legs syndrome; E11.51 Type 2 diabetes mellitus with diabetic peripheral angiopathy without gangrene; J44.9 Chronic obstructive pulmonary disease, unspecified; E66.9 Obesity, unspecified; M47.896 Other spondylosis, lumbar region; R26.2 Difficulty in walking, not elsewhere classified; E11.40 Type 2 diabetes mellitus with diabetic neuropathy, unspecified; Z87.312 Personal history of (healed) stress fracture; Z90.49 Acquired absence of other specified parts of digestive tract; Z86.711 Personal history of pulmonary embolism; Z85.51 Personal history of malignant neoplasm of bladder; Z88.8 Allergy status to other drugs, medicaments and biological substances; W18.39XA Other fall on same level, initial encounter; Y93.89 Activity, other specified; Y92.89 Other specified places as the place of occurrence of the external cause; Y99.8 Other external cause status; Z87.891 Personal history of nicotine dependence; Z20.822 Contact with and (suspected) exposure to COVID-19
CPT/HCPCS: 10195

== ENCOUNTER → 2020-08-26 | Outpatient (CLI) | payer OTHER ==
[~2020-08-26] MED LIST changes: +CALCIUM500 MG PO; +TYLENOL EXTRA500 MG PO; +VITAMIN E1000 UNIT PO; +ZESTRIL20 MG PO
== END ==
LOC: CAT 08:38
PROVIDERS: ATTEND Internal Medicine
DX: Z12.2 Encounter for screening for malignant neoplasm of respiratory organs (principal); J43.9 Emphysema, unspecified; M47.815 Spondylosis without myelopathy or radiculopathy, thoracolumbar region; N28.1 Cyst of kidney, acquired; J98.4 Other disorders of lung; E27.8 Other specified disorders of adrenal gland; Z87.891 Personal history of nicotine dependence

== ENCOUNTER 2020-08-28 07:53 | Observation (INO) | payer OTHER ==
[~2020-08-28] VITALS: Ht 152.4 cm; Wt 134.7 kg
[~2020-08-28 07:53] MED LIST changes: -ZESTRIL20 MG PO
[2020-08-28 08:40] VITALS: BP 144/64
--- NOTE | 2020-08-28 11:51 | O ---
[facility] [place] [address] OPERATIVE REPORT Name: CHUCKIE CONTRERAS Room #: 150-3 [facility] M.R.#: [id number] Admission: 08/28/20 Attend Phys: Baldomero Ruiz MD Discharge: Date of : 48 Report #: [id number] THIS REPORT FOR: cc: Estuardo Paul,Estuardo Dalal,Baldomero Rhoades MD ~ DATE OF SERVICE: 08/28/2020 PREOPERATIVE DIAGNOSIS: Nondisplaced fracture, left femoral neck. POSTOPERATIVE DIAGNOSIS: Nondisplaced fracture, left femoral neck. PROCEDURE: Percutaneous screw stabilization of left femoral neck fracture. SURGEON: Baldomero Ruiz MD INDICATIONS: This morbidly obese 70-year-old gentleman had a previous right hip injury in the past, which was negative on x-rays and CT scan, but positive on MRI for a nondisplaced stress fracture. His symptoms there persisted and percutaneous screw fixation was performed with good result. Recently, he has had a new fall and now complaining of similar left hip pain. Once again x-rays and CT scan have not revealed evidence of fracture, but MRI study confirms bony edema and evidence of a femoral neck fracture, which is nondisplaced. Given this presentation and his previous history and his morbid obesity, I feel surgical stabilization with percutaneous screw fixation is most appropriate. DESCRIPTION OF PROCEDURE: The patient was taken to the operating room where he was placed under general anesthesia. Prophylactic intravenous antibiotics were administered. He was positioned on the fracture table for C-arm visualization. The left femoral neck fracture appears to be in anatomic alignment. The lateral aspect of the hip and thigh were meticulously prepped and draped. A small skin incision was made and guidewires were placed, spread evenly through the femoral neck extending up to the subchondral region of the femoral head. Four cannulated screws were placed using the 7.0 screw size. These were advanced to about 6-8 mm below the subchondral bone. Each seemed to have satisfactory purchase. The fracture remains in anatomic alignment. The wound was then copiously irrigated. Good hemostasis was established. The skin incision was closed with 2-0 Vicryl and skin ania. A sterile dressing was applied. The patient was awakened and returned to recovery room in good condition. <ELECTRONICALLY SIGNED> By: Baldomero Ruiz MD 08/28/20 1151 1135 1145 Baldomero Ruiz MD /nt
[2020-08-28 17:10] VITALS: BP 144/82
[2020-08-28] MEDS ORDERED: ZESTRIL20 MG PO (18:10)
--- NOTE | 2020-08-28 18:39 | NUR ---
Assigned care of pt at 0700. Pt a&ox4. Admission completed. Dressing c/d/i. Hospital doctor consulted. Pt wears Cpap at night. Family brought pt's cpap from home. 2L O2. Bird light within reach. Fall precautions in place. Will give report to hs RN.
[2020-08-28 19:35] VITALS: BP 154/78
--- NOTE | 2020-08-29 00:27 | NUR ---
ASSUMED PT CARE AT 1900.PT ALERT,CALM AND COPERATIVE WITH CARE.PT C/O PAIN ON HIS L HIP,MANAGED WITH PO AND IV MED.DRSG TO HIS L HIP C/D/I.ICE PACK TO THE SITE.PT SLEEPING ON HIS BED AT THIS TIME WITH HIS CPAP IN PLACE.CONT PULSE OX IN PLACE.CALL LIGHT WITHIN REACH.
[2020-08-29 03:23] VITALS: BP 146/74
[2020-08-29 04:33] LABS: HEMATOCRIT 33.9 % (42.0-52.0); HEMOGLOBIN 10.7 gm/dL (14.0-18.0); MCH 26.1 pg (26.0-34.0); MCHC 31.6 g/dL (28.0-37.0); MCV 82.5 fL (80.0-100.0); RBC 4.11 mil/uL (4.50-6.00); RDW 16.3 % (10.5-14.5); WBC 9.4 thou/uL (4.0-11.0)
[2020-08-29 05:10] LABS: CALCIUM 8.2 mg/dL (8.5-10.1); CREATININE 1.4 mg/dL (0.7-1.3); POTASSIUM 4.2 mmol/L (3.5-5.1)
[2020-08-29 07:45] VITALS: BP 166/70
--- NOTE | 2020-08-29 13:35 | H ---
[facility] [place] [address] HISTORY AND PHYSICAL Name: CHUCKIE CONTRERAS Room #: 436-P [facility] [place]#: [id number] Admission: 08/28/20 Attend Phys: Baldomero Ruiz MD Discharge: Date of : 48 Report #: [id number] THIS REPORT FOR: cc: Estuardo Paul Steven F. DO Clymer,Baldomero Rhoades MD ~ DATE OF SERVICE: 08/28/2020 CHIEF COMPLAINT: Left femoral neck fracture. HISTORY OF PRESENT ILLNESS: This morbidly obese 70-year-old gentleman presents after a recent fall with complaints of left hip pain. He has been ambulatory at home with a walker, but with ongoing hip discomfort. His previous history is notable for a similar injury on the right side, which was found to be consistent with a nondisplaced femoral neck fracture and benefit from surgical stabilization with percutaneous screw fixation. We have evaluated the new left injury, also with x-rays, CT scan and MRI. The x-rays and CT did not reveal clear evidence of fracture; however, MRI study does reveal evidence of a nondisplaced, slightly impacted femoral neck fracture. Given these findings and his history, we have elected to go ahead with hospital admission and surgical repair with percutaneous screw fixation. His previous medical history is notable for the right femoral neck fracture and notable for chronic obesity. He has also had a history of deep venous thrombosis and pulmonary embolus about 10 years ago and was previously on Coumadin therapy that was discontinued some years ago and he has been stable subsequently. He does have type 2 diabetes. His current medications include aspirin, vitamin C, fish oil, Januvia, lisinopril 40 mg every day, simvastatin 20 mg every day, glipizide 10 mg every day, metformin 1000 mg every day. PHYSICAL EXAMINATION: GENERAL: He is quite heavy and deconditioned with current weight of about 290 pounds. He is ambulating with a walker with partial weightbearing on the left side and complains of some left hip pain. LUNGS: Clear. CARDIOVASCULAR: Reveals a regular rate and rhythm without significant murmurs. ABDOMEN: Morbidly obese, soft and nontender. EXTREMITIES: The upper extremities reveal good movement of the shoulder, elbow and wrist without much pain. Neurologic status, the upper extremities appears to be normal. The neck and back reveal satisfactory alignment and range of motion with only mild generalized discomfort suggestive of some mild degenerative change. The right lower extremity reveals an old surgical scar at the lateral hip consistent with percutaneous screw fixation of a femoral neck fracture. He has good movement of the hip with mild crepitus and minimal discomfort consistent with mild degenerative change. There is some right knee [address] [address] HISTORY AND PHYSICAL Name: CHUCKIE CONTRERAS Room #: 436-P [facility] [place]#: [id number] Admission: 08/28/20 Attend Phys: Baldomero Ruiz MD Discharge: Date of : 48 Report #: [id number] discomfort consistent with a previous right knee surgery, but acceptable alignment, range of motion. The left lower extremity also reveals satisfactory alignment and range of motion of the left hip, but there is more subjective discomfort extending into the groin consistent with possible femoral neck injury. There is no obvious deformity with no rotational abnormality nor shortening. The lower leg, foot, and ankle appear to be normal with exception of some generalized edema and obesity. X-rays have revealed no obvious fractures about the pelvis and left hip. A CT scan also revealed no obvious new fractures; however, MRI study confirms evidence of a left femoral neck fracture with bony edema, but without significant displacement. IMPRESSION: Left femoral neck fracture. Given these findings and his previous history with similar problems on the right side, I feel surgical repair and stabilization of the left femoral neck fracture is most appropriate. We have elected to go ahead with hospital admissions and surgery today on 08/28/2020. I would anticipate advanced activity with a walker and protected weightbearing. The patient notes that he is safe at home and has assistance as needed and probably can go back to his own home for gradually advancing activity. <ELECTRONICALLY SIGNED> By: Baldomero Ruiz MD 08/29/20 1335 1141 1159 Baldomero Ruiz MD /nt
[2020-08-29] MEDS ORDERED: XARELTO10 MG PO (13:37)
[2020-08-29] MEDS ORDERED: NORCO 10-325 T1 EACH PO (13:38)
--- NOTE | 2020-08-29 14:45 | NUR ---
Assumed care of pt this morning. Pt was A&O x 4, skin w/d/p and no complaints at this time. Dressings C/D/I with no leakage or s/s. Lung sounds are clear upper biat and deminished in lower lobes. Blood sugar was within range for no insulin. SCDs on calf bilat. Pt ate 100% breakfast and lunch. Pt ambulated to the comode with walker and only toe touch weight on the left leg.
[2020-08-29 18:15] VITALS: BP 146/81
[2020-08-29 19:30] VITALS: BP 171/84
--- NOTE | 2020-08-30 00:34 | NUR ---
ASSESSED AT START OF SHIFT. PT A&OX4. UP WITH ASSISTX1 TO THE BSC. URINAL AT BEDSIDE. ON 2L OF O2 AND WEARS CPAP AT HS. DRESSING ON LEFT HIP C/D/I. ICE PACK PROVIDED. SCD'S INTACT. BSG CHECKED AND INSULIN PROVIDED. FALL PREC IN PLACE AND CALL LIGHT AT REACH WILL CONT TO MONITOR.
[2020-08-30 03:00] VITALS: BP 145/76
[2020-08-30 07:10] VITALS: BP 130/70
--- NOTE | 2020-08-30 11:28 | NUR ---
Assumed care of pt at 0700. Pt a&ox4. Pain controlled with prn pain meds. Dressing c/d/i. On 2L O2. Up to the chair this am with SBA. Call light within reach. Fall precautions in place. Will continue to monitor.
[2020-08-30 16:30] VITALS: BP 149/79
--- NOTE | 2020-08-30 17:16 | NUR ---
ASSUMED PT CARE AROUND 1300. PT ALERT X ORIENTED X 4.STANDBY ASSIST WITH WALKER. TOE TOUCH WT BEARING. ACHS. 2L/O2/N AND CPAP AT NIGHT. SURGICAL DRESSING ON LEFT HIP. IV RT FA AND SALINE LOCKED. FALL PRECT IN PLACE. CALL LIGT WITHIN REACH AND PT WILL CALL FOR HELP. SHIFT REPORT GIVEN TO JAGRTUI DOTY). WILL CONT TO MONITOR.
[2020-08-30 20:44] VITALS: BP 147/82
[2020-08-30 23:19] VITALS: BP 147/82
[2020-08-31 05:49] LABS: HEMATOCRIT 35.5 % (42.0-52.0); HEMOGLOBIN 11.3 gm/dL (14.0-18.0); MCH 26.3 pg (26.0-34.0); MCHC 31.8 g/dL (28.0-37.0); MCV 82.6 fL (80.0-100.0); RBC 4.29 mil/uL (4.50-6.00); RDW 16.9 % (10.5-14.5); WBC 8.8 thou/uL (4.0-11.0)
[2020-08-31 06:07] LABS: CALCIUM 8.6 mg/dL (8.5-10.1); CREATININE 1.9 mg/dL (0.7-1.3); POTASSIUM 4.4 mmol/L (3.5-5.1)
--- NOTE | 2020-08-31 06:43 | NUR ---
PT AOX4. PT REPORTS 8/10 PAIN IN LEFT HIP. DRESSING TO LEFT HIP CLEAN, DRY AND INTACT. PT RECEIVING PRN PO OXYCODONE Q4HR WITH PRN PO NORCO Q4HR AND PRN IV MORPHINE Q1HR AVAILABLE. PT DENIES SOB AT REST, REPORTS SOB WITH EXERTION WHILE USING 1-2L O2 VIA NC, WEARS CPAP AT HS. PT TOLERATING PO INTAKE OF FLUIDS AND REGULAR DIET WITHOUT ISSUE. PT DENIES NAUSEA AND EMESIS. PT VOIDING PER URINAL. PT RESTING IN BED THROUGHOUT SHIFT, FREQUENT REPOSITIONING ENCOURAGED, PT NOTED TO SHIFT INDEPENDENTLY REQUIRING MINIMIAL ASSISTANCE. PT ENCOURAGED TO NOTIFY STAFF FOR ALL NEEDS, CALL LIGHT WITHIN REACH, BED ALARM ON, BED IN LOWEST POSITION, FREQUENT MONITORING WILL CONTINUE.
[2020-08-31 07:20] VITALS: BP 137/66
--- NOTE | 2020-08-31 08:33 | NUR ---
ASSESSMENT: CM REVIEWED CHART. PT WAS ADMITTED DUE TO LEFT FEMORAL NECK FX AND HAD SCREW FIXATION. PT LIVES IN A HOUSE WITH HIS SON MAHAMED AND GRANDSON. PT HAS A RAMP TO ENTER AND NO STEPS HE HAS TO USE ONCE INSIDE. PT HAS A WALKER, WHEELCHAIR, CANE, AND COMMODE AT HOME. PT REPORTS HAVING 2L OXYGEN PRN THROUGH [facility] CPAP MACHINE. PT RECENTLY HAD [facility] AND PREFERS TO USE THEM AGAIN. CM DISCUSSED OPTION FOR SNF BUT PT STATES HAVING A BAD EXPERIENCE THERE AND REFUSES TO GO TO SNF AND WISHES TO RETURN HOME. PT REQUESTING REFERRAL TO [facility] . CM FAXED REFERRAL. CM ALSO SPOKE WITH SON MAHAMED WHO IS AGREEABLE WITH PLAN. CM WILL CONTINUE TO FOLLOW TO ASSIST NEEDED.
[2020-08-31 08:37] VITALS: BP 147/82
--- NOTE | 2020-08-31 11:09 | NUR ---
ASSUMED PT CARE THIS AM. PT VSS, A&OX4. PT PLEASANT AND MAKES NEEDS KNOWN. ABLE TO MOVE SELF IN BED. TAKES MEDS WELL. DRESSING INTACT ON HIP. REPORTING NO NUMBNESS OR TINGLING. USING A URINAL AND AMBULATORY TO THE BEDSIDE COMMODE. OXYGEN TAKEN DOWN TO 1L NC. IV PATENT, SALINE LOCKED. PAIN REPORTED AT 5/10, RESPONDING WELL TO PAIN MEDS GIVEN PER EMAR. FALL PRECAUTIONS IN PLACE.
[2020-08-31 12:38] VITALS: BP 147/82
--- NOTE | 2020-09-01 12:43 | D ---
[facility] [place] [address] DISCHARGE SUMMARY Name: CHUCKIE CONTRERAS Room #: 436-P [facility]#: [id number] Admission: 08/28/20 Attend Phys: Baldomero Ruiz MD Discharge: 08/31/20 Date of : 48 Report #: [id number] THIS REPORT FOR: cc: Estuardo Paul,Estuardo Dalal,Baldomero Rhoades MD ~ DATE OF SERVICE: 08/31/2020 FINAL DIAGNOSIS: Left femoral neck fracture. OPERATION PROCEDURES: Percutaneous screw stabilization, left femoral neck fracture. HISTORY OF PRESENT ILLNESS: This heavy 70-year-old gentleman had a minor fall and developed pain at the left hip. MRI study confirms a nondisplaced femoral neck fracture. He has had similar problems in the opposite side, which required percutaneous screw stabilization and did quite nicely. We have discussed treatment options and he has elected to go ahead with surgical repair on the left side. HOSPITAL COURSE: The patient was admitted and taken to the operating room on 08/28. He underwent percutaneous screw stabilization of the left femoral neck fracture, which appears to be in anatomic position. He tolerated this well. Postoperatively, he did have some generalized hip discomfort and is rather weak with difficult ambulation, particularly given his morbid obesity. Given this, he has participated in physical therapy and made slow progress. He is rather adamant that he will be going home with family assistance rather than an extended care facility. He has worked hard with therapy and seems to be sufficiently safe and functional to allow discharge home at this point. DISCHARGE MEDICATIONS: Include Xarelto 10 mg daily, hydrocodone 10 mg every 6 hours as needed for pain, Zocor 20 mg daily, Januvia 100 mg daily, aspirin 81 mg daily, Glucotrol 10 mg daily, vitamin B complex once daily, metformin 1000 mg twice daily, calcium carbonate 600 mg daily, lisinopril 20 mg daily. He will continue walker ambulation with partial weightbearing on the left side. He is instructed to be very careful to avoid excessive weightbearing or any new accidents or injuries. He states he has adequate assistance with family at home. I believe there will also be some visiting therapy and nursing assistance as needed. I have asked him to call me if there are any problems or questions. I will plan to see him back for office followup and x-ray in 2 weeks. <ELECTRONICALLY SIGNED> By: Baldomero Ruiz MD 09/01/20 1243 1058 1118 Baldomero Ruiz MD /nt
== END 2020-08-31 13:34 | disposition home or self-care (01) ==
LOC: OR 07:53 → TBA 07:53 → OR 09:41 → 4S 17:08 → OR 17:09 → 4S 08-31 13:34
PROVIDERS: Hospitalist; ADMIT Orthopaedic Surgery; ATTEND Orthopaedic Surgery
DX: S72.002A Fracture of unspecified part of neck of left femur, initial encounter for closed fracture (principal); E11.9 Type 2 diabetes mellitus without complications; I10 Essential (primary) hypertension; E78.5 Hyperlipidemia, unspecified; Z79.82 Long term (current) use of aspirin; Z79.84 Long term (current) use of oral hypoglycemic drugs; Z20.822 Contact with and (suspected) exposure to COVID-19; W19.XXXA Unspecified fall, initial encounter; Y93.89 Activity, other specified; Y92.89 Other specified places as the place of occurrence of the external cause
CPT/HCPCS: 50101; 50386; 51412; 51538; 52304; 53400; 53404; 56525; 57092; 62110; 62900; 70005

== ENCOUNTER → 2020-11-23 | Outpatient (CLI) | payer OTHER ==
[~2020-11-23] MED LIST changes: +XARELTO10 MG PO; +ZESTRIL20 MG PO
== END ==
LOC: SJCVC 10:33
PROVIDERS: ATTEND Internal Medicine Cardiovascular Disease
DX: I45.2 Bifascicular block (principal); R94.31 Abnormal electrocardiogram [ECG] [EKG]; I49.1 Atrial premature depolarization; I25.10 Atherosclerotic heart disease of native coronary artery without angina pectoris; I10 Essential (primary) hypertension; E78.00 Pure hypercholesterolemia, unspecified; R60.9 Edema, unspecified; E11.29 Type 2 diabetes mellitus with other diabetic kidney complication; R80.9 Proteinuria, unspecified; J44.9 Chronic obstructive pulmonary disease, unspecified; E66.9 Obesity, unspecified; I12.0 Hypertensive chronic kidney disease with stage 5 chronic kidney disease or end stage renal disease; N18.9 Chronic kidney disease, unspecified; M19.072 Primary osteoarthritis, left ankle and foot; E66.01 Morbid (severe) obesity due to excess calories; G47.33 Obstructive sleep apnea (adult) (pediatric); M17.11 Unilateral primary osteoarthritis, right knee; J96.20 Acute and chronic respiratory failure, unspecified whether with hypoxia or hypercapnia; G25.81 Restless legs syndrome; M06.9 Rheumatoid arthritis, unspecified; M48.061 Spinal stenosis, lumbar region without neurogenic claudication; M54.16 Radiculopathy, lumbar region; Z86.718 Personal history of other venous thrombosis and embolism; Z72.89 Other problems related to lifestyle; Z91.048 Other nonmedicinal substance allergy status; Z79.84 Long term (current) use of oral hypoglycemic drugs; Z79.899 Other long term (current) drug therapy; Z87.891 Personal history of nicotine dependence; Z79.82 Long term (current) use of aspirin

== ENCOUNTER 2021-05-19 13:46 | Emergency (ER) | payer OTHER ==
[~2021-05-19] VITALS: Ht 175.3 cm; Wt 145.2 kg
[2021-05-19 14:37] LABS: ABSOLUTE NEUTROPHILS 4.3 thou/uL (1.4-8.2); BASOPHILS 0.6 % (0.0-2.0); HEMATOCRIT 39.5 % (42.0-52.0); HEMOGLOBIN 12.9 gm/dL (14.0-18.0); LYMPHOCYTES 22.5 % (24.0-44.0); MCH 27.8 pg (26.0-34.0); MCHC 32.7 g/dL (28.0-37.0); MONOCYTES 11.5 % (1.0-8.0); PLATELET COUNT 299 thou/uL (150-400); POLYS 61.4 % (36.0-66.0); RBC 4.65 mil/uL (4.50-6.00); RDW 15.6 % (10.5-14.5); WBC 7.1 thou/uL (4.0-11.0)
[2021-05-19 14:41] LABS: ANION GAP 11 mmol/L (7-16); BUN 21 mg/dL (7-18); CALCIUM 8.8 mg/dL (8.5-10.1); CHLORIDE 104 mmol/L (98-107); CO2 24 mmol/L (21-32); CREATININE 1.4 mg/dL (0.7-1.3); GLUCOSE 197 mg/dL (74-106); POTASSIUM 4.2 mmol/L (3.5-5.1); SODIUM 139 mmol/L (136-145)
[2021-05-19 14:51] LABS: ALBUMIN 3.2 g/dL (3.4-5.0); AMYLASE 63 U/L (25-115); DIRECT BILIRUBIN < 0.1 mg/dL (<0.1-0.2); LIPASE 85 U/L (73-393); MAGNESIUM 1.4 mg/dL (1.8-2.4); SGOT 21 U/L (15-37); SGPT 18 U/L (30-65); TOTAL BILIRUBIN 0.3 mg/dL (0.2-1.0); TOTAL PROTEIN 7.3 g/dL (6.4-8.2)
[2021-05-19 17:20] VITALS: BP 141/53
--- NOTE | 2021-05-20 07:06 | EKG ---
[address] [address] ELECTROCARDIOGRAM REPORT Name: CHUCKIE CONTRERAS [id number] Admission: 05/19/21 Attend Phys: Discharge: 05/19/21 Date of : 48 Report #: [id number] [facility] ED Test Date: 2021-05-19 Test Time: 13:59:50 Pat Name: CHUCKIE CONTRERAS Department: Room: Gender: M Farm Hand: FRANCISCO : 1950 Requested By: Db Zepeda Order Number: [id number] MD: Oscar Brennan Measurements Intervals [place] Rate: 77 P: 42 OH: 213 QRS: -50 QRSD: 145 T: 23 QT: 423 QTc: 479 Interpretive Statements Sinus rhythm Borderline prolonged OH interval RBBB and LAFB Compared to ECG 04/02/2020 08:59:31 Left anterior fascicular block now present Right bundle-branch block now present Left-axis deviation no longer present Electronically Signed On 05-20-2021 7:06:02 [employer] by Oscar Brennan [email or web address] <ELECTRONICALLY SIGNED> By: Oscar Brennan MD, FACC 05/20/21 0706 1359 1359 Oscar Brennan MD, [facility] /EPI
[2021-05-25] MEDS ORDERED: BASAGLAR K100 UNIT/1 SUBQ (08:44)
[2021-05-25] MEDS ORDERED: IRON325 M1 PO (08:44)
== END 2021-05-19 17:20 | disposition home or self-care (01) ==
LOC: ER 13:46
PROVIDERS: Emergency Medicine
DX: R07.89 Other chest pain (principal); E11.9 Type 2 diabetes mellitus without complications; I10 Essential (primary) hypertension; E78.5 Hyperlipidemia, unspecified; J44.9 Chronic obstructive pulmonary disease, unspecified; I73.9 Peripheral vascular disease, unspecified; Z98.890 Other specified postprocedural states; Z85.51 Personal history of malignant neoplasm of bladder; Z90.89 Acquired absence of other organs; Z79.891 Long term (current) use of opiate analgesic; Z79.82 Long term (current) use of aspirin; Z79.899 Other long term (current) drug therapy; Z79.1 Long term (current) use of non-steroidal anti-inflammatories (NSAID); Z88.2 Allergy status to sulfonamides; Z88.8 Allergy status to other drugs, medicaments and biological substances; Z87.891 Personal history of nicotine dependence

== ENCOUNTER → 2021-05-21 | Outpatient (CLI) | payer OTHER ==
[~2021-05-21] MED LIST changes: +IRON325 M1 PO
== END ==
LOC: SJCVCIMAG 07:02
PROVIDERS: ATTEND Internal Medicine Cardiovascular Disease
DX: I25.9 Chronic ischemic heart disease, unspecified (principal); I25.10 Atherosclerotic heart disease of native coronary artery without angina pectoris; I12.9 Hypertensive chronic kidney disease with stage 1 through stage 4 chronic kidney disease, or unspecified chronic kidney disease; E11.22 Type 2 diabetes mellitus with diabetic chronic kidney disease; N18.9 Chronic kidney disease, unspecified; E78.00 Pure hypercholesterolemia, unspecified; R60.9 Edema, unspecified; R00.1 Bradycardia, unspecified; J44.9 Chronic obstructive pulmonary disease, unspecified; G47.33 Obstructive sleep apnea (adult) (pediatric); Z88.8 Allergy status to other drugs, medicaments and biological substances; Z79.82 Long term (current) use of aspirin; Z79.4 Long term (current) use of insulin; Z79.899 Other long term (current) drug therapy; Z79.01 Long term (current) use of anticoagulants; Z87.891 Personal history of nicotine dependence

== ENCOUNTER → 2021-05-25 | Outpatient (CLI) | payer OTHER ==
[~2021-05-25] VITALS: Ht 175.3 cm; Wt 147.4 kg
[2021-05-25 08:18] VITALS: BP 133/70
--- NOTE | 2021-05-25 14:42 | CATHLAB ---
[facility] [address] [address] INVASIVE PROCEDURE REPORT Name: CHUCKIE CONTRERAS Room #: REG JOHNNIE DeweyClair#: [id number] Admission: 05/25/21 Attend Phys: Сергей Mariee MD Discharge: Date of : 48 Report #: [id number] THIS REPORT FOR: cc: Estuardo Paul Steven F. DO Park, Jin S. MD ~ APPROVED REPORT Study performed: 05/25/2021 11:33:24 Patient Details Patient Status: Out-Patient Room #: The patient is a 71 year-old male Event Personnel Сергей Mariee Room Manager, Sandra Trinidad RN RN, Ashleigh Stovall Paschal, Ja'net RTR Monitor Procedures Performed Art Access - R radial artery Art Access - R femoral artery* Left Heart Cath w/or w/o Coronaries [id number] [facility] Hemostasis w/ Mynx Hemostasis with Hemoband Indication Dyspnea, Positive stress test, Chest pain Risk Factors Obesity, HypercholesterolemiaPhysical Activity, Coronary Artery DiseaseHypertension, Diabetes Procedure Narrative The patient was brought electively to the Cardiac Catheterization Laboratory and was prepped and draped in a sterile manner. The Right Wrist^ was infiltrated with 1% Lidocaine subcutaneous anesthesia. A PINNACLE 5FR Sheath #[id number] sheath was inserted into the RFA^. Coronary angiography was performed using coronary diagnostic catheters. The right coronary system was accessed and visualized with a 5FR JR 4 #[id number] catheter. The left coronary system was accessed and visualized with a 5FR JL5 #[id number] catheter. The left ventricle was accessed and visualized with a 5FR PIG 145 ANGLED #[id number] catheter. Left ventricular/Aortic Valve gradient assessed via catheter pullback. Left ventriculogram was performed in 30 degree projection. Closure device was deployed with a Fr MYNXGRIP 5F #[id number]. The patient tolerated the procedure well and there were no [facility] [address] [place] [address] INVASIVE PROCEDURE REPORT Name: CHUCKIE CONTRERAS SELENA Room #: REG [facility]#: [id number] Admission: 05/25/21 Attend Phys: Сергей Mariee MD Discharge: Date of : 48 Report #: [id number] complications associated with the procedure. There was no hematoma. Attempted right wrist was unsuccessful. Intraoperative Conscious Sedation Sedation start time: 11:42 Case end Time: 12:21 Fentanyl 50 mcg Versed 1 mg Fluoro Time: 4.34 minutes Dose: DAP 74816.40 cGycm2 1358 mGy Contrast Type and Amount: Visipaque 80 ml Coronary Angiography The patient's coronary anatomy is co- dominant. Diagnostic Cath Left Main The left main artery is a large-caliber vessel, patent with no flow-limiting lesions. LAD The LAD is a moderate-sized caliber vessel, traversing the anterior wall and wrapping around the apex. There is minimal plaquing in the proximal segment, 10%. Diagonal 1 This is a moderate-sized caliber vessel, patent with no flow-limiting lesions. Diagonal 2 This is a moderate-sized caliber vessel, patent with no flow-limiting lesions. Circumflex The left circumflex artery is a codominant vessel, patent with no flow-limiting lesions. OM1 This is a moderate-sized caliber vessel with a high takeoff from the left circumflex proper. This vessel is patent with no flow-limiting lesions. OM2 This is a small to moderate-sized caliber vessel, with no flow-limiting lesions. OM3 This is a moderate-sized caliber vessel, patent with no flow-limiting lesions. Right Coronary There is mild disease in the proximal RCA, 10%. R PDA This is a moderate-sized caliber vessel, patent with no flow-limiting lesions. Left Ventriculography Left Ventriculography was not performed. Ejection Fraction was 55-60% based off patient's Nuclear Cardiac Stress Test. An LVEDP was measured and there is no gradient across the outflow tract. Hemodynamics The aortic pressure is 144/75 mmHg with a mean of 95 mmHg. The left [facility] [address] [place] [address] INVASIVE PROCEDURE REPORT Name: CHUCKIE CONTRERAS [facility]: [id number] Admission: 05/25/21 Attend Phys: Сергей Mariee MD Discharge: Date of : 48 Report #: [id number] ventricular pressure is 160/0 mmHg with a mean of mmHg. The left ventricular end diastolic pressure is 25 mmHg. Pullback from the left ventricle to the aorta revealed no gradient across the aortic valve. Conclusion 1. There is minimal plaquing in the proximal LAD and RCA. 2. This is a codominant system. 3. There is normal LV systolic function. 4. Recommend risk factor management. <ELECTRONICALLY SIGNED> By: Сергей Mariee MD 05/25/211440 40 40 Сергей Mariee MD /INF
== END | disposition home or self-care (01) ==
LOC: CATH 07:35
PROVIDERS: ATTEND Internal Medicine Cardiovascular Disease
DX: R07.9 Chest pain, unspecified (principal); R94.39 Abnormal result of other cardiovascular function study; R06.00 Dyspnea, unspecified; I25.10 Atherosclerotic heart disease of native coronary artery without angina pectoris; I12.9 Hypertensive chronic kidney disease with stage 1 through stage 4 chronic kidney disease, or unspecified chronic kidney disease; N18.9 Chronic kidney disease, unspecified; E11.22 Type 2 diabetes mellitus with diabetic chronic kidney disease; E78.00 Pure hypercholesterolemia, unspecified; E66.01 Morbid (severe) obesity due to excess calories; J44.9 Chronic obstructive pulmonary disease, unspecified; M19.90 Unspecified osteoarthritis, unspecified site; G47.33 Obstructive sleep apnea (adult) (pediatric); M10.9 Gout, unspecified; Z98.890 Other specified postprocedural states; Z79.899 Other long term (current) drug therapy; Z88.8 Allergy status to other drugs, medicaments and biological substances; Z87.891 Personal history of nicotine dependence; Z79.4 Long term (current) use of insulin

== ENCOUNTER → 2021-06-14 | Outpatient (CLI) | payer OTHER | LOC: SJCVC 14:30 | PROVIDERS: ATTEND Internal Medicine Cardiovascular Disease | DX: I45.2 Bifascicular block (principal); R94.31 Abnormal electrocardiogram [ECG] [EKG]; I25.10 Atherosclerotic heart disease of native coronary artery without angina pectoris; I10 Essential (primary) hypertension; E78.00 Pure hypercholesterolemia, unspecified; R60.9 Edema, unspecified; R00.1 Bradycardia, unspecified; Z88.8 Allergy status to other drugs, medicaments and biological substances; F17.210 Nicotine dependence, cigarettes, uncomplicated; Z79.82 Long term (current) use of aspirin; Z79.84 Long term (current) use of oral hypoglycemic drugs; Z79.899 Other long term (current) drug therapy; Z82.49 Family history of ischemic heart disease and other diseases of the circulatory system ==

== ENCOUNTER → 2021-07-14 | Outpatient (CLI) | payer OTHER | LOC: SJCVC 10:39 | PROVIDERS: ATTEND Internal Medicine Cardiovascular Disease | DX: I25.10 Atherosclerotic heart disease of native coronary artery without angina pectoris (principal); Z79.82 Long term (current) use of aspirin; Z79.84 Long term (current) use of oral hypoglycemic drugs; Z79.899 Other long term (current) drug therapy ==

== ENCOUNTER → 2021-07-26 | Outpatient (CLI) | payer OTHER ==
[~2021-07-26] VITALS: Ht 175.3 cm; Wt 145.2 kg
[~2021-07-26] MED LIST changes: +ADULT LOW DOSE81 MG PO; -ASPIR 8181 MG PO; +BENICAR40 MG PO; -SUPER B COMPLE1 EAC2 PO; +VITAMIN B COMP1 EACH PO; +VITAMIN E400 UNI2 PO
--- NOTE | 2021-07-28 10:08 | PATH ---
[facility] [address] [address] PATHOLOGY RPT PROCEDURE Name: LUIS FERNANDO [place] Room #: REG JOHNNIE Dewey.#: [id number] Admission: 07/26/21 Date of : 48 Discharge: Report #: [id number] Path Case #: [id number] [facility] Accession Number: [id number] . 01 Material submitted: . PART A: gastrointestinal site - GASTRIC NODULE PART B: esophagus - ESOPHAGEAL BIOPSY 34 CM FROM INCISOR PART C: esophagus - ESOPHAGEAL BIOPSY 35 CM FROM INCISOR PART D: esophagus - ESOPHAGEAL BIOPSY 36 CM FROM INCISOR . 01 Clinical history: . EGD ESOPHAGITIS, NON CARDIAC CHEST PAIN, HX OF SENIOR'S GASTRITIS . 01 Diagnosis: A. Gastric biopsy "gastric nodule": - Focally hyperplastic gastric mucosa consistent with a hyperplastic polyp. - Lamina propria xanthelesma - There is no evidence of adenomatous change, high-grade dysplasia or malignancy. - The immunoperoxidase stain for Helicobacter pylori is negative. . B. Squamous and glandular mucosa "esophageal biopsy 34 cm from incisor": - Senior's esophagus with focal mild dysplasia. See comment. . C. Squamous and glandular mucosa "esophageal biopsy 35 cm from incisor": - Senior's esophagus with mild dysplasia. See comment. . D. Esophagus "esophageal biospy 36 cm from incisor": - Senior's esophagus with focal mild dysplasia. See comment. (CIRA:taco; 07/27/2021) S 07/27/2021 1528 Local . 01 Comment: A, B, C, D - This case is also reviewed by Dr. Marvin Hood. He agrees with the above diagnosis. (SHA:taco; 07/27/2021) . 01 Electronically signed: . Jimi Cullen MD, Pathologist NPI- [id number] . 01 Gross description: . A. The specimen is received in formalin, labeled "Luis Fernando [place], gastric nodule". Received are 2 segments [place] [address] PATHOLOGY RPT PROCEDURE Name: LUIS FERNANDO NJOY Room #: REG CL Batsheva#: [id number] Admission: 07/26/21 Date of : 48 Discharge: Report #: [id number] Path Case #: [id number] measuring 0.3 cm in maximum dimensions. The specimen is entirely submitted in cassette A1. . B. The specimen is received in formalin, labeled "OndinaSailajah, esophageal biopsy 34 cm from incisor". Received are 3 segments of pale burns tissue ranging in size from 0.3-0.7 cm in maximum dimensions. The specimen is entirely submitted in cassette B1. . C. The specimen is received in formalin, labeled "OndinaFaisalLuis Fernando, esophageal biopsy at 35 cm from incisors". Received are multiple fragments of pale burns tissue ranging in size from 0.2-0.5 cm in maximum dimensions. The specimen is entirely submitted in cassette C1. . D. The specimen is received in formalin, labeled "OndinaFaisalLuis Fernando, esophageal biopsy at 36 cm from incisor". Received are 3 segments of pale burns tissue ranging in size from 0.2-0.4 cm in maximum dimensions. The specimen is entirely submitted in cassette D1. ([facility]; 07/26/2021) NRI/NRI 07/26/2021 2031 Local . 01 Pathologist provided ICD-10: K22.710, K20.90, R07.9, K29.70 . 01 CPT . 822343, 520054, 504957, 394218, R87672 Specimen Comment: A courtesy copy of this report has been sent to [phone] Specimen Comment: [id number] Specimen Comment: Report sent to / DR MORAES Performed at: 01 [facility] [address], [place], [place] [id number] MD Jimi Cullen MD Phone: [phone]
== END | disposition home or self-care (01) ==
LOC: GI 05:41
PROVIDERS: ATTEND Internal Medicine Gastroenterology
DX: K22.710 Barrett's esophagus with low grade dysplasia (principal); R07.9 Chest pain, unspecified; G47.30 Sleep apnea, unspecified; K31.89 Other diseases of stomach and duodenum; K29.70 Gastritis, unspecified, without bleeding; K31.7 Polyp of stomach and duodenum; K44.9 Diaphragmatic hernia without obstruction or gangrene; I10 Essential (primary) hypertension; E78.00 Pure hypercholesterolemia, unspecified; I73.9 Peripheral vascular disease, unspecified; E11.9 Type 2 diabetes mellitus without complications; K21.00 Gastro-esophageal reflux disease with esophagitis, without bleeding; M06.9 Rheumatoid arthritis, unspecified; M10.9 Gout, unspecified; Z20.822 Contact with and (suspected) exposure to COVID-19; Z98.890 Other specified postprocedural states; Z79.899 Other long term (current) drug therapy
CPT/HCPCS: 62110; 62900

== ENCOUNTER → 2021-08-16 | Outpatient (CLI) | payer OTHER | LOC: SJCVC 10:56 | PROVIDERS: ATTEND Internal Medicine Cardiovascular Disease | DX: I10 Essential (primary) hypertension (principal); E11.69 Type 2 diabetes mellitus with other specified complication; I25.10 Atherosclerotic heart disease of native coronary artery without angina pectoris; M48.061 Spinal stenosis, lumbar region without neurogenic claudication; J44.9 Chronic obstructive pulmonary disease, unspecified ==

== ENCOUNTER → 2021-08-27 | Outpatient (CLI) | payer OTHER | LOC: LAB 09:52 | PROVIDERS: ATTEND Student in an Organized Health Care Education/Training Program | DX: Z01.818 Encounter for other preprocedural examination (principal); Z20.822 Contact with and (suspected) exposure to COVID-19 ==

== ENCOUNTER → 2021-08-27 | Outpatient (CLI) | payer OTHER | LOC: CAT 09:50 | PROVIDERS: ATTEND Internal Medicine | DX: Z12.2 Encounter for screening for malignant neoplasm of respiratory organs (principal); J43.9 Emphysema, unspecified; I25.10 Atherosclerotic heart disease of native coronary artery without angina pectoris; R91.8 Other nonspecific abnormal finding of lung field; M25.78 Osteophyte, vertebrae; Z87.891 Personal history of nicotine dependence ==

== ENCOUNTER → 2021-08-30 | Outpatient (CLI) | payer OTHER ==
[~2021-08-30] VITALS: Ht 175.3 cm; Wt 149.7 kg
== END | disposition home or self-care (01) ==
LOC: GI 07:03
PROVIDERS: ATTEND Internal Medicine Gastroenterology
DX: Z12.11 Encounter for screening for malignant neoplasm of colon (principal); K63.5 Polyp of colon; K22.710 Barrett's esophagus with low grade dysplasia; K44.9 Diaphragmatic hernia without obstruction or gangrene; I12.9 Hypertensive chronic kidney disease with stage 1 through stage 4 chronic kidney disease, or unspecified chronic kidney disease; E11.22 Type 2 diabetes mellitus with diabetic chronic kidney disease; N18.9 Chronic kidney disease, unspecified; E78.00 Pure hypercholesterolemia, unspecified; I25.10 Atherosclerotic heart disease of native coronary artery without angina pectoris; J44.9 Chronic obstructive pulmonary disease, unspecified; K21.9 Gastro-esophageal reflux disease without esophagitis; G47.30 Sleep apnea, unspecified; M19.90 Unspecified osteoarthritis, unspecified site; I73.89 Other specified peripheral vascular diseases; Z85.51 Personal history of malignant neoplasm of bladder; Z98.890 Other specified postprocedural states; Z79.899 Other long term (current) drug therapy; Z88.8 Allergy status to other drugs, medicaments and biological substances
CPT/HCPCS: 62110; 62900